=== PATIENT | male | born 1940 | race American Indian/Alaskan Native ===

== ENCOUNTER 2018-06-25 11:27 | Inpatient (IN) | payer MEDICARE ==
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
[2018-06-25 13:42] LABS: Hematocrit 49.8 % (35.5-45.6); Hemoglobin 16.3 gm/dl (11.8-15.2); Mean Corpuscular HGB Conc 33 % (32-34); Mean Corpuscular Volume 90 fl (84-94); Platelet Count 323 K/mm3 (140-440); Red Blood Count 5.52 M/mm3 (3.65-5.03); Red Cell Distribution Width 15.5 % (13.2-15.2)
[2018-06-25 13:45] LABS: Albumin 3.3 g/dL (3.9-5); Calcium 8.7 mg/dL (8.4-10.2)
[2018-06-25 13:51] LABS: INR 1.47 (0.87-1.13)
[2018-06-25 13:53] LABS: Partial Thromboplastin Time 34.5 Sec. (24.2-36.6)
[2018-06-25] MEDS ORDERED: NACL 0.9% 1000 ML 1,000 ML IV ONE (14:02)
[2018-06-25 15:13] LABS: Basophils % (Manual) 0 % (0.0-1.8); Eosinophils % (Manual) 0 % (0.0-4.3); RBC Morphology Normal; Total Cells Counted 100
[2018-06-25 15:21] LABS: Chol/HDL Ratio 6.1 %
--- NOTE | 2018-06-25 15:34 | XRay Report ---
PROCEDURE: XR CHEST 1V AP TECHNIQUE: Chest radiograph, AP view. HISTORY: fall/chest pain COMPARISONS: None currently available. FINDINGS: Cardiac silhouette is within normal limits. There is no effusion. There is no pneumothorax. There is no consolidation. There are no suspicious osseous lesions. Degenerative changes in both shoulders. IMPRESSION: * No acute cardiopulmonary findings. This document is electronically signed by Jaun Ellington MD., June 25 2018 03:32:23 PM ET
[2018-06-25] MEDS ORDERED: VANCOMYCIN/NS 1 GM/250 ML 1 GM/250 ML BAG IV ONE (15:35)
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
[2018-06-25] MEDS ORDERED: VANCOMYCIN 2,000 MG in NACL 0.9% 500 ML 500 ML IV ONE (16:00)
--- NOTE | 2018-06-25 16:07 | History and Physical Report ---
History of Present Illness Chief complaint: Unresponsive History of present illness: 78 YO Male Assisted Living Facility Resident with HTN, Hypothyroidism, BPH, HLD, Sacral Decubitus Ulcers presents to ED for evaluation. Pt is nonverbal/confused and unable to provide history. History taken from ED Staff, EMS, and [facility] staff. As per staff, the patient was found to be confused with his clothes soiled in urine. Pt was last seen 4 days ago getting his mail. Maintenance personnel for the [facility] went into his apartment today and found the patient lying the floor. EMS notified and upon arrival the patient was found to be in distress and transported to [facility] ED. Pt seen and evaluated in ED and found to have Sepsis, Acidosis, Hypernatremia secondary to Volume Depletion, Rhabdomyolysis, Elevated LFT's, and Acute Renal Failure versus End Stage Renal Disease. Pt is lethargic, but is able to protect his airway, and has a positive gag reflex. Nephrology consulted in ED. Pt admitted to [facility] and initiated on sepsis protocol. No prior admissions for review. All listed medication reconciled at time of admission. Past History Past Medical History: hypertension, hyperlipidemia, hypothyroidism, other (BPH, Sacral Decubitus Ulcers) Past Surgical History: No surgical history, Other (UTO) Social history: single. denies: smoking, alcohol abuse, prescription drug abuse Family history: hypertension Medications and Allergies Allergies Allergy/AdvReac Type Severity Reaction Status Date / Time No Known Allergies Allergy Unverified 06/25/18 12:55 Home Medications Medication Instructions Recorded Confirmed Last Taken Type Amlodipine Besylate/Benazepril 1 each PO DAILY 06/25/18 06/25/18 Unknown History [Amlodipine-Benazepril 5-20 mg] Aspirin [Adult Aspirin Regimen] 81 mg PO DAILY 06/25/18 06/25/18 Unknown History AtorvaSTATin [Lipitor] 40 mg PO QHS 06/25/18 06/25/18 Unknown History Losartan [Cozaar] 100 mg PO QDAY 06/25/18 06/25/18 Unknown History Tamsulosin [Flomax] 0.4 mg PO QDAY 06/25/18 06/25/18 Unknown History Active Meds: Active Medications Vancomycin HCl 2,000 mg/ (Sodium Chloride) 540 mls @ 250 mls/hr IV ONCE ONE Stop: 06/25/18 18:09 Review of Systems ROS unobtainable: due to mental status Exam - Constitutional Vitals: Temp Pulse Resp BP Pulse Ox 97.4 F L 114 H 16 113/78 98 06/25/18 12:45 06/25/18 12:45 06/25/18 12:45 06/25/18 12:45 06/25/18 12:45 General appearance: Present: severe distress - EENT Eyes: Present: miosis ENT: poor dentition - Neck Neck: Present: supple, normal ROM - Respiratory Respiratory effort: normal Respiratory: bilateral: CTA - Cardiovascular Heart Sounds: Present: S1 & S2. Absent: rub, click - Extremities Extremities: abnormal (contracture) Extremity abnormal: ulceration Peripheral Pulses: abnormal - Abdominal General gastrointestinal: Present: soft, non-tender, non-distended, normal bowel sounds Male genitourinary: Present: normal - Integumentary Integumentary: Present: dry, clammy, decreased turgor - Musculoskeletal Musculoskeletal: generalized weakness - Psychiatric Psychiatric: no appropriate mood/affect, no intact judgment & insight, no memory intact - Neurologic Neurologic: moves all extremities, no gait normal Results - Labs CBC & Chem 7: 06/25/18 13:29 06/25/18 13:13 Labs: Abnormal lab results 06/25/18 06/25/18 06/25/18 Range/Units 13:13 13:29 13:29 WBC 26.7 H (4.5-11.0) K/mm3 RBC 5.52 H (3.65-5.03) M/mm3 Hgb 16.3 H (11.8-15.2) gm/dl Hct 49.8 H (35.5-45.6) % RDW 15.5 H (13.2-15.2) % Seg Neuts % (Manual) 87.0 H (40.0-70.0) % Lymphocytes % (Manual) 5.0 L (13.4-35.0) % Monocytes % (Manual) 8.0 H (0.0-7.3) % Seg Neutrophils # Man 23.2 H (1.8-7.7) K/mm3 Monocytes # (Manual) 2.1 H (0.0-0.8) K/mm3 PT 18.8 H (12.2-14.9) Sec. INR 1.47 H (0.87-1.13) Sodium 156 H (137-145) mmol/L Chloride 111.4 H (98-107) mmol/L Carbon Dioxide 15 L (22-30) mmol/L BUN 162 H (9-20) mg/dL Creatinine 8.2 H (0.8-1.5) mg/dL Glucose 190 H (75-100) mg/dL Lactic Acid (0.7-2.0) mmol/L Total Bilirubin 3.20 H (0.1-1.2) mg/dL AST 100 H (5-40) units/L ALT 134 H (7-56) units/L Alkaline Phosphatase 170 H (35-129) units/L Total Creatine Kinase (55-170) units/L Troponin T (0.00-0.029) ng/mL Albumin 3.3 L (3.9-5) g/dL Triglycerides (2-149) mg/dL HDL Cholesterol (40-59) mg/dL 06/25/18 06/25/18 Range/Units 13:29 13:29 WBC (4.5-11.0) K/mm3 RBC (3.65-5.03) M/mm3 Hgb (11.8-15.2) gm/dl Hct (35.5-45.6) % RDW (13.2-15.2) % Seg Neuts % (Manual) (40.0-70.0) % Lymphocytes % (Manual) (13.4-35.0) % Monocytes % (Manual) (0.0-7.3) % Seg Neutrophils # Man (1.8-7.7) K/mm3 Monocytes # (Manual) (0.0-0.8) K/mm3 PT (12.2-14.9) Sec. INR (0.87-1.13) Sodium (137-145) mmol/L Chloride (98-107) mmol/L Carbon Dioxide (22-30) mmol/L BUN (9-20) mg/dL Creatinine (0.8-1.5) mg/dL Glucose (75-100) mg/dL Lactic Acid 6.70 H* (0.7-2.0) mmol/L Total Bilirubin (0.1-1.2) mg/dL AST (5-40) units/L ALT (7-56) units/L Alkaline Phosphatase (35-129) units/L Total Creatine Kinase 5097 H (55-170) units/L Troponin T 0.085 H (0.00-0.029) ng/mL Albumin (3.9-5) g/dL Triglycerides 167 H (2-149) mg/dL HDL Cholesterol 30 L (40-59) mg/dL Assessment and Plan - Patient Problems (1) Sepsis Current Visit: Yes Status: Acute Qualifiers: Sepsis type: sepsis due to unspecified organism Qualified Code(s): A41.9 - Sepsis, unspecified organism Plan to address problem: Sepsis protocol: IV antibiotic therapy, blood cultures, urinalysis, chest x ray, CBC, CMP, monitor uop q shift, iv pressor support as clinically indicated, Admit to IMCU. (2) Rhabdomyolysis Current Visit: Yes Status: Acute Qualifiers: Encounter type: initial encounter Plan to address problem: IVF resuscitation, monitor uop q shift, IV bicarbonate x1, nephrology consulted, repeat CK level in AM. (3) Elevated LFTs Current Visit: Yes Status: Acute Plan to address problem: Abdominal ultrasound to assess liver, hepatitis panel, (4) ARF (acute renal failure) with tubular necrosis Current Visit: Yes Status: Acute Plan to address problem: IVF resuscitation therapy, monitor uop q shift, avoid nephrotoxic agents, PSA level, urine electrolytes, nephrology consulted (5) Volume depletion Current Visit: Yes Status: Acute Plan to address problem: IVF resuscitation therapy, monitor uop q shift. (6) Encephalopathy Current Visit: Yes Status: Acute Plan to address problem: CT Head/Brain without contrast, neuro checks, seizure precautions, aspiration precautions, (7) DVT prophylaxis Current Visit: Yes Status: Acute Plan to address problem: SCD to BLE while in bed, prophylactic heparin
[2018-06-25] MEDS ORDERED: NACL 0.9% 1000 ML IV ONE (16:47)
[2018-06-25] MEDS ORDERED: SODIUM CHLORIDE FLUSH SYRINGE 10 ML IV PRN (16:47)
[2018-06-25 17:38] LABS: Hepatitis B Surface Antigen Non-Reactive (Negative); Hepatitis C Virus Antibody Non-Reactive (NonReactive)
[2018-06-25] MEDS ORDERED: NACL 0.9% 1000 ML 1,000 ML ONE (18:53)
--- NOTE | 2018-06-25 20:22 | Cat Scan Report ---
PROCEDURE: CT CERVICAL SPINE WO CON HISTORY: AMS, fall FINDINGS: Unenhanced CT of the cervical spine was performed and data was reformatted in the sagittal and coronal planes. These images demonstrate no fracture or malalignment of the cervical spine. There is anterior plate e cindi at C3 C4, C4 C5, C5 C6 and C6-C7. The prevertebral soft tissues are within normal limits. There is COPD at the pulmonary apices. There is atherosclerosis of the cervical arterial vasculature. IMPRESSION: No fracture is seen in the cervical spine This document is electronically signed by Adiel Brandt MD., June 25 2018 08:20:32 PM ET
--- NOTE | 2018-06-25 20:24 | Cat Scan Report ---
PROCEDURE: CT HEAD/BRAIN WO CON HISTORY: Altered Mental Status FINDINGS: Unenhanced CT of the brain was performed and demonstrates no acute intracranial hemorrhage, extra-axial fluid collection, midline shift or mass effect. The ventricles and basal cisterns are no t effaced. 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 There is an old left periventricular white mae er infarct, 1.7 x 0.8 cm. No definite acute infarct is seen. MRI may be considered if patient has persistent altered mental sta tus. The mastoid air cells and middle ears appear clear. There is no evidence of acute sinusitis. IMPRESSION: No acute intracranial hemorrhage This document is electronically signed by Adiel Brandt MD., June 25 2018 08:22:08 PM ET
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
[2018-06-26] MEDS: ZOSYN/NS 4.5GM/100ML 4.5 GM/100 ML VIAL IV SCH (02:40)
[2018-06-26] MEDS ORDERED: HEPARIN ONE ×3 (03:03→23:28)
[2018-06-26] MEDS ORDERED: ZOSYN/NS 4.5GM/100ML 0 GM/0 ML VIAL IV ONE (03:05)
[2018-06-26] MEDS: SODIUM CHLORIDE FLUSH SYRINGE 10 ML IV SCH ×3 (03:36→23:00)
[2018-06-26] MEDS: HEPARIN SUB-Q SCH ×3 (03:36→23:27)
--- NOTE | 2018-06-26 09:44 | Progress Note ---
Assessment and Plan Assessment and plan: --Sepsis/lactic acidosis/leukocytosis; Continue empiric antibiotics, follow cultures ID evaluation if needed --Hypernatremia; continue IV fluids Closely monitor electrolytes, nephrology following --Acute Renal failure: nephrology following --Hypertension; moderate control, continue current antihypertensives When necessary medications --Dyslipidemia; hold statin in view of rhabdomyolysis --Rhabdomyolysis CK 6427; hemodialysis, gentle hydration Closely monitor his CK levels --Bladder outlet obstruction; secondary to enlarged prostate Unable to pass Antoine catheter, urology consultation --Mild malnutrition/hypoalbuminemia; nutrition supplements and supportive care --Abdominal aortic aneurysm 6.5 cm impending rupture; on CT abdomen, Dr. Mazariegos discussed with vascular , advised to closely monitor medical management, no indication for patient transfer .Vascular following --DVT prophylaxis; heparin renal dose --Full CODE STATUS Plan monitor the patient closely and adjust management as needed Follow-up consults evaluation and recommendations Patient is critically ill with guarded prognosis No contact persons information/no next of kin information Available in the chart Critical care time 35 minutes History Interval history: Patient seen and examined medical records reviewed Patient looks critically ill, cachectic confused In mild distress, Noncommunicative, vital signs noted Awaiting IMCU bed assignment Hospitalist Physical - Constitutional Vitals: Temp Pulse Resp BP Pulse Ox 97.4 F L 110 H 28 H 131/70 100 06/25/18 12:45 06/26/18 08:16 06/26/18 08:16 06/26/18 08:16 06/26/18 08:16 General appearance: Present: severe distress, cachectic, disheveled - EENT Eyes: Present: PERRL, EOM intact - Neck Neck: Present: supple - Respiratory Respiratory effort: normal Respiratory: bilateral: diminished, rhonchi, negative: rales, wheezing - Cardiovascular Rhythm: regular Heart Sounds: Present: S1 & S2 - Extremities Extremities: no ischemia, No edema - Abdominal General gastrointestinal: soft, non-tender, non-distended, normal bowel sounds - Integumentary Integumentary: Present: clear, warm - Psychiatric Psychiatric: other (noncommunicative) - Neurologic Neurologic: other ( noncommunicative) Results - Labs CBC & Chem 7: 06/25/18 13:29 06/25/18 13:13 Labs: Laboratory Last Values WBC 26.7 K/mm3 (4.5-11.0) H 06/25/18 13:29 RBC 5.52 M/mm3 (3.65-5.03) H 06/25/18 13:29 Hgb 16.3 gm/dl (11.8-15.2) H 06/25/18 13:29 Hct 49.8 % (35.5-45.6) H 06/25/18 13:29 MCV 90 fl (84-94) 06/25/18 13:29 MCH 30 pg (28-32) 06/25/18 13:29 MCHC 33 % (32-34) 06/25/18 13:29 RDW 15.5 % (13.2-15.2) H 06/25/18 13:29 Plt Count 323 K/mm3 (140-440) 06/25/18 13:29 Add Manual Diff Complete 06/25/18 13:29 Total Counted 100 06/25/18 13:29 Seg Neutrophils % Life Educator 06/25/18 13:29 Seg Neuts % (Manual) 87.0 % (40.0-70.0) H 06/25/18 13:29 Band Neutrophils % 0 % 06/25/18 13:29 Lymphocytes % (Manual) 5.0 % (13.4-35.0) L 06/25/18 13:29 Reactive Lymphs % (Man) 0 % 06/25/18 13:29 Monocytes % (Manual) 8.0 % (0.0-7.3) H 06/25/18 13:29 Eosinophils % (Manual) 0 % (0.0-4.3) 06/25/18 13:29 Basophils % (Manual) 0 % (0.0-1.8) 06/25/18 13:29 Metamyelocytes % 0 % 06/25/18 13:29 Myelocytes % 0 % 06/25/18 13:29 Promyelocytes % 0 % 06/25/18 13:29 Blast Cells % 0 % 06/25/18 13:29 Nucleated RBC % Not Reportable 06/25/18 13:29 Seg Neutrophils # Man 23.2 K/mm3 (1.8-7.7) H 06/25/18 13:29 Band Neutrophils # 0.0 K/mm3 06/25/18 13:29 Lymphocytes # (Manual) 1.3 K/mm3 (1.2-5.4) 06/25/18 13:29 Abs React Lymphs (Man) 0.0 K/mm3 06/25/18 13:29 Monocytes # (Manual) 2.1 K/mm3 (0.0-0.8) H 06/25/18 13:29 Eosinophils # (Manual) 0.0 K/mm3 (0.0-0.4) 06/25/18 13:29 Basophils # (Manual) 0.0 K/mm3 (0.0-0.1) 06/25/18 13:29 Metamyelocytes # 0.0 K/mm3 06/25/18 13:29 Myelocytes # 0.0 K/mm3 06/25/18 13:29 Promyelocytes # 0.0 K/mm3 06/25/18 13:29 Blast Cells # 0.0 K/mm3 06/25/18 13:29 WBC Morphology Not Reportable 06/25/18 13:29 Hypersegmented Neuts Not Reportable 06/25/18 13:29 Hyposegmented Neuts Not Reportable 06/25/18 13:29 Hypogranular Neuts Not Reportable 06/25/18 13:29 Smudge Cells Not Reportable 06/25/18 13:29 Toxic Granulation Not Reportable 06/25/18 13:29 Toxic Vacuolation Not Reportable 06/25/18 13:29 Dohle Bodies Not Reportable 06/25/18 13:29 Pelger-Huet Anomaly Not Reportable 06/25/18 13:29 Palma Rods Not Reportable 06/25/18 13:29 Platelet Estimate Not Reportable 06/25/18 13:29 Clumped Platelets Not Reportable 06/25/18 13:29 Plt Clumps, EDTA Not Reportable 06/25/18 13:29 Large Platelets Not Reportable 06/25/18 13:29 Giant Platelets Not Reportable 06/25/18 13:29 Platelet Satelliting Not Reportable 06/25/18 13:29 Plt Morphology Comment Not Reportable 06/25/18 13:29 RBC Morphology Normal 06/25/18 13:29 Dimorphic RBCs Not Reportable 06/25/18 13:29 Polychromasia Not Reportable 06/25/18 13:29 Hypochromasia Not Reportable 06/25/18 13:29 Poikilocytosis Not Reportable 06/25/18 13:29 Anisocytosis Not Reportable 06/25/18 13:29 Microcytosis Not Reportable 06/25/18 13:29 Macrocytosis Not Reportable 06/25/18 13:29 Spherocytes Not Reportable 06/25/18 13:29 Pappenheimer Bodies Not Reportable 06/25/18 13:29 Sickle Cells Not Reportable 06/25/18 13:29 Target Cells Not Reportable 06/25/18 13:29 Tear Drop Cells Not Reportable 06/25/18 13:29 Ovalocytes Not Reportable 06/25/18 13:29 Helmet Cells Not Reportable 06/25/18 13:29 Quispe-Goree Bodies Not Reportable 06/25/18 13:29 [place] Rings Not Reportable 06/25/18 13:29 Narciso Cells Not Reportable 06/25/18 13:29 Bite Cells Not Reportable 06/25/18 13:29 Crenated Cell Not Reportable 06/25/18 13:29 Elliptocytes Not Reportable 06/25/18 13:29 Acanthocytes (Spur) Not Reportable 06/25/18 13:29 Rouleaux Not Reportable 06/25/18 13:29 Hemoglobin C Crystals Not Reportable 06/25/18 13:29 Schistocytes Not Reportable 06/25/18 13:29 Malaria parasites Not Reportable 06/25/18 13:29 Aniket Bodies Not Reportable 06/25/18 13:29 Hem Pathologist Commnt No 06/25/18 13:29 PT 18.8 Sec. (12.2-14.9) H 06/25/18 13:29 INR 1.47 (0.87-1.13) H 06/25/18 13:29 APTT 34.5 Sec. (24.2-36.6) 06/25/18 13:29 Sodium 156 mmol/L (137-145) H 06/25/18 13:13 Potassium 4.8 mmol/L (3.6-5.0) 06/25/18 13:13 Chloride 111.4 mmol/L (98-107) H 06/25/18 13:13 Carbon Dioxide 15 mmol/L (22-30) L 06/25/18 13:13 Anion Gap 34 mmol/L 06/25/18 13:13 BUN 162 mg/dL (9-20) H 06/25/18 13:13 Creatinine 8.2 mg/dL (0.8-1.5) H 06/25/18 13:13 Estimated GFR 8 ml/min 06/25/18 13:13 BUN/Creatinine Ratio 20 % 06/25/18 13:13 Glucose 190 mg/dL (75-100) H 06/25/18 13:13 Lactic Acid 2.00 mmol/L (0.7-2.0) 06/26/18 06:08 Calcium 8.7 mg/dL (8.4-10.2) 06/25/18 13:13 Total Bilirubin 3.20 mg/dL (0.1-1.2) H 06/25/18 13:13 AST 100 units/L (5-40) H 06/25/18 13:13 ALT 134 units/L (7-56) H 06/25/18 13:13 Alkaline Phosphatase 170 units/L (35-129) H 06/25/18 13:13 Ammonia 55.0 umol/L (25-60) 06/25/18 13:29 Total Creatine Kinase 6427 units/L (55-170) H 06/26/18 04:28 Troponin T 0.085 ng/mL (0.00-0.029) H 06/25/18 13:29 Total Protein 8.0 g/dL (6.3-8.2) 06/25/18 13:13 Albumin 3.3 g/dL (3.9-5) L 06/25/18 13:13 Albumin/Globulin Ratio 0.7 % 06/25/18 13:13 Triglycerides 167 mg/dL (2-149) H 06/25/18 13:29 Cholesterol 183 mg/dL (50-199) 06/25/18 13:29 LDL Cholesterol Direct 118 mg/dL (50-130) 06/25/18 13:29 HDL Cholesterol 30 mg/dL (40-59) L 06/25/18 13:29 Cholesterol/HDL Ratio 6.10 % 06/25/18 13:29 Prostate Specific Ag 41.28 ng/mL (0.00-4.00) H 06/25/18 18:11 TSH 1.640 mlU/mL (0.270-4.200) 06/25/18 13:29 Plasma/Serum Alcohol < 0.01 % (0-0.07) 06/25/18 13:29 Hepatitis A IgM Ab Non-reactive (NonReactive) 06/25/18 16:45 Hep Bs Antigen Non-reactive (Negative) 06/25/18 16:45 Hep B Core IgM Ab Non-reactive (NonReactive) 06/25/18 16:45 Hepatitis C Antibody Non-reactive (NonReactive) 06/25/18 16:45 Active Medications - Current Medications Current Medications: Generic Name Dose Route Start Last Admin Trade Name Freq PRN Reason Stop Dose Admin Atorvastatin Calcium 40 mg 06/25/18 22:00 06/26/18 03:36 Lipitor PO Not Given QHS [facility] Heparin Sodium (Porcine) 5,000 unit 06/25/18 22:00 06/26/18 03:36 Heparin SUB-Q 5,000 unit Q12HR KATIE Administration Piperacillin Sod/Tazobactam Sod 4.5 gm in 100 mls @ 200 mls/hr 06/25/18 22:00 06/26/18 02:40 Zosyn/Ns 4.5gm/100ml IV 200 mls/hr Q8HR KATIE Administration Protocol Sodium Chloride 10 ml 06/25/18 22:00 06/26/18 03:36 Sodium Chloride Flush Syringe 10 Ml IV 10 ml BID KATIE Administration Sodium Chloride 10 ml 06/25/18 16:47 Sodium Chloride Flush Syringe 10 Ml IV PRN PRN LINE FLUSH Tamsulosin HCl 0.4 mg 06/26/18 10:00 Flomax PO QDAY [facility]
--- NOTE | 2018-06-26 10:03 | Consultation ---
History of Present Illness - Reason for Consult Consult date: 06/26/18 infrarenal abdominal aortic aneurysm Requesting physician: ALEXIS NESS - History of Present Illness Patient is a 78-year-old custodial resident that was sent to the emergency room for altered mental status. Patient is known to have decubiti. As part of his workup a CT scan was done in the emergency room which showed a 6.5 cm infrarenal abdominal aortic aneurysm. Radiology reading of the report suggested that this was consistent with an imminent rupture. We have been asked to evaluate the patient. Past History Past Medical History: hypertension, hyperlipidemia, hypothyroidism, other (BPH, Sacral Decubitus Ulcers) Past Surgical History: No surgical history, Other (UTO) Social history: single. denies: smoking, alcohol abuse, prescription drug abuse Family history: hypertension Medications and Allergies Allergies Allergy/AdvReac Type Severity Reaction Status Date / Time No Known Allergies Allergy Unverified 06/25/18 12:55 Home Medications Medication Instructions Recorded Confirmed Last Taken Type Amlodipine Besylate/Benazepril 1 each PO DAILY 06/25/18 06/25/18 Unknown History [Amlodipine-Benazepril 5-20 mg] Aspirin [Adult Aspirin Regimen] 81 mg PO DAILY 06/25/18 06/25/18 Unknown History AtorvaSTATin [Lipitor] 40 mg PO QHS 06/25/18 06/25/18 Unknown History Losartan [Cozaar] 100 mg PO QDAY 06/25/18 06/25/18 Unknown History Tamsulosin [Flomax] 0.4 mg PO QDAY 06/25/18 06/25/18 Unknown History Active Meds: Active Medications Atorvastatin Calcium (Lipitor) 40 mg PO QHS [facility] Last Admin: 06/26/18 03:36 Dose: Not Given Documented by: Heparin Sodium (Porcine) (Heparin) 5,000 unit SUB-Q Q12HR [facility] Last Admin: 06/26/18 03:36 Dose: 5,000 unit Documented by: Piperacillin Sod/Tazobactam Sod (Zosyn/Ns 4.5gm/100ml) 4.5 gm in 100 mls @ 200 mls/hr IV Q8HR KATIE; Protocol Last Admin: 06/26/18 02:40 Dose: 200 mls/hr Documented by: Sodium Chloride (Sodium Chloride Flush Syringe 10 Ml) 10 ml IV BID [facility] Last Admin: 06/26/18 03:36 Dose: 10 ml Documented by: Sodium Chloride (Sodium Chloride Flush Syringe 10 Ml) 10 ml IV PRN PRN PRN Reason: LINE FLUSH Tamsulosin HCl (Flomax) 0.4 mg PO QDAY [facility] Review of Systems All systems: negative (she cannot meaningfully participate in review of systems) Exam - Constitutional Vitals: Temp Pulse Resp BP Pulse Ox 97.4 F L 110 H 28 H 131/70 100 06/25/18 12:45 06/26/18 08:16 06/26/18 08:16 06/26/18 08:16 06/26/18 08:16 General appearance: Present: no acute distress, other (patient appears to be disheveled and minimally responsive) - EENT Eyes: Present: PERRL, EOM intact ENT: hearing intact - Neck Neck: Present: supple, normal ROM - Respiratory Respiratory effort: normal Respiratory: bilateral: CTA - Cardiovascular Heart Sounds: Present: S1 & S2. Absent: rub, click - Extremities Extremities: No edema, abnormal (she has no palpable pedal pulses but no evidence of acute ischemia distally) - Abdominal General gastrointestinal: Present: soft, non-tender, non-distended, normal bowel sounds - Integumentary Integumentary: Present: clear, warm, dry - Musculoskeletal Musculoskeletal: other (to determine) - Psychiatric Psychiatric: other (patient is essentially minimally responsive) - Neurologic Neurologic: other (no obvious focal abnormalities noted) Results - Labs CBC & Chem 7: 06/25/18 13:29 06/25/18 13:13 Labs: Abnormal lab results 06/25/18 06/25/18 06/25/18 Range/Units 13:13 13:29 13:29 WBC 26.7 H (4.5-11.0) K/mm3 RBC 5.52 H (3.65-5.03) M/mm3 Hgb 16.3 H (11.8-15.2) gm/dl Hct 49.8 H (35.5-45.6) % RDW 15.5 H (13.2-15.2) % Seg Neuts % (Manual) 87.0 H (40.0-70.0) % Lymphocytes % (Manual) 5.0 L (13.4-35.0) % Monocytes % (Manual) 8.0 H (0.0-7.3) % Seg Neutrophils # Man 23.2 H (1.8-7.7) K/mm3 Monocytes # (Manual) 2.1 H (0.0-0.8) K/mm3 PT 18.8 H (12.2-14.9) Sec. INR 1.47 H (0.87-1.13) Sodium 156 H (137-145) mmol/L Chloride 111.4 H (98-107) mmol/L Carbon Dioxide 15 L (22-30) mmol/L BUN 162 H (9-20) mg/dL Creatinine 8.2 H (0.8-1.5) mg/dL Glucose 190 H (75-100) mg/dL Lactic Acid (0.7-2.0) mmol/L Total Bilirubin 3.20 H (0.1-1.2) mg/dL AST 100 H (5-40) units/L ALT 134 H (7-56) units/L Alkaline Phosphatase 170 H (35-129) units/L Total Creatine Kinase (55-170) units/L Troponin T (0.00-0.029) ng/mL Albumin 3.3 L (3.9-5) g/dL Triglycerides (2-149) mg/dL HDL Cholesterol (40-59) mg/dL Prostate Specific Ag (0.00-4.00) ng/mL 06/25/18 06/25/18 06/25/18 Range/Units 13:29 13:29 15:00 WBC (4.5-11.0) K/mm3 RBC (3.65-5.03) M/mm3 Hgb (11.8-15.2) gm/dl Hct (35.5-45.6) % RDW (13.2-15.2) % Seg Neuts % (Manual) (40.0-70.0) % Lymphocytes % (Manual) (13.4-35.0) % Monocytes % (Manual) (0.0-7.3) % Seg Neutrophils # Man (1.8-7.7) K/mm3 Monocytes # (Manual) (0.0-0.8) K/mm3 PT (12.2-14.9) Sec. INR (0.87-1.13) Sodium (137-145) mmol/L Chloride (98-107) mmol/L Carbon Dioxide (22-30) mmol/L BUN (9-20) mg/dL Creatinine (0.8-1.5) mg/dL Glucose (75-100) mg/dL Lactic Acid 6.70 H* 5.20 H* (0.7-2.0) mmol/L Total Bilirubin (0.1-1.2) mg/dL AST (5-40) units/L ALT (7-56) units/L Alkaline Phosphatase (35-129) units/L Total Creatine Kinase 5097 H (55-170) units/L Troponin T 0.085 H (0.00-0.029) ng/mL Albumin (3.9-5) g/dL Triglycerides 167 H (2-149) mg/dL HDL Cholesterol 30 L (40-59) mg/dL Prostate Specific Ag (0.00-4.00) ng/mL 06/25/18 06/25/18 06/25/18 Range/Units 18:11 19:41 22:34 WBC (4.5-11.0) K/mm3 RBC (3.65-5.03) M/mm3 Hgb (11.8-15.2) gm/dl Hct (35.5-45.6) % RDW (13.2-15.2) % Seg Neuts % (Manual) (40.0-70.0) % Lymphocytes % (Manual) (13.4-35.0) % Monocytes % (Manual) (0.0-7.3) % Seg Neutrophils # Man (1.8-7.7) K/mm3 Monocytes # (Manual) (0.0-0.8) K/mm3 PT (12.2-14.9) Sec. INR (0.87-1.13) Sodium (137-145) mmol/L Chloride (98-107) mmol/L Carbon Dioxide (22-30) mmol/L BUN (9-20) mg/dL Creatinine (0.8-1.5) mg/dL Glucose (75-100) mg/dL Lactic Acid 3.90 H* 2.70 H* (0.7-2.0) mmol/L Total Bilirubin (0.1-1.2) mg/dL AST (5-40) units/L ALT (7-56) units/L Alkaline Phosphatase (35-129) units/L Total Creatine Kinase (55-170) units/L Troponin T (0.00-0.029) ng/mL Albumin (3.9-5) g/dL Triglycerides (2-149) mg/dL HDL Cholesterol (40-59) mg/dL Prostate Specific Ag 41.28 H (0.00-4.00) ng/mL 06/25/18 06/26/18 06/26/18 Range/Units 23:37 04:28 04:28 WBC (4.5-11.0) K/mm3 RBC (3.65-5.03) M/mm3 Hgb (11.8-15.2) gm/dl Hct (35.5-45.6) % RDW (13.2-15.2) % Seg Neuts % (Manual) (40.0-70.0) % Lymphocytes % (Manual) (13.4-35.0) % Monocytes % (Manual) (0.0-7.3) % Seg Neutrophils # Man (1.8-7.7) K/mm3 Monocytes # (Manual) (0.0-0.8) K/mm3 PT (12.2-14.9) Sec. INR (0.87-1.13) Sodium (137-145) mmol/L Chloride (98-107) mmol/L Carbon Dioxide (22-30) mmol/L BUN (9-20) mg/dL Creatinine (0.8-1.5) mg/dL Glucose (75-100) mg/dL Lactic Acid 4.90 H* 2.30 H* (0.7-2.0) mmol/L Total Bilirubin (0.1-1.2) mg/dL AST (5-40) units/L ALT (7-56) units/L Alkaline Phosphatase (35-129) units/L Total Creatine Kinase 6427 H (55-170) units/L Troponin T (0.00-0.029) ng/mL Albumin (3.9-5) g/dL Triglycerides (2-149) mg/dL HDL Cholesterol (40-59) mg/dL Prostate Specific Ag (0.00-4.00) ng/mL - Imaging and Cardiology CT scan - abdomen: other (patient has a 6.5 cm infrarenal abdominal aortic aneurysm. This aneurysm is intact. There are no obvious radiologic criteria suggestive of an impending rupture.) Assessment and Plan - Patient Problems (1) Aortic aneurysm without rupture Current Visit: Yes Status: Chronic Qualifiers: Aortic location: abdominal aorta Qualified Code(s): I71.4 - Abdominal aortic aneurysm, without rupture Plan to address problem: Patient is a 78-year-old man in poor health with acute renal insufficiency. He is being admitted for altered mental status. As part of his evaluation a CT scan was done of his abdomen which showed a 6.5 cm infrarenal abdominal aortic aneurysm. The radiologic report indicates impending rupture. There are no established reliable criteria to determine whether or not an aneurysm will rupture or not based on the appearance of the chronic thrombus in the lumen of the aneurysm. This aneurysm appears to be intact. There is no evidence of inflammatory changes around the aneurysm. This aneurysm is clearly been present for an extended period of time because of its size. Recommend continued evaluation for other medical problems. No emergent care needs to be directed toward the infrarenal abdominal aortic aneurysm at this time.
[2018-06-26] MEDS: FLOMAX PO SCH (10:14)
[2018-06-26] MEDS ORDERED: ZOSYN/NS 4.5GM/100ML 4.5 GM/100 ML VIAL IV ONE (10:36)
--- NOTE | 2018-06-26 11:40 | Consultation ---
History of Present Illness - Reason for Consult Consult date: 06/26/18 acute renal failure, chronic renal failure - History of Present Illness the patient is a 78 [place] old male who resides in assisted home was brought to the ED yesterday after he was foudn down, it is unclear for how long he was down but possible for the last 4 days, in the ED he was found to have severe renal failure, metabolic acidosis, elevated CK, leukocytosis. he was started on Iv vanco and zosyn and was bolused 2 L NS, renal consult was requested for severe real failure Past History Past Medical History: hypertension, hyperlipidemia, hypothyroidism, other (BPH, Sacral Decubitus Ulcers) Past Surgical History: No surgical history, Other (UTO) Social history: single. denies: smoking, alcohol abuse, prescription drug abuse Family history: hypertension Medications and Allergies Allergies Allergy/AdvReac Type Severity Reaction Status Date / Time No Known Allergies Allergy Unverified 06/25/18 12:55 Home Medications Medication Instructions Recorded Confirmed Last Taken Type Amlodipine Besylate/Benazepril 1 each PO DAILY 06/25/18 06/25/18 Unknown History [Amlodipine-Benazepril 5-20 mg] Aspirin [Adult Aspirin Regimen] 81 mg PO DAILY 06/25/18 06/25/18 Unknown History AtorvaSTATin [Lipitor] 40 mg PO QHS 06/25/18 06/25/18 Unknown History Losartan [Cozaar] 100 mg PO QDAY 06/25/18 06/25/18 Unknown History Tamsulosin [Flomax] 0.4 mg PO QDAY 06/25/18 06/25/18 Unknown History Active Meds: Active Medications Heparin Sodium (Porcine) (Heparin) 5,000 unit SUB-Q Q12HR [facility] Last Admin: 06/26/18 10:20 Dose: 5,000 unit Documented by: Piperacillin Sod/Tazobactam Sod (Zosyn/Ns 2.25 Gm/50ml) 2.25 gm in 50 mls @ 100 mls/hr IV Q8HR [facility] Sodium Chloride (Sodium Chloride Flush Syringe 10 Ml) 10 ml IV BID [facility] Last Admin: 06/26/18 10:14 Dose: 10 ml Documented by: Sodium Chloride (Sodium Chloride Flush Syringe 10 Ml) 10 ml IV PRN PRN PRN Reason: LINE FLUSH Tamsulosin HCl (Flomax) 0.4 mg PO QDAY [facility] Last Admin: 06/26/18 10:14 Dose: Not Given Documented by: Review of Systems ROS unobtainable: due to mental status Exam - Vital Signs Vital signs: Vital Signs Pulse Resp 111 H 24 06/25/18 12:36 06/25/18 12:36 - General Appearance General appearance: well-developed, well-nourished EENT: ATNC, PERRL, mucous membranes dry Neck: Present: neck supple Respiratory: Decreased Breath Sounds Heart: regular, tachycardia, S1S2 Gastrointestinal: Present: normoactive bowel sounds. Absent: tenderness, distended Integumentary: no rash, warm and dry Neurologic: other (follows simaple commands) Musculoskeletal: Present: other (no edema in BLE) Psychiatric: other (answeres simple questions) Results - Lab Results 06/25/18 13:29 06/25/18 13:13 Most recent lab results Calcium 8.7 mg/dL (8.4-10.2) 06/25/18 13:13 Assessment and Plan severe renal failure, likely ATN from volume depletion, sepsis and rhbdo vs prerenal azotemia. baseline creatinine is unknown AG acidosis secondary to renal failure and lactic acidosis metabolic encephalopathy secondary to sepsis but cannot r/o uremia, baseline is unknown Sepsis Rhabdomyolysis Elevated LFTs - IVF ordered 1/2 NS bharat NaHCO3 75 MEQ @ 125 cc/h - according RN, not able to pass coelho catheter due to enlarged prostate, renal US ordered, so far anuric, will need coelho placement, if not able will need urology consult - urine lytes, protein ordered - no indication for LINING [employer]ER, but if no response to IVF and if cont to be oliguric will start HD - renally dose meds - strict I&O - daily weight Dangelo Wei MD [phone]
[2018-06-26] MEDS: NACL 0.45% 1000 ML 1,000 ML with SODIUM BICARBONATE 75 MEQ IV SCH ×2 (13:36→23:33)
[2018-06-26] MEDS: ZOSYN/NS 2.25 GM/50ML 2.25 GM/50 ML BAG IV SCH ×2 (16:00→23:00)
--- NOTE | 2018-06-26 18:23 | Consultation ---
History of Present Illness - Reason for Consult Consult date: 06/26/18 - History of Present Illness 78-year-old male presents to the emergency department via EMS from his assisted living facility with altered mental status and concern for a fall. The patient was last seen 4 days ago getting his mail. A supervisor cell maintenance went into his apartment today and found him lying on his right side with severe skin breakdown. There is concern that he has been on the floor for the past 4 days. He has a past medical history of hypertension, hypothyroidism, BPH and high cholesterol. Patient is currently AAO [address] not [address] or time. CT scan was done in the emergency room which showed a 6.5 cm infrarenal abdominal aortic aneurysm. distended bladder unable to get history from pt - chart reviewed nurse at bedside 27f --3way coelho (side port plugged) - pink tinged urine irrigated a/p BPH gross hematuria pt needs restraint/mittens coelho to gravity - manual irrigation with 30-60cc saline q 4 hours & prn Past History Past Medical History: hypertension, hyperlipidemia, hypothyroidism, other (BPH, Sacral Decubitus Ulcers) Past Surgical History: No surgical history, Other (UTO) Social history: single. denies: smoking, alcohol abuse, prescription drug abuse Family history: hypertension Medications and Allergies Allergies Allergy/AdvReac Type Severity Reaction Status Date / Time No Known Allergies Allergy Unverified 06/25/18 12:55 Home Medications Medication Instructions Recorded Confirmed Last Taken Type Amlodipine Besylate/Benazepril 1 each PO DAILY 06/25/18 06/25/18 Unknown History [Amlodipine-Benazepril 5-20 mg] Aspirin [Adult Aspirin Regimen] 81 mg PO DAILY 06/25/18 06/25/18 Unknown History AtorvaSTATin [Lipitor] 40 mg PO QHS 06/25/18 06/25/18 Unknown History Losartan [Cozaar] 100 mg PO QDAY 06/25/18 06/25/18 Unknown History Tamsulosin [Flomax] 0.4 mg PO QDAY 06/25/18 06/25/18 Unknown History Active Meds: Active Medications Heparin Sodium (Porcine) (Heparin) 5,000 unit SUB-Q Q12HR KATIE Last Admin: 06/26/18 10:20 Dose: 5,000 unit Documented by: Piperacillin Sod/Tazobactam Sod (Zosyn/Ns 2.25 Gm/50ml) 2.25 gm in 50 mls @ 100 mls/hr IV Q8HR [facility] Last Admin: 06/26/18 16:00 Dose: 100 mls/hr Documented by: Sodium Bicarbonate 75 meq/ (Sodium Chloride) 1,075 mls @ 125 mls/hr IV DIRECT [facility] Last Admin: 06/26/18 13:36 Dose: 125 mls/hr Documented by: Sodium Chloride (Sodium Chloride Flush Syringe 10 Ml) 10 ml IV BID [facility] Last Admin: 06/26/18 10:14 Dose: 10 ml Documented by: Sodium Chloride (Sodium Chloride Flush Syringe 10 Ml) 10 ml IV PRN PRN PRN Reason: LINE FLUSH Tamsulosin HCl (Flomax) 0.4 mg PO QDAY [facility] Last Admin: 06/26/18 10:14 Dose: Not Given Documented by: Exam - Constitutional Vitals: Temp Pulse Resp BP Pulse Ox 97.4 F L 101 H 25 H 112/53 94 06/25/18 12:45 06/26/18 14:31 06/26/18 14:31 06/26/18 14:31 06/26/18 14:31 Results - Labs CBC & Chem 7: 06/25/18 13:29 06/25/18 13:13 Labs: Abnormal lab results 06/25/18 06/25/18 06/25/18 Range/Units 18:11 19:41 22:34 Lactic Acid 3.90 H* 2.70 H* (0.7-2.0) mmol/L Total Creatine Kinase (55-170) units/L Prostate Specific Ag 41.28 H (0.00-4.00) ng/mL 06/25/18 06/26/18 06/26/18 Range/Units 23:37 04:28 04:28 Lactic Acid 4.90 H* 2.30 H* (0.7-2.0) mmol/L Total Creatine Kinase 6427 H (55-170) units/L Prostate Specific Ag (0.00-4.00) ng/mL
[2018-06-26 21:55] LABS: Creatinine,Urine 124.9 mg/dL (0.1-20.0)
[2018-06-26 21:58] LABS: Bacteria,Urine 4+ /HPF (Negative); Bilirubin,Urine NEG (Negative); Blood,Urine LG (Negative); Color,Urine Red (Yellow)
[2018-06-26 22:00] LABS: Amphetamine Screen,Urine PRESUMPTIVE NEGATIVE; Benzodiazepines Screen,Urine PRESUMPTIVE NEGATIVE; Cannabinoid Screen,Urine PRESUMPTIVE NEGATIVE; Cocaine Screen,Urine PRESUMPTIVE NEGATIVE; Creatinine,Urine 126.2 mg/dL (0.1-20.0); Methadone Screen,Urine PRESUMPTIVE NEGATIVE; Opiate Screen,Urine PRESUMPTIVE NEGATIVE; RBC,Urine > 182.0 /HPF (0.0-6.0); WBC,Urine > 182.0 /HPF (0.0-6.0)
--- NOTE | 2018-06-26 22:04 | Ultrasound Report ---
PROCEDURE: US ABDOMEN COMPLETE TECHNIQUE: Transverse longitudinal sonograms obtained with smith scale sonography HISTORY: elevated LFT's COMPARISONS: Abdominal pelvic CT June 25, 2018 FINDINGS: Limited study secondary to lack of acoustic window. Patient unable to cooperate with imaging. The visualized liver appears unremarkable. Sludge within the gallbladder. No cholelithiasis. Normal wall thickness. Common bile duct diameter is 0.7 cm. Normal for age. Pancreas obscured by bowel gas. Spleen obscured by bowel gas. Right kidney measures 9.6 x 4.1 x 4.2 cm. Left kidney measures 8.2 x 4.9 x 4 cm. Kidneys demonstrate cysts. No hydronephrosis. Left kidney is mildly atrophic. No free fluid IMPRESSION: The gallbladder demonstrates sludge Common bile duct diameter normal for age Kidneys demonstrate no hydronephrosis. Left kidney is mildly atrophic Pancreas and spleen obscured by bowel gas No free fluid This document is electronically signed by Andrey Wilson MD., June 26 2018 10:02:02 PM ET
[2018-06-26 22:22] LABS: Protein/Creatinine Ratio,Urine 6.58
[2018-06-27 06:17] LABS: Hematocrit 44.3 % (35.5-45.6); Hemoglobin 14.5 gm/dl (11.8-15.2); Mean Corpuscular HGB Conc 33 % (32-34); Mean Corpuscular Volume 89 fl (84-94); Platelet Count 274 K/mm3 (140-440); Red Cell Distribution Width 15.1 % (13.2-15.2)
[2018-06-27] MEDS: ZOSYN/NS 2.25 GM/50ML 2.25 GM/50 ML BAG IV SCH ×2 (06:34→16:23)
[2018-06-27 06:43] LABS: Calcium 8.5 mg/dL (8.4-10.2)
[2018-06-27] MEDS: ZOSYN/NS 4.5GM/100ML 4.5 GM/100 ML VIAL IV SCH (08:52)
--- NOTE | 2018-06-27 09:36 | Ultrasound Report ---
ULTRASOUND RENAL BILATERAL HISTORY: Renal failure. TECHNIQUE: transabdominal ultrasound with color Doppler interrogation. COMPARISON: none. FINDINGS: The right kidney measures 9.5 x 4.0 x 5.8cm. Right renal cortex: 1.3cm. The left kidney measures 10.9 x 4.7 x 4.9cm. Left renal cortex: 1.1cm. The kidneys are normal size, contour and position. There is increased renal cortical echotexture bilaterally consistent with nonspecific renal parenchymal disease. Corticomedullary differentiation is preserved. There are 2 cysts in the right kidney measuring 3.3 cm and 1.4 cm. A single cyst in the inferior left kidney measures 3.4 cm per No evidence for mass, nephrolithiasis, hydronephrosis or perinephric fluid. The views of the bladder and the region of the ureters appear normal. IMPRESSION: Nonspecific renal parenchymal disease. Bilateral simple appearing renal cysts.
--- NOTE | 2018-06-27 09:42 | Progress Note ---
Assessment and Plan Assessment and plan: --Severe hyponatremia sodium of 164 Management per nephrology, stat Vas-Cath placement And stat dialysis --Acute Renal failure: nephrology following Dialysis today --Sepsis/lactic acidosis/leukocytosis; Continue empiric antibiotics, follow cultures ID evaluation if needed --Hypertension; moderate control, continue current antihypertensives When necessary medications --Dyslipidemia; hold statin in view of rhabdomyolysis --Rhabdomyolysis CK 6427; hemodialysis, gentle hydration Closely monitor his CK levels --Bladder outlet obstruction; secondary to enlarged prostate Unable to pass Antoine catheter, urology consultation --Mild malnutrition/hypoalbuminemia; nutrition supplements and supportive care --Abdominal aortic aneurysm 6.5 cm impending rupture; on CT abdomen, Dr. Mazariegos discussed with vascular , advised to closely monitor medical management, no indication for patient transfer .Vascular following --DVT prophylaxis; heparin renal dose --Full CODE STATUS Patient is critically ill with guarded prognosis, Unable to contact family Consultations and recommendations noted, Continue current management Critical care time 32 minutes History Interval history: Patient seen and evaluated, medical records reviewed Patient is more alert today, in mild distress Vital signs noted Hospitalist Physical - Constitutional Vitals: Temp Pulse Resp BP Pulse Ox 97.7 F 109 H 30 H 128/60 95 06/27/18 04:00 06/27/18 04:30 06/27/18 04:30 06/27/18 04:30 06/27/18 04:30 General appearance: Present: severe distress, cachectic, disheveled - EENT Eyes: Present: PERRL, EOM intact - Neck Neck: Present: supple, normal ROM - Respiratory Respiratory effort: normal Respiratory: bilateral: diminished, rhonchi, negative: rales, wheezing - Cardiovascular Rhythm: regular Heart Sounds: Present: S1 & S2 - Extremities Extremities: no ischemia, abnormal (chronic changes) - Abdominal General gastrointestinal: soft, non-tender, non-distended, normal bowel sounds - Integumentary Integumentary: Present: clear, warm - Psychiatric Psychiatric: other (minimally communicative) - Neurologic Neurologic: moves all extremities Results - Labs CBC & Chem 7: 06/27/18 05:49 06/27/18 11:55 Labs: Laboratory Last Values WBC 31.0 K/mm3 (4.5-11.0) H 06/27/18 05:49 RBC 5.00 M/mm3 (3.65-5.03) 06/27/18 05:49 Hgb 14.5 gm/dl (11.8-15.2) 06/27/18 05:49 Hct 44.3 % (35.5-45.6) 06/27/18 05:49 MCV 89 fl (84-94) 06/27/18 05:49 MCH 29 pg (28-32) 06/27/18 05:49 MCHC 33 % (32-34) 06/27/18 05:49 RDW 15.1 % (13.2-15.2) 06/27/18 05:49 Plt Count 274 K/mm3 (140-440) 06/27/18 05:49 Add Manual Diff Complete 06/25/18 13:29 Total Counted 100 06/25/18 13:29 Seg Neutrophils % Quality Assurance Supervisor Trim 06/25/18 13:29 Seg Neuts % (Manual) 87.0 % (40.0-70.0) H 06/25/18 13:29 Band Neutrophils % 0 % 06/25/18 13:29 Lymphocytes % (Manual) 5.0 % (13.4-35.0) L 06/25/18 13:29 Reactive Lymphs % (Man) 0 % 06/25/18 13:29 Monocytes % (Manual) 8.0 % (0.0-7.3) H 06/25/18 13:29 Eosinophils % (Manual) 0 % (0.0-4.3) 06/25/18 13:29 Basophils % (Manual) 0 % (0.0-1.8) 06/25/18 13:29 Metamyelocytes % 0 % 06/25/18 13:29 Myelocytes % 0 % 06/25/18 13:29 Promyelocytes % 0 % 06/25/18 13:29 Blast Cells % 0 % 06/25/18 13:29 Nucleated RBC % Not Reportable 06/25/18 13:29 Seg Neutrophils # Man 23.2 K/mm3 (1.8-7.7) H 06/25/18 13:29 Band Neutrophils # 0.0 K/mm3 06/25/18 13:29 Lymphocytes # (Manual) 1.3 K/mm3 (1.2-5.4) 06/25/18 13:29 Abs React Lymphs (Man) 0.0 K/mm3 06/25/18 13:29 Monocytes # (Manual) 2.1 K/mm3 (0.0-0.8) H 06/25/18 13:29 Eosinophils # (Manual) 0.0 K/mm3 (0.0-0.4) 06/25/18 13:29 Basophils # (Manual) 0.0 K/mm3 (0.0-0.1) 06/25/18 13:29 Metamyelocytes # 0.0 K/mm3 06/25/18 13:29 Myelocytes # 0.0 K/mm3 06/25/18 13:29 Promyelocytes # 0.0 K/mm3 06/25/18 13:29 Blast Cells # 0.0 K/mm3 06/25/18 13:29 WBC Morphology Not Reportable 06/25/18 13:29 Hypersegmented Neuts Not Reportable 06/25/18 13:29 Hyposegmented Neuts Not Reportable 06/25/18 13:29 Hypogranular Neuts Not Reportable 06/25/18 13:29 Smudge Cells Not Reportable 06/25/18 13:29 Toxic Granulation Not Reportable 06/25/18 13:29 Toxic Vacuolation Not Reportable 06/25/18 13:29 Dohle Bodies Not Reportable 06/25/18 13:29 Pelger-Huet Anomaly Not Reportable 06/25/18 13:29 [place] Rods Not Reportable 06/25/18 13:29 Platelet Estimate Not Reportable 06/25/18 13:29 Clumped Platelets Not Reportable 06/25/18 13:29 Plt Clumps, EDTA Not Reportable 06/25/18 13:29 Large Platelets Not Reportable 06/25/18 13:29 Giant Platelets Not Reportable 06/25/18 13:29 Platelet Satelliting Not Reportable 06/25/18 13:29 Plt Morphology Comment Not Reportable 06/25/18 13:29 RBC Morphology Normal 06/25/18 13:29 Dimorphic RBCs Not Reportable 06/25/18 13:29 Polychromasia Not Reportable 06/25/18 13:29 Hypochromasia Not Reportable 06/25/18 13:29 Poikilocytosis Not Reportable 06/25/18 13:29 Anisocytosis Not Reportable 06/25/18 13:29 Microcytosis Not Reportable 06/25/18 13:29 Macrocytosis Not Reportable 06/25/18 13:29 Spherocytes Not Reportable 06/25/18 13:29 Pappenheimer Bodies Not Reportable 06/25/18 13:29 Sickle Cells Not Reportable 06/25/18 13:29 Target Cells Not Reportable 06/25/18 13:29 Tear Drop Cells Not Reportable 06/25/18 13:29 Ovalocytes Not Reportable 06/25/18 13:29 Helmet Cells Not Reportable 06/25/18 13:29 [place] Bodies Not Reportable 06/25/18 13:29 [place] Rings Not Reportable 06/25/18 13:29 [place] Cells Not Reportable 06/25/18 13:29 Bite Cells Not Reportable 06/25/18 13:29 Crenated Cell Not Reportable 06/25/18 13:29 Elliptocytes Not Reportable 06/25/18 13:29 Acanthocytes (Spur) Not Reportable 06/25/18 13:29 Rouleaux Not Reportable 06/25/18 13:29 Hemoglobin C Crystals Not Reportable 06/25/18 13:29 Schistocytes Not Reportable 06/25/18 13:29 Malaria parasites Not Reportable 06/25/18 13:29 Aniket Bodies Not Reportable 06/25/18 13:29 Hem Pathologist Commnt No 06/25/18 13:29 PT 18.8 Sec. (12.2-14.9) H 06/25/18 13:29 INR 1.47 (0.87-1.13) H 06/25/18 13:29 APTT 34.5 Sec. (24.2-36.6) 06/25/18 13:29 Sodium 164 mmol/L (137-145) H* D 06/27/18 05:49 Potassium 5.1 mmol/L (3.6-5.0) H 06/27/18 05:49 Chloride 111.9 mmol/L (98-107) H 06/27/18 05:49 Carbon Dioxide 16 mmol/L (22-30) L 06/27/18 05:49 Anion Gap 38 mmol/L 06/27/18 05:49 BUN 212 mg/dL (9-20) H 06/27/18 05:49 Creatinine 12.1 mg/dL (0.8-1.5) H 06/27/18 05:49 Estimated GFR 5 ml/min 06/27/18 05:49 BUN/Creatinine Ratio 18 % 06/27/18 05:49 Glucose 133 mg/dL (75-100) H 06/27/18 05:49 Lactic Acid 2.00 mmol/L (0.7-2.0) 06/26/18 06:08 Calcium 8.5 mg/dL (8.4-10.2) 06/27/18 05:49 Phosphorus 7.90 mg/dL (2.5-4.5) H 06/27/18 05:49 Total Bilirubin 3.20 mg/dL (0.1-1.2) H 06/25/18 13:13 AST 100 units/L (5-40) H 06/25/18 13:13 ALT 134 units/L (7-56) H 06/25/18 13:13 Alkaline Phosphatase 170 units/L (35-129) H 06/25/18 13:13 Ammonia 55.0 umol/L (25-60) 06/25/18 13:29 Total Creatine Kinase 6427 units/L (55-170) H 06/26/18 04:28 Troponin T 0.085 ng/mL (0.00-0.029) H 06/25/18 13:29 Total Protein 8.0 g/dL (6.3-8.2) 06/25/18 13:13 Albumin 3.3 g/dL (3.9-5) L 06/25/18 13:13 Albumin/Globulin Ratio 0.7 % 06/25/18 13:13 Triglycerides 167 mg/dL (2-149) H 06/25/18 13:29 Cholesterol 183 mg/dL (50-199) 06/25/18 13:29 LDL Cholesterol Direct 118 mg/dL (50-130) 06/25/18 13:29 HDL Cholesterol 30 mg/dL (40-59) L 06/25/18 13:29 Cholesterol/HDL Ratio 6.10 % 06/25/18 13:29 Prostate Specific Ag 41.28 ng/mL (0.00-4.00) H 06/25/18 18:11 TSH 1.640 mlU/mL (0.270-4.200) 06/25/18 13:29 Urine Color Red (Yellow) 06/26/18 21:20 Urine Turbidity Turbid (Clear) 06/26/18 21:20 Urine pH 5.0 (5.0-7.0) 06/26/18 21:20 Ur Specific [place] 1.019 (1.003-1.030) 06/26/18 21:20 Urine Protein 100 mg/dl mg/dL (Negative) 06/26/18 21:20 Urine Glucose (UA) 50 mg/dL (Negative) 06/26/18 21:20 Urine Ketones Neg mg/dL (Negative) 06/26/18 21:20 Urine Blood Lg (Negative) 06/26/18 21:20 Urine Nitrite Neg (Negative) 06/26/18 21:20 Urine Bilirubin Neg (Negative) 06/26/18 21:20 Urine Urobilinogen 2.0 mg/dL (<2.0) 06/26/18 21:20 Ur Leukocyte Esterase Mod (Negative) 06/26/18 21:20 Urine WBC (Auto) > 182.0 /HPF (0.0-6.0) H 06/26/18 21:20 Urine RBC (Auto) > 182.0 /HPF (0.0-6.0) 06/26/18 21:20 Urine Bacteria (Auto) 4+ /HPF (Negative) 06/26/18 21:20 Urine WBC Clumps 3+ /HPF 06/26/18 21:20 Ur Transition Epith Cell 25 /HPF 06/26/18 21:20 Urine Creatinine 126.2 mg/dL (0.1-20.0) H 06/26/18 21:20 Protein/Creatinin Ratio 6.58 06/26/18 21:20 Urine Sodium 97 mmol/L 06/26/18 21:20 Urine Urea Nitrogen 252 06/26/18 21:20 Urine Total Protein 830 mg/dL (5-11.8) H 06/26/18 21:20 Urine Opiates Screen Presumptive negative 06/26/18 21:20 Urine Methadone Screen Presumptive negative 06/26/18 21:20 Ur Barbiturates Screen Presumptive negative 06/26/18 21:20 Ur Phencyclidine Scrn Presumptive negative 06/26/18 21:20 Ur Amphetamines Screen Presumptive negative 06/26/18 21:20 U Benzodiazepines Scrn Presumptive negative 06/26/18 21:20 Urine Cocaine Screen Presumptive negative 06/26/18 21:20 U Marijuana (THC) Screen Presumptive negative 06/26/18 21:20 Drugs of Abuse Note Disclamer 06/26/18 21:20 Plasma/Serum Alcohol < 0.01 % (0-0.07) 06/25/18 13:29 Hepatitis A IgM Ab Non-reactive (NonReactive) 06/25/18 16:45 Hep Bs Antigen Non-reactive (Negative) 06/25/18 16:45 Hep B Core IgM Ab Non-reactive (NonReactive) 06/25/18 16:45 Hepatitis C Antibody Non-reactive (NonReactive) 06/25/18 16:45 Active Medications - Current Medications Current Medications: Generic Name Dose Route Start Last Admin Trade Name Freq PRN Reason Stop Dose Admin Heparin Sodium (Porcine) 5,000 unit 06/25/18 22:00 06/26/18 23:27 Heparin SUB-Q 5,000 unit Q12HR KATIE Administration Piperacillin Sod/Tazobactam Sod 2.25 gm in 50 mls @ 100 mls/hr 06/26/18 14:00 06/27/18 06:34 Zosyn/Ns 2.25 Gm/50ml IV 100 mls/hr Q8HR KATIE Administration Sodium Bicarbonate 75 meq/ 1,075 mls @ 125 mls/hr 06/26/18 12:30 06/26/18 23:33 Sodium Chloride IV 125 mls/hr DIRECT KATIE Administration Sodium Chloride 10 ml 06/25/18 22:00 06/26/18 23:00 Sodium Chloride Flush Syringe 10 Ml IV 10 ml BID KATIE Administration Sodium Chloride 10 ml 06/25/18 16:47 Sodium Chloride Flush Syringe 10 Ml IV PRN PRN LINE FLUSH Tamsulosin HCl 0.4 mg 06/26/18 10:00 06/26/18 10:14 Flomax PO Not Given QDAY KATIE
[2018-06-27 09:46] LABS: Total Cells Counted 100
[2018-06-27 09:47] LABS: Anisocytosis Few; Basophils % (Manual) 0 % (0.0-1.8); Eosinophils % (Manual) 0 % (0.0-4.3); Giant Platelets Rare; Platelet Estimate Consistent w Auto
[2018-06-27] MEDS ORDERED: SODIUM BICARBONATE 50 MEQ in D5W 1,000 ML IV ONE (11:00)
[2018-06-27] MEDS ORDERED: XYLOCAINE 2% UROJET ONE (11:22)
[2018-06-27] MEDS ORDERED: NACL 0.9% 1000 ML ONE (11:22)
--- NOTE | 2018-06-27 11:26 | Progress Note ---
Assessment and Plan Severe renal failure, likely ATN from volume depletion, sepsis and rhabdo vs prerenal azotemia. AG acidosis secondary to renal failure and lactic acidosis Metabolic encephalopathy secondary to sepsis but cannot r/o uremia, baseline is unknown Sepsis Rhabdomyolysis Elevated LFTs - Renal function reviewed- Serum creatinine 12.1 today with a BUN level of 121. - Given worsening renal failure and multiple electrolyte abnormalities, patient will need dialysis initiation - Consulted Vascular Surgeon Dr. Reagan for vasc cath placement- he will see patient - Change IVF to D5W in 150 meq on Sodium Bicarbonate@ 125 ml/hr - Enlarged prostate- Dr. Vo, Urology onboard - Renal US- Renal disease. Simple cysts bilaterally. No Hydronephrosis - Urine studies revealed proteinuria - Ordered GN work-up - Renally dose medications - Strict I&O monitoring - Obtain daily weights - Monitor renal function closely Subjective Date of service: 06/27/18 Principal diagnosis: Severe Renal Failure, AMS Interval history: Patient seen in [facility]. Communicates with moans. Objective - Vital Signs Vital signs: Vital Signs - 12hr 06/26/18 06/27/18 06/27/18 23:31 00:00 00:01 Temperature 97.8 F Pulse Rate 108 H 100 H Respiratory 34 H 26 H Rate Blood Pressure 139/82 139/82 O2 Sat by Pulse 100 Oximetry 06/27/18 06/27/18 06/27/18 00:31 01:01 02:01 Temperature Pulse Rate 108 H 89 105 H Respiratory 32 H 31 H 31 H Rate Blood Pressure 139/82 118/72 134/70 O2 Sat by Pulse 97 98 Oximetry 06/27/18 06/27/18 06/27/18 02:31 03:01 03:31 Temperature Pulse Rate 107 H 106 H 109 H Respiratory 32 H 29 H 34 H Rate Blood Pressure 134/70 117/66 117/66 O2 Sat by Pulse 94 Oximetry 06/27/18 06/27/18 06/27/18 04:00 04:01 04:30 Temperature 97.7 F Pulse Rate 110 H 109 H Respiratory 28 H 30 H Rate Blood Pressure 117/66 128/60 O2 Sat by Pulse 97 95 Oximetry - General Appearance General appearance: well-developed, appears stated age, fatigue EENT: ATNC, PERRL Neck: no JVD, supple Respiratory: Present: Decreased Breath Sounds Cardiology: regular, S1S2 Gastrointestinal: normoactive bowel sounds Integumentary: warm and dry Neurologic: other (Awake) Musculoskeletal: other (No edema) - Lab 06/27/18 05:49 06/27/18 11:55 Most recent lab results Calcium 8.5 mg/dL (8.4-10.2) 06/27/18 05:49 Phosphorus 7.90 mg/dL (2.5-4.5) H 06/27/18 05:49 Urine Creatinine 126.2 mg/dL (0.1-20.0) H 06/26/18 21:20 Urine Sodium 97 mmol/L 06/26/18 21:20 Urine Total Protein 830 mg/dL (5-11.8) H 06/26/18 21:20 Medications & Allergies - Medications Allergies/Adverse Reactions: Allergies No Known Allergies Allergy (Unverified 06/25/18 12:55) Home Medications: Home Medications Medication Instructions Recorded Confirmed Last Taken Type Amlodipine Besylate/Benazepril 1 each PO DAILY 06/25/18 06/25/18 Unknown History [Amlodipine-Benazepril 5-20 mg] Aspirin [Adult Aspirin Regimen] 81 mg PO DAILY 06/25/18 06/25/18 Unknown History AtorvaSTATin [Lipitor] 40 mg PO QHS 06/25/18 06/25/18 Unknown History Losartan [Cozaar] 100 mg PO QDAY 06/25/18 06/25/18 Unknown History Tamsulosin [Flomax] 0.4 mg PO QDAY 06/25/18 06/25/18 Unknown History Active Medications: Generic Name Dose Route Start Last Admin Trade Name Freq PRN Reason Stop Dose Admin Heparin Sodium (Porcine) 5,000 unit 06/25/18 22:00 06/26/18 23:27 Heparin SUB-Q 5,000 unit Q12HR KATIE Administration Piperacillin Sod/Tazobactam Sod 2.25 gm in 50 mls @ 100 mls/hr 06/26/18 14:00 06/27/18 06:34 Zosyn/Ns 2.25 Gm/50ml IV 100 mls/hr Q8HR KATIE Administration Sodium Bicarbonate 50 meq/ 1,050 mls @ 125 mls/hr 06/27/18 11:00 Dextrose IV 06/27/18 19:23 DIRECT ONE Sodium Chloride 10 ml 06/25/18 22:00 06/26/18 23:00 Sodium Chloride Flush Syringe 10 Ml IV 10 ml BID KATIE Administration Sodium Chloride 10 ml 06/25/18 16:47 Sodium Chloride Flush Syringe 10 Ml IV PRN PRN LINE FLUSH Tamsulosin HCl 0.4 mg 06/26/18 10:00 06/26/18 10:14 Flomax PO Not Given QDAY KATIE
[2018-06-27] MEDS ORDERED: HEPARIN ONE ×2 (11:27→23:08)
[2018-06-27] MEDS: SODIUM CHLORIDE FLUSH SYRINGE 10 ML IV SCH ×2 (11:43→22:37)
[2018-06-27] MEDS: HEPARIN SUB-Q SCH ×2 (11:43→23:08)
[2018-06-27] MEDS: FLOMAX PO SCH (11:56)
[2018-06-27] MEDS ORDERED: SODIUM BICARBONATE FEEDTUBE PRN (15:45)
[2018-06-27] MEDS ORDERED: SIMPLE SYRUP FEEDTUBE PRN ×2 (15:45)
[2018-06-27] MEDS ORDERED: PANCREAZE DR 10,500 UNIT FEEDTUBE PRN (15:45)
[2018-06-27] MEDS ORDERED: HEPARIN 10,000 UNITS/10 ML ONE (17:18)
--- NOTE | 2018-06-27 17:26 | Post Operative Note ---
Pre-op diagnosis: Acute renal failure Post-op diagnosis: same Findings: Internal jugular vein small suspect pt is dehydrated. Pt Head lowered for procedure Procedure: 1. U/sg puncture of RIJ vein 2. Insertion of 6in pre-curved med-comp Vas cath RIJ Anesthesia: local Surgeon: GANESH DEGROOT Estimated blood loss: minimal Pathology: none Condition: stable Disposition: no change (CXR ordered and pending)
--- NOTE | 2018-06-27 19:07 | XRay Report ---
PROCEDURE: XR CHEST 1V AP TECHNIQUE: Single AP view of the chest HISTORY: S/p RIJ VC COMPARISONS: 06/25/2018 FINDINGS: There has been placement of a large bore right central venous catheter, with the tip at the cavoatria l junction. No pneumothorax is seen. No pulmonary infiltrates. No effusion. Cardiac silhouette is sta ble. IMPRESSION: Large bore right central venous catheter tip is at the cavoatrial junction This document is electronically signed by Jessie Spence MD., June 27 2018 07:05:11 PM ET
[2018-06-27] MEDS ORDERED: D5W 500 ML IV SCH (21:00)
[2018-06-27] MEDS ORDERED: LEVOPHED DRIP 4 MG/NS 250 ML 4 MG/250 ML BAG IV ONE (21:41)
[2018-06-27] MEDS: LEVOPHED DRIP 4 MG/NS 250 ML 4 MG/250 ML BAG IV SCH (21:48)
[2018-06-27] MEDS ORDERED: D5W 1,000 ML IV ONE (23:33)
--- NOTE | 2018-06-28 | XRay Report ---
PROCEDURE: XR ABDOMEN 1V AP TECHNIQUE: A portable supine view of the abdomen was obtained. HISTORY: Verify Feeding tube placement COMPARISONS: None FINDINGS: The tip of the Dobbhoff catheter is at the GE junction. It needs be advanced considerably into the st omach. The bowel gas pattern is normal. Free air is not seen. The bones and soft tissues do not show any acute changes. IMPRESSION: Tip of the Dobbhoff catheter is at the GE junction. It needs be advanced considerably into the stomac h.. This document is electronically signed by Miguel Abreu MD., June 27 2018 11:58:42 PM ET
[2018-06-28] MEDS: ZOSYN/NS 2.25 GM/50ML 2.25 GM/50 ML BAG IV SCH (00:15)
[2018-06-28] MEDS: D5W IV SCH ×4 (00:40→23:42)
[2018-06-28] MEDS: ZOSYN IV SCH ×4 (00:40→23:42)
--- NOTE | 2018-06-28 01:52 | XRay Report ---
PROCEDURE: XR ABDOMEN 1V AP TECHNIQUE: Abdominal radiograph, single view. HISTORY: Verify feeding tube placement COMPARISONS: None . FINDINGS: Bowel gas pattern: Nonobstructive . Masses or calcifications: None . Bony structures: No significant abnormality . Other: The feeding tube ends in the mid stomach . IMPRESSION: The feeding tube ends in the mid stomach. This document is electronically signed by Melinda Zamora DO., June 28 2018 01:49:58 AM ET
[2018-06-28] MEDS ORDERED: LEVOPHED DRIP 4 MG/NS 250 ML 4 MG/250 ML BAG IV ONE ×4 (02:38→12:40)
[2018-06-28] MEDS: LEVOPHED DRIP 4 MG/NS 250 ML 4 MG/250 ML BAG IV SCH ×5 (03:13→21:45)
[2018-06-28 03:52] LABS: Creatine Kinase MB 12.7 ng/mL (0.0-4.0)
[2018-06-28 04:39] LABS: Hematocrit 44.6 % (35.5-45.6); Hemoglobin 14.7 gm/dl (11.8-15.2); Mean Corpuscular HGB Conc 33 % (32-34); Mean Corpuscular Volume 88 fl (84-94); Red Blood Count 5.06 M/mm3 (3.65-5.03); Red Cell Distribution Width 14.8 % (13.2-15.2)
[2018-06-28 04:40] LABS: Platelet Count 263 K/mm3 (140-440)
[2018-06-28 05:26] LABS: Calcium 8.1 mg/dL (8.4-10.2)
[2018-06-28 06:36] LABS: Anisocytosis 1+; Band Neutrophils # (Manual) 3.8 K/mm3; Basophils % (Manual) 0 % (0.0-1.8); Eosinophils % (Manual) 0 % (0.0-4.3); Giant Platelets Few; Target Cells Few; Total Cells Counted 100
--- NOTE | 2018-06-28 11:34 | Progress Note ---
Assessment and Plan Severe renal failure, likely ATN from volume depletion, sepsis and rhabdo vs prerenal azotemia. AG acidosis secondary to renal failure and lactic acidosis Metabolic encephalopathy secondary to sepsis but cannot r/o uremia, baseline is unknown Sepsis Rhabdomyolysis Elevated LFTs - Renal function reviewed. S/P first HD yesterday for clearance mainly. HD again today for clearance. - S/P vasc cath placement for hemodialysis yesterday by Dr. Reagan - Enlarged prostate- Dr. Vo, Urology onboard - Renal US- Renal disease. Simple cysts bilaterally. No Hydronephrosis - Urine studies revealed proteinuria - Ordered GN work-up - HIV and Hep-negative - Renally dose medications - Strict I&O monitoring - Obtain daily weights - Monitor renal function closely - Assess dialysis needs daily Subjective Date of service: 06/28/18 Principal diagnosis: Severe Renal Failure, AMS Interval history: Patient seen in E.R. Sleeping and in restraints. Dobhoff tube in place. Objective - Vital Signs Vital signs: Vital Signs - 12hr 06/28/18 06/28/18 06/28/18 00:01 00:13 01:01 Pulse Rate 107 H 101 H 108 H Respiratory 25 H 22 26 H Rate Blood Pressure 106/64 107/52 82/58 O2 Sat by Pulse 97 97 96 Oximetry 06/28/18 06/28/18 06/28/18 02:00 03:01 04:01 Pulse Rate 106 H 109 H Respiratory 28 H 22 28 H Rate Blood Pressure 111/60 126/43 O2 Sat by Pulse 97 96 Oximetry 06/28/18 06/28/18 06/28/18 05:01 06:15 06:31 Pulse Rate 99 H 103 H 101 H Respiratory 24 23 21 Rate Blood Pressure 106/60 126/60 142/79 O2 Sat by Pulse 99 98 97 Oximetry 06/28/18 06/28/18 06/28/18 06:45 07:01 07:15 Pulse Rate 104 H 101 H 91 H Respiratory 25 H 23 22 Rate Blood Pressure 112/56 114/66 112/67 O2 Sat by Pulse 93 98 95 Oximetry 06/28/18 06/28/18 06/28/18 07:31 07:45 08:01 Pulse Rate 97 H 91 H 93 H Respiratory 24 19 20 Rate Blood Pressure 135/86 127/100 116/56 O2 Sat by Pulse 95 96 95 Oximetry 06/28/18 06/28/18 06/28/18 08:15 08:31 08:45 Pulse Rate 95 H 92 H 101 H Respiratory 21 18 22 Rate Blood Pressure 134/56 109/51 128/82 O2 Sat by Pulse 97 98 98 Oximetry 06/28/18 06/28/18 06/28/18 09:01 09:15 09:31 Pulse Rate 102 H 105 H 103 H Respiratory 15 23 17 Rate Blood Pressure 114/61 116/64 105/59 O2 Sat by Pulse 94 91 97 Oximetry 06/28/18 06/28/18 06/28/18 09:45 10:01 10:15 Pulse Rate 94 H 101 H 95 H Respiratory 19 20 19 Rate Blood Pressure 113/69 110/65 105/59 O2 Sat by Pulse 97 99 98 Oximetry 06/28/18 06/28/18 06/28/18 10:30 10:45 11:01 Pulse Rate 114 H 100 H 97 H Respiratory 12 23 20 Rate Blood Pressure 105/55 108/50 109/55 O2 Sat by Pulse 96 95 95 Oximetry - General Appearance General appearance: well-developed, chronically ill EENT: ATNC Neck: no JVD, supple Respiratory: Present: Decreased Breath Sounds Cardiology: tachycardia, S1S2 Gastrointestinal: normoactive bowel sounds Integumentary: warm and dry Neurologic: other (Sleeping, moans when awake) Musculoskeletal: other (No edema) - Lab 06/28/18 04:20 06/28/18 10:23 Most recent lab results Calcium 8.1 mg/dL (8.4-10.2) L 06/28/18 03:18 Phosphorus 6.30 mg/dL (2.5-4.5) H D 06/28/18 03:18 Urine Creatinine 126.2 mg/dL (0.1-20.0) H 06/26/18 21:20 Urine Sodium 97 mmol/L 06/26/18 21:20 Urine Total Protein 830 mg/dL (5-11.8) H 06/26/18 21:20 Medications & Allergies - Medications Allergies/Adverse Reactions: Allergies No Known Allergies Allergy (Unverified 06/25/18 12:55) Home Medications: Home Medications Medication Instructions Recorded Confirmed Last Taken Type Amlodipine Besylate/Benazepril 1 each PO DAILY 06/25/18 06/25/18 Unknown History [Amlodipine-Benazepril 5-20 mg] Aspirin [Adult Aspirin Regimen] 81 mg PO DAILY 06/25/18 06/25/18 Unknown History AtorvaSTATin [Lipitor] 40 mg PO QHS 06/25/18 06/25/18 Unknown History Losartan [Cozaar] 100 mg PO QDAY 06/25/18 06/25/18 Unknown History Tamsulosin [Flomax] 0.4 mg PO QDAY 06/25/18 06/25/18 Unknown History Active Medications: Generic Name Dose Route Start Last Admin Trade Name Freq PRN Reason Stop Dose Admin Lipase/Protease/Amylase 1 each 06/27/18 15:[address] 10,500 Unit FEEDTUBE PRN PRN For Clogged Feeding Tube Heparin Sodium (Porcine) 5,000 unit 06/25/18 22:00 06/27/18 23:08 Heparin SUB-Q 5,000 unit Q12HR KATIE Administration Dextrose 500 mls @ 0 mls/hr 06/27/18 21:00 06/27/18 20:55 D5w IV 999 mls/hr DIRECT KATIE Administration As Directed Norepinephrine 4 mg in 250 mls @ 7.5 mls/hr 06/27/18 22:00 06/28/18 11:08 Levophed Drip 4 Mg/Ns 250 Ml IV 10 mcg/min TITR KATIE 37.5 mls/hr Titration Protocol 2 MCG/MIN Piperacillin Sod/Tazobactam 50 mls @ 50 mls/30 min 06/27/18 23:00 06/28/18 06:53 Sod 2.25 gm/ Dextrose IV 50 mls/30 min Q8H KATIE Administration Simple Syrup 15 ml 06/27/18 15:45 Simple Syrup FEEDTUBE PRN PRN Hypoglycemia Simple Syrup 30 ml 06/27/18 15:45 Simple Syrup FEEDTUBE PRN PRN Hypoglycemia Sodium Bicarbonate 325 mg 06/27/18 15:45 Sodium Bicarbonate FEEDTUBE PRN PRN For Clogged Feeding Tube Sodium Chloride 10 ml 06/25/18 22:00 06/27/18 22:37 Sodium Chloride Flush Syringe 10 Ml IV 10 ml BID KATIE Administration Sodium Chloride 10 ml 06/25/18 16:47 Sodium Chloride Flush Syringe 10 Ml IV PRN PRN LINE FLUSH Tamsulosin HCl 0.4 mg 06/26/18 10:00 06/27/18 11:56 Flomax PO Not Given QDAY KATIE
[2018-06-28] MEDS: MORPHINE IV PRN ×2 (11:50→19:25)
[2018-06-28] MEDS ORDERED: MORPHINE ONE (11:51)
--- NOTE | 2018-06-28 12:09 | Event Note ---
Date: 06/28/18 Pt awake, denies post-op complaint. RIJ VC in place without erythema or drainage. VC reportedly functioning without issue.
[2018-06-28] MEDS: HEPARIN SUB-Q SCH ×2 (12:15→21:17)
[2018-06-28] MEDS ORDERED: HEPARIN ONE (12:26)
[2018-06-28] MEDS ORDERED: SODIUM BICARBONATE FEEDTUBE PRN (13:47)
[2018-06-28] MEDS ORDERED: SIMPLE SYRUP FEEDTUBE PRN ×2 (13:47)
[2018-06-28] MEDS ORDERED: PANCREAZE DR 10,500 UNIT FEEDTUBE PRN (13:47)
--- NOTE | 2018-06-28 17:25 | Progress Note ---
Assessment and Plan Assessment and plan: --Acute Renal failure/hypernatremia: nephrology initiated hemodialysis, sodium levels improved Hemodialysis per schedule --Sepsis/lactic acidosis/leukocytosis; Continue empiric antibiotics, cultures negative to date ID evaluation if needed --Septic shock; continue Levothroid per protocol --Dyslipidemia; hold statin in view of rhabdomyolysis --Rhabdomyolysis CK 6427; hemodialysis, gentle hydration CK improved to 2987 --Bladder outlet obstruction; secondary to enlarged prostate Unable to pass Antoine catheter, urology evaluated the patient Continuous Antoine catheterization --Moderate malnutrition/hypoalbuminemia; nutrition supplements and supportive care --Abdominal aortic aneurysm 6.5 cm impending rupture; on CT abdomen, Dr. Mazariegos discussed with vascular , advised to closely monitor medical management, no indication for patient transfer .Vascular following --DVT prophylaxis; heparin renal dose --Full CODE STATUS Patient is critically ill with guarded prognosis, Unable to contact family Consultations and recommendations noted, Continue current management Critical care time 35 minutes History Interval history: Patient seen and examined in ER awaiting ICU bed assignment Patient remains critically ill, cachectic, in mild distress Remains on Levophed Vital signs noted Hospitalist Physical - Constitutional Vitals: Temp Pulse Resp BP Pulse Ox 98.8 F 92 H 18 94/51 95 06/28/18 16:00 06/28/18 15:01 06/28/18 15:01 06/28/18 15:01 06/28/18 15:01 General appearance: Present: mild distress, cachectic, disheveled - EENT Eyes: Present: PERRL, EOM intact - Neck Neck: Present: supple, normal ROM - Respiratory Respiratory effort: normal Respiratory: bilateral: diminished, rhonchi, negative: rales, wheezing - Cardiovascular Rhythm: regular Heart Sounds: Present: S1 & S2 - Extremities Extremities: no ischemia, No edema - Abdominal General gastrointestinal: soft, non-tender, non-distended, normal bowel sounds - Integumentary Integumentary: Present: clear, warm - Psychiatric Psychiatric: other (minimally communicative) - Neurologic Neurologic: other (minimally communicative) Results - Labs CBC & Chem 7: 06/29/18 07:36 06/29/18 07:36 Labs: Laboratory Last Values WBC 29.0 K/mm3 (4.5-11.0) H 06/28/18 04:20 RBC 5.06 M/mm3 (3.65-5.03) H 06/28/18 04:20 Hgb 14.7 gm/dl (11.8-15.2) 06/28/18 04:20 Hct 44.6 % (35.5-45.6) 06/28/18 04:20 MCV 88 fl (84-94) 06/28/18 04:20 MCH 29 pg (28-32) 06/28/18 04:20 MCHC 33 % (32-34) 06/28/18 04:20 RDW 14.8 % (13.2-15.2) 06/28/18 04:20 Plt Count 263 K/mm3 (140-440) 06/28/18 04:20 Add Manual Diff Complete 06/28/18 04:20 Total Counted 100 06/28/18 04:20 Seg Neutrophils % Jewelry Technician 06/25/18 13:29 Seg Neuts % (Manual) 74.0 % (40.0-70.0) H 06/28/18 04:20 Band Neutrophils % 13.0 % 06/28/18 04:20 Lymphocytes % (Manual) 1.0 % (13.4-35.0) L 06/28/18 04:20 Reactive Lymphs % (Man) 0 % 06/28/18 04:20 Monocytes % (Manual) 12.0 % (0.0-7.3) H 06/28/18 04:20 Eosinophils % (Manual) 0 % (0.0-4.3) 06/28/18 04:20 Basophils % (Manual) 0 % (0.0-1.8) 06/28/18 04:20 Metamyelocytes % 0 % 06/28/18 04:20 Myelocytes % 0 % 06/28/18 04:20 Promyelocytes % 0 % 06/28/18 04:20 Blast Cells % 0 % 06/28/18 04:20 Nucleated RBC % 5.0 % (0.0-0.9) H 06/28/18 04:20 Seg Neutrophils # Man 21.5 K/mm3 (1.8-7.7) H 06/28/18 04:20 Band Neutrophils # 3.8 K/mm3 06/28/18 04:20 Lymphocytes # (Manual) 0.3 K/mm3 (1.2-5.4) L 06/28/18 04:20 Abs React Lymphs (Man) 0.0 K/mm3 06/28/18 04:20 Monocytes # (Manual) 3.5 K/mm3 (0.0-0.8) H 06/28/18 04:20 Eosinophils # (Manual) 0.0 K/mm3 (0.0-0.4) 06/28/18 04:20 Basophils # (Manual) 0.0 K/mm3 (0.0-0.1) 06/28/18 04:20 Metamyelocytes # 0.0 K/mm3 06/28/18 04:20 Myelocytes # 0.0 K/mm3 06/28/18 04:20 Promyelocytes # 0.0 K/mm3 06/28/18 04:20 Blast Cells # 0.0 K/mm3 06/28/18 04:20 WBC Morphology Not Reportable 06/28/18 04:20 Hypersegmented Neuts Not Reportable 06/28/18 04:20 Hyposegmented Neuts Not Reportable 06/28/18 04:20 Hypogranular Neuts Not Reportable 06/28/18 04:20 Smudge Cells Not Reportable 06/28/18 04:20 Toxic Granulation Not Reportable 06/28/18 04:20 Toxic Vacuolation Not Reportable 06/28/18 04:20 Dohle Bodies Not Reportable 06/28/18 04:20 Pelger-Huet Anomaly Not Reportable 06/28/18 04:20 Plama Rods Not Reportable 06/28/18 04:20 Platelet Estimate Appears normal 06/28/18 04:20 Clumped Platelets Not Reportable 06/28/18 04:20 Plt Clumps, EDTA Not Reportable 06/28/18 04:20 Large Platelets Not Reportable 06/28/18 04:20 Giant Platelets Few 06/28/18 04:20 Platelet Satelliting Not Reportable 06/28/18 04:20 Plt Morphology Comment Not Reportable 06/28/18 04:20 RBC Morphology Not Reportable 06/28/18 04:20 Dimorphic RBCs Not Reportable 06/28/18 04:20 Polychromasia Not Reportable 06/28/18 04:20 Hypochromasia Not Reportable 06/28/18 04:20 Poikilocytosis Not Reportable 06/28/18 04:20 Anisocytosis 1+ 06/28/18 04:20 Microcytosis Not Reportable 06/28/18 04:20 Macrocytosis Not Reportable 06/28/18 04:20 Spherocytes Not Reportable 06/28/18 04:20 Pappenheimer Bodies Not Reportable 06/28/18 04:20 Sickle Cells Not Reportable 06/28/18 04:20 Target Cells Few 06/28/18 04:20 Tear Drop Cells Not Reportable 06/28/18 04:20 Ovalocytes Not Reportable 06/28/18 04:20 Helmet Cells Not Reportable 06/28/18 04:20 Quispe-[place] Bodies Not Reportable 06/28/18 04:20 [place] Rings Not Reportable 06/28/18 04:20 Narciso Cells Not Reportable 06/28/18 04:20 Bite Cells Not Reportable 06/28/18 04:20 Crenated Cell Not Reportable 06/28/18 04:20 Elliptocytes Not Reportable 06/28/18 04:20 Acanthocytes (Spur) Not Reportable 06/28/18 04:20 Rouleaux Not Reportable 06/28/18 04:20 Hemoglobin C Crystals Not Reportable 06/28/18 04:20 Schistocytes Not Reportable 06/28/18 04:20 Malaria parasites Not Reportable 06/28/18 04:20 Aniket Bodies Not Reportable 06/28/18 04:20 Hem Pathologist Commnt No 06/28/18 04:20 PT 18.8 Sec. (12.2-14.9) H 06/25/18 13:29 INR 1.47 (0.87-1.13) H 06/25/18 13:29 APTT 34.5 Sec. (24.2-36.6) 06/25/18 13:29 Sodium 146 mmol/L (137-145) H 06/28/18 10:23 Potassium 3.8 mmol/L (3.6-5.0) D 06/28/18 03:18 Chloride 99.8 mmol/L (98-107) 06/28/18 03:18 Carbon Dioxide 19 mmol/L (22-30) L 06/28/18 03:18 Anion Gap 30 mmol/L 06/28/18 03:18 BUN 145 mg/dL (9-20) H 06/28/18 03:18 Creatinine 10.0 mg/dL (0.8-1.5) H 06/28/18 03:18 Estimated GFR 6 ml/min 06/28/18 03:18 BUN/Creatinine Ratio 15 % 06/28/18 03:18 Glucose 168 mg/dL (75-100) H 06/28/18 03:18 POC Glucose 123 (70-105) H 06/27/18 20:55 Lactic Acid 2.00 mmol/L (0.7-2.0) 06/26/18 06:08 Calcium 8.1 mg/dL (8.4-10.2) L 06/28/18 03:18 Phosphorus 6.30 mg/dL (2.5-4.5) H D 06/28/18 03:18 Total Bilirubin 3.20 mg/dL (0.1-1.2) H 06/25/18 13:13 AST 100 units/L (5-40) H 06/25/18 13:13 ALT 134 units/L (7-56) H 06/25/18 13:13 Alkaline Phosphatase 170 units/L (35-129) H 06/25/18 13:13 Ammonia 55.0 umol/L (25-60) 06/25/18 13:29 Total Creatine Kinase 2987 units/L (55-170) H 06/28/18 03:18 CK-MB (CK-2) 12.7 ng/mL (0.0-4.0) H 06/28/18 03:18 CK-MB (CK-2) Rel Index 0.4 (0-4) 06/28/18 03:18 Troponin T 0.085 ng/mL (0.00-0.029) H 06/25/18 13:29 Total Protein 8.0 g/dL (6.3-8.2) 06/25/18 13:13 Albumin 3.3 g/dL (3.9-5) L 06/25/18 13:13 Albumin/Globulin Ratio 0.7 % 06/25/18 13:13 Triglycerides 167 mg/dL (2-149) H 06/25/18 13:29 Cholesterol 183 mg/dL (50-199) 06/25/18 13:29 LDL Cholesterol Direct 118 mg/dL (50-130) 06/25/18 13:29 HDL Cholesterol 30 mg/dL (40-59) L 06/25/18 13:29 Cholesterol/HDL Ratio 6.10 % 06/25/18 13:29 Prostate Specific Ag 41.28 ng/mL (0.00-4.00) H 06/25/18 18:11 TSH 1.640 mlU/mL (0.270-4.200) 06/25/18 13:29 Urine Color Red (Yellow) 06/26/18 21:20 Urine Turbidity Turbid (Clear) 06/26/18 21:20 Urine pH 5.0 (5.0-7.0) 06/26/18 21:20 Ur Specific [place] 1.019 (1.003-1.030) 06/26/18 21:20 Urine Protein 100 mg/dl mg/dL (Negative) 06/26/18 21:20 Urine Glucose (UA) 50 mg/dL (Negative) 06/26/18 21:20 Urine Ketones Neg mg/dL (Negative) 06/26/18 21:20 Urine Blood Lg (Negative) 06/26/18 21:20 Urine Nitrite Neg (Negative) 06/26/18 21:20 Urine Bilirubin Neg (Negative) 06/26/18 21:20 Urine Urobilinogen 2.0 mg/dL (<2.0) 06/26/18 21:20 Ur Leukocyte Esterase Mod (Negative) 06/26/18 21:20 Urine WBC (Auto) > 182.0 /HPF (0.0-6.0) H 06/26/18 21:20 Urine RBC (Auto) > 182.0 /HPF (0.0-6.0) 06/26/18 21:20 Urine Bacteria (Auto) 4+ /HPF (Negative) 06/26/18 21:20 Urine WBC Clumps 3+ /HPF 06/26/18 21:20 Ur Transition Epith Cell 25 /HPF 06/26/18 21:20 Urine Creatinine 126.2 mg/dL (0.1-20.0) H 06/26/18 21:20 Protein/Creatinin Ratio 6.58 06/26/18 21:20 Urine Sodium 97 mmol/L 06/26/18 21:20 Urine Urea Nitrogen 252 06/26/18 21:20 Urine Total Protein 830 mg/dL (5-11.8) H 06/26/18 21:20 Urine Opiates Screen Presumptive negative 06/26/18 21:20 Urine Methadone Screen Presumptive negative 06/26/18 21:20 Ur Barbiturates Screen Presumptive negative 06/26/18 21:20 Ur Phencyclidine Scrn Presumptive negative 06/26/18 21:20 Ur Amphetamines Screen Presumptive negative 06/26/18 21:20 U Benzodiazepines Scrn Presumptive negative 06/26/18 21:20 Urine Cocaine Screen Presumptive negative 06/26/18 21:20 U Marijuana (THC) Screen Presumptive negative 06/26/18 21:20 Drugs of Abuse Note Disclamer 06/26/18 21:20 Plasma/Serum Alcohol < 0.01 % (0-0.07) 06/25/18 13:29 Hepatitis A IgM Ab Non-reactive (NonReactive) 06/25/18 16:45 Hep Bs Antigen Non-reactive (Negative) 06/25/18 16:45 Hep B Core IgM Ab Non-reactive (NonReactive) 06/25/18 16:45 Hepatitis C Antibody Non-reactive (NonReactive) 06/25/18 16:45 HIV 1&2 Antibody Rapid Non react (Non React) 06/27/18 13:44 HIV P24 Antigen Non react (Non React) 06/27/18 13:44 Active Medications - Current Medications Current Medications: Generic Name Dose Route Start Last Admin Trade Name Freq PRN Reason Stop Dose Admin Lipase/Protease/Amylase 1 each 06/28/18 13:[address] 10,500 Unit FEEDTUBE PRN PRN For Clogged Feeding Tube Heparin Sodium (Porcine) 5,000 unit 06/25/18 22:00 06/28/18 12:15 Heparin SUB-Q 5,000 unit Q12HR KATIE Administration Dextrose 500 mls @ 0 mls/hr 06/27/18 21:00 06/27/18 20:55 D5w IV 999 mls/hr DIRECT KATIE Administration As Directed Norepinephrine 4 mg in 250 mls @ 7.5 mls/hr 06/27/18 22:00 06/28/18 12:42 Levophed Drip 4 Mg/Ns 250 Ml IV 12 mcg/min TITR KATIE 45 mls/hr Administration Protocol 2 MCG/MIN Piperacillin Sod/Tazobactam 50 mls @ 50 mls/30 min 06/27/18 23:00 04/11/19 06:53 Sod 2.25 gm/ Dextrose IV 50 mls/30 min Q8H KATIE Administration Morphine Sulfate 1 mg 06/28/18 11:46 06/28/18 11:50 Morphine IV 1 mg Q6H PRN Administration Chest Pain unrelieved by NTG Simple Syrup 15 ml 06/28/18 13:47 Simple Syrup FEEDTUBE PRN PRN Hypoglycemia Simple Syrup 30 ml 06/28/18 13:47 Simple Syrup FEEDTUBE PRN PRN Hypoglycemia Sodium Bicarbonate 325 mg 06/28/18 13:47 Sodium Bicarbonate FEEDTUBE PRN PRN For Clogged Feeding Tube Sodium Chloride 10 ml 06/25/18 22:00 06/27/18 22:37 Sodium Chloride Flush Syringe 10 Ml IV 10 ml BID KATIE Administration Sodium Chloride 10 ml 06/25/18 16:47 Sodium Chloride Flush Syringe 10 Ml IV PRN PRN LINE FLUSH Tamsulosin HCl 0.4 mg 06/26/18 10:00 06/27/18 11:56 Flomax PO Not Given QDAY KATIE Nutrition/Malnutrition Assess - Dietary Evaluation Nutrition/Malnutrition Findings: Nutrition Notes Start: 06/28/18 13:18 Freq: Status: Active Protocol: Document 06/28/18 13:18 RM (Rec: 06/28/18 13:46 RM [id number]) Nutrition Notes Need for Assessment generated from: MD Order Initial or Follow up Assessment Current Diagnosis Sepsis,Hypertension, Hyperlipidemia Other Pertinent Diagnosis Hip PU, R shoulder PU, Nonverbal, Encephalopathy Current Diet Glucerna 1.2 at 80 ml/hr Labs/Tests Na 146, BG 168 Pertinent Medications Reviewed Height 5 ft 11 in Weight 86.5 kg [place] Body Weight (kg) 78.18 BMI 26.6 Subjective/Other Information Consulted for TF recommendation. Pt being held in ED for placement on 4th floor. NGT in place. Per progress note 06/28 HD needs are being assessed daily. Burn Absent Trauma Absent #1 Nutrition Diagnosis Inadequate oral intake Etiology encephalopathy As Evidenced by Signs and Symptoms NPO status, TF consult Is patient on ventilator? No Is Patient Ambulatory and/or Out of Bed No REE-([facility]-confined to bed) [phone] Calculation Used for Recommendations [facility] Additional Notes Protein Needs: 104-112g (1.2-1 .3g/kg) Fluid Needs: 1 ml/kcal Nutrition Intervention Nutrition Support: Nepro 1.8 at 45 ml/hr. Water flush of 250 mls q 4 hrs until hypernatremia resolves. Water flush of 200 mls q 4 hrs once hypernatremia resolves. Kcal 1,944 Protein (gm) 87 Goal #1 TF tolerance Goal #2 Meet at least 75% of calorie and protein needs via TF Anticipated Discharge Needs: Unable to determine at this time Follow-Up By: 06/30/18 Additional Comments Follow for new TF
--- NOTE | 2018-06-28 18:04 | XRay Report ---
PROCEDURE: XR CHEST 1V AP TECHNIQUE: Frontal portable view of the chest HISTORY: L arm PICC placement COMPARISONS: Chest x-ray dated June 27, 2018 FINDINGS: There has been interval placement of a left-sided PICC line with the tip projected in the region of t he superior vena cava near the caval atrial junction. There has been interval placement of a Dobbhoff type feeding tube with the tip projected in the regio n of the stomach. The right central venous catheter is not significantly changed in appearance. There continues to be prominence of the interstitial markings in both lungs similar in appearance to the previous study without definite evidence of focal infiltrate. The cardiac silhouette appears to be enlarged similar in appearance to the previous study. The thoracic aorta is mildly tortuous. The bony structures are unremarkable. IMPRESSION: 1. Tip of PICC line catheter projected in the region of the superior vena cava near the cavoatrial ju nction. 2. Tip of Dobbhoff type feeding catheter projected in the region of the stomach. 3. Otherwise no significant change since previous study dated June 27, 2018. This document is electronically signed by Karla Seymour MD., June 28 2018 06:02:17 PM ET
[2018-06-28] MEDS: SODIUM CHLORIDE FLUSH SYRINGE 10 ML IV SCH ×2 (19:52→21:18)
[2018-06-28] MEDS: FLOMAX PO SCH (19:52)
[2018-06-29] MEDS: LEVOPHED DRIP 4 MG/NS 250 ML 4 MG/250 ML BAG IV SCH ×3 (01:29→22:47)
[2018-06-29] MEDS: D5W IV SCH (06:56)
[2018-06-29] MEDS: ZOSYN IV SCH (06:56)
[2018-06-29 07:51] LABS: Hematocrit 38.9 % (35.5-45.6); Hemoglobin 12.8 gm/dl (11.8-15.2); Mean Corpuscular HGB Conc 33 % (32-34); Mean Corpuscular Volume 88 fl (84-94); Platelet Count 245 K/mm3 (140-440); Red Cell Distribution Width 14.7 % (13.2-15.2)
[2018-06-29 08:02] LABS: Calcium 7.4 mg/dL (8.4-10.2)
--- NOTE | 2018-06-29 09:03 | Progress Note ---
Assessment and Plan Assessment and plan: --Acute Renal failure/hypernatremia: nephrology initiated hemodialysis, sodium levels improved Hemodialysis per schedule --Septic shock; continue Levothroid per protocol Cr Care consulted --Sepsis/lactic acidosis/leukocytosis; Continue empiric antibiotics, cultures negative to date ID evaluation if needed --Dyslipidemia; hold statin in view of rhabdomyolysis --Rhabdomyolysis CK 6427; hemodialysis, gentle hydration CK improved to 2987 -1859 --Bladder outlet obstruction; secondary to enlarged prostate Unable to pass Antoine catheter, urology evaluated the patient Continuous Antoine catheterization --Moderate malnutrition/hypoalbuminemia; nutrition supplements and supportive care --Abdominal aortic aneurysm 6.5 cm impending rupture; on CT abdomen, Dr. Mazariegos discussed with vascular , advised to closely monitor medical management, no indication for patient transfer .Vascular following --DVT prophylaxis; heparin renal dose D/W [facility] director /Physician [phone], Informed me and said that pt is DNR status and that the doccument would be faxed --DNR status Monitor the patient closely and adjust her management as needed Plan of care is reviewed for the patient's Critical care time 35 minutes History Interval history: Patient seen and examined medical records reviewed Patient is chronically and critically ill looking, moaning and groaning opening eyes on calling his name In mild distress Vital signs reviewed Hospitalist Physical - Constitutional Vitals: Temp Pulse Resp BP Pulse Ox 98.7 F 104 H 32 H 129/67 92 06/29/18 03:49 06/29/18 07:11 06/29/18 07:11 06/29/18 07:11 06/29/18 07:11 General appearance: Present: mild distress, cachectic, disheveled - EENT Eyes: Present: PERRL, EOM intact - Neck Neck: Present: supple, normal ROM - Respiratory Respiratory effort: labored Respiratory: bilateral: diminished, negative: rales, rhonchi, wheezing - Cardiovascular Rhythm: regular Heart Sounds: Present: S1 & S2 - Extremities Extremities: no ischemia, No edema - Abdominal General gastrointestinal: soft, non-tender, non-distended, normal bowel sounds - Integumentary Integumentary: Present: clear, warm - Psychiatric Psychiatric: other - Neurologic Neurologic: moves all extremities (noncommunicative), other (minimally communicative) Results - Labs CBC & Chem 7: 06/29/18 07:36 06/29/18 12:35 Labs: Laboratory Last Values WBC 18.6 K/mm3 (4.5-11.0) H 06/29/18 07:36 RBC 4.40 M/mm3 (3.65-5.03) 06/29/18 07:36 Hgb 12.8 gm/dl (11.8-15.2) 06/29/18 07:36 Hct 38.9 % (35.5-45.6) 06/29/18 07:36 MCV 88 fl (84-94) 06/29/18 07:36 MCH 29 pg (28-32) 06/29/18 07:36 MCHC 33 % (32-34) 06/29/18 07:36 RDW 14.7 % (13.2-15.2) 06/29/18 07:36 Plt Count 245 K/mm3 (140-440) 06/29/18 07:36 Add Manual Diff Complete 06/28/18 04:20 Total Counted 100 06/28/18 04:20 Seg Neutrophils % Upset Operator 06/25/18 13:29 Seg Neuts % (Manual) 74.0 % (40.0-70.0) H 06/28/18 04:20 Band Neutrophils % 13.0 % 06/28/18 04:20 Lymphocytes % (Manual) 1.0 % (13.4-35.0) L 06/28/18 04:20 Reactive Lymphs % (Man) 0 % 06/28/18 04:20 Monocytes % (Manual) 12.0 % (0.0-7.3) H 06/28/18 04:20 Eosinophils % (Manual) 0 % (0.0-4.3) 06/28/18 04:20 Basophils % (Manual) 0 % (0.0-1.8) 06/28/18 04:20 Metamyelocytes % 0 % 06/28/18 04:20 Myelocytes % 0 % 06/28/18 04:20 Promyelocytes % 0 % 06/28/18 04:20 Blast Cells % 0 % 06/28/18 04:20 Nucleated RBC % 5.0 % (0.0-0.9) H 06/28/18 04:20 Seg Neutrophils # Man 21.5 K/mm3 (1.8-7.7) H 06/28/18 04:20 Band Neutrophils # 3.8 K/mm3 06/28/18 04:20 Lymphocytes # (Manual) 0.3 K/mm3 (1.2-5.4) L 06/28/18 04:20 Abs React Lymphs (Man) 0.0 K/mm3 06/28/18 04:20 Monocytes # (Manual) 3.5 K/mm3 (0.0-0.8) H 06/28/18 04:20 Eosinophils # (Manual) 0.0 K/mm3 (0.0-0.4) 06/28/18 04:20 Basophils # (Manual) 0.0 K/mm3 (0.0-0.1) 06/28/18 04:20 Metamyelocytes # 0.0 K/mm3 06/28/18 04:20 Myelocytes # 0.0 K/mm3 06/28/18 04:20 Promyelocytes # 0.0 K/mm3 06/28/18 04:20 Blast Cells # 0.0 K/mm3 06/28/18 04:20 WBC Morphology Not Reportable 06/28/18 04:20 Hypersegmented Neuts Not Reportable 06/28/18 04:20 Hyposegmented Neuts Not Reportable 06/28/18 04:20 Hypogranular Neuts Not Reportable 06/28/18 04:20 Smudge Cells Not Reportable 06/28/18 04:20 Toxic Granulation Not Reportable 06/28/18 04:20 Toxic Vacuolation Not Reportable 06/28/18 04:20 Dohle Bodies Not Reportable 06/28/18 04:20 Pelger-Huet Anomaly Not Reportable 06/28/18 04:20 Palma Rods Not Reportable 06/28/18 04:20 Platelet Estimate Appears normal 06/28/18 04:20 Clumped Platelets Not Reportable 06/28/18 04:20 Plt Clumps, EDTA Not Reportable 06/28/18 04:20 Large Platelets Not Reportable 06/28/18 04:20 Giant Platelets Few 06/28/18 04:20 Platelet Satelliting Not Reportable 06/28/18 04:20 Plt Morphology Comment Not Reportable 06/28/18 04:20 RBC Morphology Not Reportable 06/28/18 04:20 Dimorphic RBCs Not Reportable 06/28/18 04:20 Polychromasia Not Reportable 06/28/18 04:20 Hypochromasia Not Reportable 06/28/18 04:20 Poikilocytosis Not Reportable 06/28/18 04:20 Anisocytosis 1+ 06/28/18 04:20 Microcytosis Not Reportable 06/28/18 04:20 Macrocytosis Not Reportable 06/28/18 04:20 Spherocytes Not Reportable 06/28/18 04:20 Pappenheimer Bodies Not Reportable 06/28/18 04:20 Sickle Cells Not Reportable 06/28/18 04:20 Target Cells Few 06/28/18 04:20 Tear Drop Cells Not Reportable 06/28/18 04:20 Ovalocytes Not Reportable 06/28/18 04:20 Helmet Cells Not Reportable 06/28/18 04:20 [place] Bodies Not Reportable 06/28/18 04:20 Sealy Rings Not Reportable 06/28/18 04:20 Narciso Cells Not Reportable 06/28/18 04:20 Bite Cells Not Reportable 06/28/18 04:20 Crenated Cell Not Reportable 06/28/18 04:20 Elliptocytes Not Reportable 06/28/18 04:20 Acanthocytes (Spur) Not Reportable 06/28/18 04:20 Rouleaux Not Reportable 06/28/18 04:20 Hemoglobin C Crystals Not Reportable 06/28/18 04:20 Schistocytes Not Reportable 06/28/18 04:20 Malaria parasites Not Reportable 06/28/18 04:20 Aniket Bodies Not Reportable 06/28/18 04:20 Hem Pathologist Commnt No 06/28/18 04:20 PT 18.8 Sec. (12.2-14.9) H 06/25/18 13:29 INR 1.47 (0.87-1.13) H 06/25/18 13:29 APTT 34.5 Sec. (24.2-36.6) 06/25/18 13:29 Sodium 144 mmol/L (137-145) 06/29/18 07:36 Potassium 4.5 mmol/L (3.6-5.0) 06/29/18 07:36 Chloride 104.7 mmol/L (98-107) 06/29/18 07:36 Carbon Dioxide 18 mmol/L (22-30) L 06/29/18 07:36 Anion Gap 26 mmol/L 06/29/18 07:36 BUN 136 mg/dL (9-20) H 06/29/18 07:36 Creatinine 9.8 mg/dL (0.8-1.5) H 06/29/18 07:36 Estimated GFR 6 ml/min 06/29/18 07:36 BUN/Creatinine Ratio 14 % 06/29/18 07:36 Glucose 196 mg/dL (75-100) H 06/29/18 07:36 POC Glucose 148 (70-105) H 06/29/18 05:14 Lactic Acid 2.00 mmol/L (0.7-2.0) 06/26/18 06:08 Calcium 7.4 mg/dL (8.4-10.2) L 06/29/18 07:36 Phosphorus 7.40 mg/dL (2.5-4.5) H 06/29/18 07:36 Total Bilirubin 3.20 mg/dL (0.1-1.2) H 06/25/18 13:13 AST 100 units/L (5-40) H 06/25/18 13:13 ALT 134 units/L (7-56) H 06/25/18 13:13 Alkaline Phosphatase 170 units/L (35-129) H 06/25/18 13:13 Ammonia 55.0 umol/L (25-60) 06/25/18 13:29 Total Creatine Kinase 2987 units/L (55-170) H 06/28/18 03:18 CK-MB (CK-2) 12.7 ng/mL (0.0-4.0) H 06/28/18 03:18 CK-MB (CK-2) Rel Index 0.4 (0-4) 06/28/18 03:18 Troponin T 0.085 ng/mL (0.00-0.029) H 06/25/18 13:29 Total Protein 8.0 g/dL (6.3-8.2) 06/25/18 13:13 Albumin 3.3 g/dL (3.9-5) L 06/25/18 13:13 Albumin/Globulin Ratio 0.7 % 06/25/18 13:13 Triglycerides 167 mg/dL (2-149) H 06/25/18 13:29 Cholesterol 183 mg/dL (50-199) 06/25/18 13:29 LDL Cholesterol Direct 118 mg/dL (50-130) 06/25/18 13:29 HDL Cholesterol 30 mg/dL (40-59) L 06/25/18 13:29 Cholesterol/HDL Ratio 6.10 % 06/25/18 13:29 Prostate Specific Ag 41.28 ng/mL (0.00-4.00) H 06/25/18 18:11 TSH 1.640 mlU/mL (0.270-4.200) 06/25/18 13:29 Urine Color Red (Yellow) 06/26/18 21:20 Urine Turbidity Turbid (Clear) 06/26/18 21:20 Urine pH 5.0 (5.0-7.0) 06/26/18 21:20 Ur Specific [place] 1.019 (1.003-1.030) 06/26/18 21:20 Urine Protein 100 mg/dl mg/dL (Negative) 06/26/18 21:20 Urine Glucose (UA) 50 mg/dL (Negative) 06/26/18 21:20 Urine Ketones Neg mg/dL (Negative) 06/26/18 21:20 Urine Blood Lg (Negative) 06/26/18 21:20 Urine Nitrite Neg (Negative) 06/26/18 21:20 Urine Bilirubin Neg (Negative) 06/26/18 21:20 Urine Urobilinogen 2.0 mg/dL (<2.0) 06/26/18 21:20 Ur Leukocyte Esterase Mod (Negative) 06/26/18 21:20 Urine WBC (Auto) > 182.0 /HPF (0.0-6.0) H 06/26/18 21:20 Urine RBC (Auto) > 182.0 /HPF (0.0-6.0) 06/26/18 21:20 Urine Bacteria (Auto) 4+ /HPF (Negative) 06/26/18 21:20 Urine WBC Clumps 3+ /HPF 06/26/18 21:20 Ur Transition Epith Cell 25 /HPF 06/26/18 21:20 Urine Creatinine 126.2 mg/dL (0.1-20.0) H 06/26/18 21:20 Protein/Creatinin Ratio 6.58 06/26/18 21:20 Urine Sodium 97 mmol/L 06/26/18 21:20 Urine Urea Nitrogen 252 06/26/18 21:20 Urine Total Protein 830 mg/dL (5-11.8) H 06/26/18 21:20 Urine Opiates Screen Presumptive negative 06/26/18 21:20 Urine Methadone Screen Presumptive negative 06/26/18 21:20 Ur Barbiturates Screen Presumptive negative 06/26/18 21:20 Ur Phencyclidine Scrn Presumptive negative 06/26/18 21:20 Ur Amphetamines Screen Presumptive negative 06/26/18 21:20 U Benzodiazepines Scrn Presumptive negative 06/26/18 21:20 Urine Cocaine Screen Presumptive negative 06/26/18 21:20 U Marijuana (THC) Screen Presumptive negative 06/26/18 21:20 Drugs of Abuse Note Disclamer 06/26/18 21:20 Plasma/Serum Alcohol < 0.01 % (0-0.07) 06/25/18 13:29 Hepatitis A IgM Ab Non-reactive (NonReactive) 06/25/18 16:45 Hep Bs Antigen Non-reactive (Negative) 06/25/18 16:45 Hep B Core IgM Ab Non-reactive (NonReactive) 06/25/18 16:45 Hepatitis C Antibody Non-reactive (NonReactive) 06/25/18 16:45 HIV 1&2 Antibody Rapid Non react (Non React) 06/27/18 13:44 HIV P24 Antigen Non react (Non React) 06/27/18 13:44 Active Medications - Current Medications Current Medications: Generic Name Dose Route Start Last Admin Trade Name Freq PRN Reason Stop Dose Admin Lipase/Protease/Amylase 1 each 06/28/18 13:[address] 10,500 Unit FEEDTUBE PRN PRN For Clogged Feeding Tube Heparin Sodium (Porcine) 5,000 unit 06/25/18 22:00 06/28/18 21:17 Heparin SUB-Q 5,000 unit Q12HR KATIE Administration Dextrose 500 mls @ 0 mls/hr 06/27/18 21:00 06/27/18 20:55 D5w IV 999 mls/hr DIRECT KATIE Administration As Directed Norepinephrine 4 mg in 250 mls @ 7.5 mls/hr 06/27/18 22:00 06/29/18 06:45 Levophed Drip 4 Mg/Ns 250 Ml IV 14 mcg/min TITR KATIE 52.5 mls/hr Titration Protocol 2 MCG/MIN Piperacillin Sod/Tazobactam 50 mls @ 50 mls/30 min 06/27/18 23:00 06/29/18 06:56 Sod 2.25 gm/ Dextrose IV 100 mls/30 min Q8H KATIE Administration Morphine Sulfate 1 mg 06/28/18 11:46 06/28/18 19:25 Morphine IV 1 mg Q6H PRN Administration Chest Pain unrelieved by NTG Simple Syrup 15 ml 06/28/18 13:47 Simple Syrup FEEDTUBE PRN PRN Hypoglycemia Simple Syrup 30 ml 06/28/18 13:47 Simple Syrup FEEDTUBE PRN PRN Hypoglycemia Sodium Bicarbonate 325 mg 06/28/18 13:47 Sodium Bicarbonate FEEDTUBE PRN PRN For Clogged Feeding Tube Sodium Chloride 10 ml 06/25/18 22:00 06/28/18 21:18 Sodium Chloride Flush Syringe 10 Ml IV 10 ml BID KATIE Administration Sodium Chloride 10 ml 06/25/18 16:47 Sodium Chloride Flush Syringe 10 Ml IV PRN PRN LINE FLUSH Tamsulosin HCl 0.4 mg 06/26/18 10:00 06/28/18 19:52 Flomax PO Not Given QDAY [facility] Nutrition/Malnutrition Assess - Dietary Evaluation Nutrition/Malnutrition Findings: Nutrition Notes Start: 06/28/18 1 3:18 Freq: Status: Active Protocol: Document 06/28/18 13:18 RM (Rec: 06/28/18 13:46 RM [id number]) Nutrition Notes Need for Assessment generated from: MD Order Initial or Follow up Assessment Current Diagnosis Sepsis,Hypertension, Hyperlipidemia Other Pertinent Diagnosis Hip PU, R shoulder PU, Nonverbal, Encephalopathy Current Diet Glucerna 1.2 at 80 ml/hr Labs/Tests Na 146, BG 168 Pertinent Medications Reviewed Height 5 ft 11 in Weight 86.5 kg Left Hand Body Weight (kg) 78.18 BMI 26.6 Subjective/Other Information Consulted for TF recommendation. Pt being held in ED for placement on 4th floor. NGT in place. Per progress note 06/28 HD needs are being assessed daily. Burn Absent Trauma Absent #1 Nutrition Diagnosis Inadequate oral intake Etiology encephalopathy As Evidenced by Signs and Symptoms NPO status, TF consult Is patient on ventilator? No Is Patient Ambulatory and/or Out of Bed No REE-([facility]-confined to bed) [phone] Calculation Used for Recommendations [facility] Additional Notes Protein Needs: 104-112g (1.2-1 .3g/kg) Fluid Needs: 1 ml/kcal Nutrition Intervention Nutrition Support: Nepro 1.8 at 45 ml/hr. Water flush of 250 mls q 4 hrs until hypernatremia resolves. Water flush of 200 mls q 4 hrs once hypernatremia resolves. Kcal 1,944 Protein (gm) 87 Goal #1 TF tolerance Goal #2 Meet at least 75% of calorie and protein needs via TF Anticipated Discharge Needs: Unable to determine at this time Follow-Up By: 06/30/18 Additional Comments Follow for new TF
[2018-06-29 09:18] LABS: Basophils % (Manual) 0 % (0.0-1.8); Eosinophils % (Manual) 0 % (0.0-4.3); Total Cells Counted 100
[2018-06-29 09:28] LABS: Anisocytosis 1+; Large Platelets Few; Platelet Estimate Consistent w Auto; Poikilocytosis 1+; Target Cells 1+
[2018-06-29] MEDS: HEPARIN SUB-Q SCH ×2 (10:27→22:47)
[2018-06-29] MEDS: SODIUM CHLORIDE FLUSH SYRINGE 10 ML IV SCH ×2 (10:27→22:50)
--- NOTE | 2018-06-29 11:24 | Progress Note ---
Assessment and Plan Severe renal failure, dialysis dependent Severe Renal failure, likely ATN from volume depletion, sepsis and rhabdo vs prerenal azotemia AG acidosis secondary to renal failure and lactic acidosis Metabolic encephalopathy secondary to sepsis but cannot r/o uremia, baseline is unknown Sepsis Rhabdomyolysis Elevated LFTs - Renal function reviewed- BUN 136, Serum creatinine 9.8 today. S/P first HD on 06/27/18 and second HD on 06/28/18. - HD ordered for today on 06/29/18 and also tomorrow on 06/30/18 - S/P vasc cath placement for hemodialysis on 06/27/[address] Reagan - Enlarged prostate- Dr. Vo, Urology onboard - Renal US- Renal disease. Simple cysts bilaterally. No Hydronephrosis - Urine studies revealed proteinuria - Ordered GN work-up - HIV and Hep-negative - Renally dose medications - Strict I&O monitoring - Obtain daily weights - Monitor renal function closely - Assess dialysis needs daily Subjective Date of service: 06/29/18 Principal diagnosis: Severe Renal Failure, AMS Interval history: Patient seen in ICU. More awake and alert today. Receiving oral care. Objective - Vital Signs Vital signs: Vital Signs - 12hr 06/28/18 06/28/18 06/28/18 23:30 23:41 23:51 Temperature Pulse Rate 93 H 90 87 Respiratory 25 H 21 16 Rate Blood Pressure 127/66 127/66 101/50 O2 Sat by Pulse 94 91 Oximetry 06/29/18 06/29/18 06/29/18 00:00 00:01 00:11 Temperature 98.2 F Pulse Rate 88 80 Respiratory 19 17 Rate Blood Pressure 109/54 109/54 O2 Sat by Pulse 92 92 Oximetry 06/29/18 06/29/18 06/29/18 00:21 00:31 00:41 Temperature Pulse Rate 85 89 83 Respiratory 17 17 17 Rate Blood Pressure 96/45 102/53 102/53 O2 Sat by Pulse 92 100 90 Oximetry 06/29/18 06/29/18 06/29/18 00:51 01:00 01:11 Temperature Pulse Rate 85 83 84 Respiratory 17 18 17 Rate Blood Pressure 101/50 114/72 114/72 O2 Sat by Pulse 95 92 Oximetry 06/29/18 06/29/18 06/29/18 01:21 01:30 01:41 Temperature Pulse Rate 87 88 77 Respiratory 17 19 17 Rate Blood Pressure 106/51 121/65 121/65 O2 Sat by Pulse Oximetry 06/29/18 06/29/18 06/29/18 01:51 02:00 02:11 Temperature Pulse Rate 88 89 85 Respiratory 22 19 19 Rate Blood Pressure 112/62 112/62 119/96 O2 Sat by Pulse 100 79 L Oximetry 06/29/18 06/29/18 06/29/18 02:21 02:30 02:41 Temperature Pulse Rate 86 86 91 H Respiratory 19 19 22 Rate Blood Pressure 119/96 108/50 108/50 O2 Sat by Pulse 91 Oximetry 06/29/18 06/29/18 06/29/18 02:50 03:00 03:11 Temperature Pulse Rate 92 H 93 H 86 Respiratory 22 22 19 Rate Blood Pressure 108/50 123/60 123/60 O2 Sat by Pulse 92 Oximetry 06/29/18 06/29/18 06/29/18 03:21 03:30 03:41 Temperature Pulse Rate 83 95 H 90 Respiratory 19 22 23 Rate Blood Pressure 106/52 98/54 98/54 O2 Sat by Pulse Oximetry 06/29/18 06/29/18 06/29/18 03:49 03:51 04:01 Temperature 98.7 F Pulse Rate 88 99 H Respiratory 21 32 H Rate Blood Pressure 115/58 134/81 O2 Sat by Pulse Oximetry 06/29/18 06/29/18 06/29/18 04:10 04:20 04:30 Temperature Pulse Rate 92 H 94 H 105 H Respiratory 25 H 25 H 37 H Rate Blood Pressure 134/81 113/57 107/62 O2 Sat by Pulse Oximetry 06/29/18 06/29/18 06/29/18 04:40 04:51 05:00 Temperature Pulse Rate 98 H 97 H 94 H Respiratory 29 H 27 H 27 H Rate Blood Pressure 107/62 107/62 108/55 O2 Sat by Pulse 88 89 89 Oximetry 06/29/18 06/29/18 06/29/18 05:11 05:21 05:30 Temperature Pulse Rate 98 H 96 H 101 H Respiratory 32 H 30 H 30 H Rate Blood Pressure 108/55 98/52 120/65 O2 Sat by Pulse 87 Oximetry 06/29/18 06/29/18 06/29/18 05:41 05:51 06:00 Temperature Pulse Rate 80 105 H 102 H Respiratory 30 H 28 H 28 H Rate Blood Pressure 120/65 120/61 99/50 O2 Sat by Pulse 89 86 84 Oximetry 06/29/18 06/29/18 06/29/18 06:11 06:21 06:30 Temperature Pulse Rate 105 H 103 H 105 H Respiratory 30 H 33 H 30 H Rate Blood Pressure 99/50 123/69 129/72 O2 Sat by Pulse 88 87 81 L Oximetry 06/29/18 06/29/18 06/29/18 06:41 06:51 07:00 Temperature Pulse Rate 99 H 108 H 104 H Respiratory 31 H 17 33 H Rate Blood Pressure 129/72 130/68 130/68 O2 Sat by Pulse 87 62 L Oximetry 06/29/18 06/29/18 06/29/18 07:11 07:21 07:30 Temperature Pulse Rate 104 H 107 H 110 H Respiratory 32 H 30 H 16 Rate Blood Pressure 129/67 126/77 113/71 O2 Sat by Pulse 92 92 55 L Oximetry 06/29/18 06/29/18 06/29/18 07:41 07:51 08:00 Temperature 98.9 F Pulse Rate 119 H 118 H 114 H Respiratory 20 22 29 H Rate Blood Pressure 113/71 112/73 106/63 O2 Sat by Pulse 79 L 87 Oximetry 06/29/18 06/29/18 06/29/18 08:11 08:21 08:30 Temperature Pulse Rate 120 H 115 H 111 H Respiratory 12 31 H 30 H Rate Blood Pressure 106/63 106/52 115/56 O2 Sat by Pulse 95 96 80 L Oximetry 06/29/18 06/29/18 06/29/18 08:41 08:51 09:00 Temperature Pulse Rate 113 H 111 H 113 H Respiratory 31 H 30 H 32 H Rate Blood Pressure 115/56 123/62 115/62 O2 Sat by Pulse 99 99 98 Oximetry 06/29/18 06/29/18 06/29/18 09:11 09:21 09:30 Temperature Pulse Rate 112 H 113 H 116 H Respiratory 31 H 31 H 32 H Rate Blood Pressure 115/62 118/59 98/49 O2 Sat by Pulse 99 96 97 Oximetry 06/29/18 06/29/18 06/29/18 09:41 09:51 10:00 Temperature Pulse Rate 119 H 119 H 112 H Respiratory 39 H 33 H 33 H Rate Blood Pressure 98/49 92/51 104/55 O2 Sat by Pulse 99 98 99 Oximetry 06/29/18 10:11 Temperature Pulse Rate 113 H Respiratory 33 H Rate Blood Pressure 104/55 O2 Sat by Pulse 100 Oximetry - General Appearance General appearance: well-developed, fatigue EENT: ATNC, PERRL, hearing intact Neck: no JVD, supple Respiratory: Present: Decreased Breath Sounds Cardiology: tachycardia, S1S2 Gastrointestinal: normoactive bowel sounds, other (Has Dobhoff tube feeding) Neurologic: other (More awake and alert today) Musculoskeletal: other (No edema) - Lab 06/29/18 07:36 06/29/18 07:36 Most recent lab results Calcium 7.4 mg/dL (8.4-10.2) L 06/29/18 07:36 Phosphorus 7.40 mg/dL (2.5-4.5) H 06/29/18 07:36 Urine Creatinine 126.2 mg/dL (0.1-20.0) H 06/26/18 21:20 Urine Sodium 97 mmol/L 06/26/18 21:20 Urine Total Protein 830 mg/dL (5-11.8) H 06/26/18 21:20 Medications & Allergies - Medications Allergies/Adverse Reactions: Allergies No Known Allergies Allergy (Unverified 06/25/18 12:55) Home Medications: Home Medications Medication Instructions Recorded Confirmed Last Taken Type Amlodipine Besylate/Benazepril 1 each PO DAILY 06/25/18 06/25/18 Unknown History [Amlodipine-Benazepril 5-20 mg] Aspirin [Adult Aspirin Regimen] 81 mg PO DAILY 06/25/18 06/25/18 Unknown History AtorvaSTATin [Lipitor] 40 mg PO QHS 06/25/18 06/25/18 Unknown History Losartan [Cozaar] 100 mg PO QDAY 06/25/18 06/25/18 Unknown History Tamsulosin [Flomax] 0.4 mg PO QDAY 06/25/18 06/25/18 Unknown History Active Medications: Generic Name Dose Route Start Last Admin Trade Name Freq PRN Reason Stop Dose Admin Lipase/Protease/Amylase 1 each 06/28/18 13:47 Pancregeovanna Duran 10,500 Unit FEEDTUBE PRN PRN For Clogged Feeding Tube Heparin Sodium (Porcine) 5,000 unit 06/25/18 22:00 06/28/18 21:17 Heparin SUB-Q 5,000 unit Q12HR KATIE Administration Norepinephrine 4 mg in 250 mls @ 7.5 mls/hr 06/27/18 22:00 06/29/18 06:45 Levophed Drip 4 Mg/Ns 250 Ml IV 14 mcg/min TITR KATIE 52.5 mls/hr Titration Protocol 2 MCG/MIN Morphine Sulfate 1 mg 06/28/18 11:46 06/28/18 19:25 Morphine IV 1 mg Q6H PRN Administration Chest Pain unrelieved by NTG Simple Syrup 15 ml 06/28/18 13:47 Simple Syrup FEEDTUBE PRN PRN Hypoglycemia Simple Syrup 30 ml 06/28/18 13:47 Simple Syrup FEEDTUBE PRN PRN Hypoglycemia Sodium Bicarbonate 325 mg 06/28/18 13:47 Sodium Bicarbonate FEEDTUBE PRN PRN For Clogged Feeding Tube Sodium Chloride 10 ml 06/25/18 22:00 06/28/18 21:18 Sodium Chloride Flush Syringe 10 Ml IV 10 ml BID KATIE Administration Sodium Chloride 10 ml 06/25/18 16:47 Sodium Chloride Flush Syringe 10 Ml IV PRN PRN LINE FLUSH Tamsulosin HCl 0.4 mg 06/26/18 10:00 06/28/18 19:52 Flomax PO Not Given QDAY KATIE
--- NOTE | 2018-06-29 13:10 | Consultation ---
History of Present Illness - Reason for Consult Consult date: 06/29/18 Requesting physician: CHINYERE SERNA - History of Present Illness 78 y/o male with hypotension on levophed. Originally admitted several days ago with fall and being found down. Was found to be in acute renal failure and rhabdomyolysis. Has been bordering in the ED for several days. Patient sub sequently needed HD but became hypotensive and was started on vasopressor therapy. Now transitioned to the ICU for further care. Past History Past Medical History: hypertension, hyperlipidemia, hypothyroidism, other (BPH, Sacral Decubitus Ulcers) Past Surgical History: No surgical history, Other (UTO) Social history: single. denies: smoking, alcohol abuse, prescription drug abuse Family history: hypertension Medications and Allergies Allergies Allergy/AdvReac Type Severity Reaction Status Date / Time No Known Allergies Allergy Unverified 06/25/18 12:55 Home Medications Medication Instructions Recorded Confirmed Last Taken Type Amlodipine Besylate/Benazepril 1 each PO DAILY 06/25/18 06/25/18 Unknown History [Amlodipine-Benazepril 5-20 mg] Aspirin [Adult Aspirin Regimen] 81 mg PO DAILY 06/25/18 06/25/18 Unknown History AtorvaSTATin [Lipitor] 40 mg PO QHS 06/25/18 06/25/18 Unknown History Losartan [Cozaar] 100 mg PO QDAY 06/25/18 06/25/18 Unknown History Tamsulosin [Flomax] 0.4 mg PO QDAY 06/25/18 06/25/18 Unknown History Active Meds: Active Medications Lipase/Protease/Amylase (Bhupendra Duran 10,500 Unit) 1 each FEEDTUBE PRN PRN PRN Reason: For Clogged Feeding Tube Heparin Sodium (Porcine) (Heparin) 5,000 unit SUB-Q Q12HR KATIE Last Admin: 06/28/18 21:17 Dose: 5,000 unit Documented by: Norepinephrine (Levophed Drip 4 Mg/Ns 250 Ml) 4 mg in 250 mls @ 7.5 mls/hr IV TITR KATIE; Protocol Last Titration: 06/29/18 06:45 Dose: 14 mcg/min, 52.5 mls/hr Documented by: Morphine Sulfate (Morphine) 1 mg IV Q6H PRN PRN Reason: Chest Pain unrelieved by NTG Last Admin: 06/28/18 19:25 Dose: 1 mg Documented by: Simple Syrup (Simple Syrup) 15 ml FEEDTUBE PRN PRN PRN Reason: Hypoglycemia Simple Syrup (Simple Syrup) 30 ml FEEDTUBE PRN PRN PRN Reason: Hypoglycemia Sodium Bicarbonate (Sodium Bicarbonate) 325 mg FEEDTUBE PRN PRN PRN Reason: For Clogged Feeding Tube Sodium Chloride (Sodium Chloride Flush Syringe 10 Ml) 10 ml IV BID [facility] Last Admin: 06/28/18 21:18 Dose: 10 ml Documented by: Sodium Chloride (Sodium Chloride Flush Syringe 10 Ml) 10 ml IV PRN PRN PRN Reason: LINE FLUSH Tamsulosin HCl (Flomax) 0.4 mg PO QDAY [facility] Last Admin: 06/28/18 19:52 Dose: Not Given Documented by: Review of Systems All systems: negative Exam - Constitutional Vitals: Temp Pulse Resp BP Pulse Ox 98.9 F 113 H 33 H 104/55 100 06/29/18 08:00 06/29/18 10:11 06/29/18 10:11 06/29/18 10:11 06/29/18 10:11 General appearance: Present: mild distress, obese - EENT Eyes: Present: PERRL, EOM intact ENT: hearing intact, poor dentition, other (thick secretions) - Neck Neck: Present: supple, normal ROM - Respiratory Respiratory effort: labored Respiratory: bilateral: rales - Extremities Extremities: no ischemia Results - Labs CBC & Chem 7: 06/30/18 06:32 06/30/18 06:32 Labs: Abnormal lab results 06/28/18 06/29/18 06/29/18 Range/Units 23:43 05:14 07:36 WBC 18.6 H (4.5-11.0) K/mm3 Seg Neuts % (Manual) 90.0 H (40.0-70.0) % Lymphocytes % (Manual) 6.0 L (13.4-35.0) % Nucleated RBC % 11.0 H (0.0-0.9) % Seg Neutrophils # Man 16.7 H (1.8-7.7) K/mm3 Lymphocytes # (Manual) 1.1 L (1.2-5.4) K/mm3 Carbon Dioxide (22-30) mmol/L BUN (9-20) mg/dL Creatinine (0.8-1.5) mg/dL Glucose (75-100) mg/dL POC Glucose 158 H 148 H (70-105) Calcium (8.4-10.2) mg/dL Phosphorus (2.5-4.5) mg/dL 06/29/18 06/29/18 Range/Units 07:36 12:36 WBC (4.5-11.0) K/mm3 Seg Neuts % (Manual) (40.0-70.0) % Lymphocytes % (Manual) (13.4-35.0) % Nucleated RBC % (0.0-0.9) % Seg Neutrophils # Man (1.8-7.7) K/mm3 Lymphocytes # (Manual) (1.2-5.4) K/mm3 Carbon Dioxide 18 L (22-30) mmol/L BUN 136 H (9-20) mg/dL Creatinine 9.8 H (0.8-1.5) mg/dL Glucose 196 H (75-100) mg/dL POC Glucose 177 H (70-105) Calcium 7.4 L (8.4-10.2) mg/dL Phosphorus 7.40 H (2.5-4.5) mg/dL - Imaging and Cardiology Chest x-ray: image reviewed (clear) Assessment and Plan 78 y/o male with Rhabdo, acute renal failure, now requiring HD and hypotension, concern for Sepsis 1. Repeat CK levels 2. HD per renal 3. Wean vasopressor therapy for MAPs >65 4. AAA has been evaluated and addressed by vascular 5. Need to restart thyroid medication 6. Overall prognosis is guarded
[2018-06-29] MEDS ORDERED: NACL 0.9% 100 ML IV PRN (16:30)
[2018-06-29] MEDS: FLOMAX PO SCH (16:32)
[2018-06-29] MEDS: HEPARIN 10,000 UNITS/10 ML IV PRN (16:53)
[2018-06-30] MEDS: LEVOPHED DRIP 4 MG/NS 250 ML 4 MG/250 ML BAG IV SCH ×3 (04:01→19:27)
[2018-06-30 07:04] LABS: Calcium 8.1 mg/dL (8.4-10.2)
[2018-06-30 07:21] LABS: Hematocrit 37.9 % (35.5-45.6); Hemoglobin 12.6 gm/dl (11.8-15.2); Mean Corpuscular HGB Conc 33 % (32-34); Mean Corpuscular Volume 88 fl (84-94); Platelet Count 222 K/mm3 (140-440); Red Blood Count 4.31 M/mm3 (3.65-5.03); Red Cell Distribution Width 15.2 % (13.2-15.2)
--- NOTE | 2018-06-30 07:24 | XRay Report ---
PROCEDURE: XR ABDOMEN 1V AP TECHNIQUE: AP portable abdominal radiograph HISTORY: to comfirm dobhoff placement COMPARISONS: 06/28/2018 FINDINGS: Enteric tube is coiled in the stomach. No pneumoperitoneum. Scattered air-filled loops of bowel appea r similar to prior. IMPRESSION: Enteric tube coiled in the stomach. This document is electronically signed by Donald Jain MD., June 30 2018 07:21:56 AM ET
[2018-06-30 08:13] LABS: Basophils % (Manual) 0 % (0.0-1.8); Total Cells Counted 100
[2018-06-30 08:14] LABS: Giant Platelets Few; Platelet Estimate Consistent w Auto; Target Cells 1+
[2018-06-30] MEDS ORDERED: NACL 0.9% 1000 ML 1,000 ML ONE (09:07)
--- NOTE | 2018-06-30 09:46 | Progress Note ---
Assessment and Plan Severe renal failure, dialysis dependent Severe Renal failure, likely ATN from volume depletion, sepsis and rhabdo vs prerenal azotemia AG acidosis secondary to renal failure and lactic acidosis Metabolic encephalopathy secondary to sepsis but cannot r/o uremia, baseline is unknown Sepsis Rhabdomyolysis Elevated LFTs - no signs of renal recovery, oliguric - HD today for clearance and volume removal, will assess dialysis needs daily - Enlarged prostate- Dr. Vo, Urology onboard - Renal US- Renal disease. Simple cysts bilaterally. No Hydronephrosis - Urine studies revealed proteinuria - Renally dose medications - Strict I&O monitoring - Obtain daily weights - Monitor renal function closely - Assess dialysis needs daily Subjective Date of service: 06/30/18 Principal diagnosis: Severe Renal Failure, AMS Interval history: follows simple commands, no family at bedside Objective - Vital Signs Vital signs: Vital Signs - 12hr 06/29/18 06/29/18 06/29/18 21:51 22:00 22:01 Temperature Pulse Rate 107 H Pulse Rate [ Apical] Respiratory Rate Blood Pressure 125/67 89/49 O2 Sat by Pulse 96 93 Oximetry O2 Sat by Pulse Oximetry [ Throughout] 06/29/18 06/29/18 06/29/18 22:11 22:21 22:30 Temperature Pulse Rate 94 H 113 H Pulse Rate [ Apical] Respiratory 23 28 H Rate Blood Pressure 89/49 94/54 84/47 O2 Sat by Pulse 96 97 93 Oximetry O2 Sat by Pulse Oximetry [ Throughout] 06/29/18 06/29/18 06/29/18 22:41 22:51 23:00 Temperature Pulse Rate 121 H 88 103 H Pulse Rate [ Apical] Respiratory 26 H 20 32 H Rate Blood Pressure 84/47 101/54 120/54 O2 Sat by Pulse 86 100 93 Oximetry O2 Sat by Pulse Oximetry [ Throughout] 06/29/18 06/29/18 06/29/18 23:11 23:20 23:30 Temperature Pulse Rate 90 87 90 Pulse Rate [ Apical] Respiratory 22 19 22 Rate Blood Pressure 120/54 128/60 119/56 O2 Sat by Pulse 98 100 99 Oximetry O2 Sat by Pulse Oximetry [ Throughout] 06/29/18 06/29/18 06/29/18 23:38 23:40 23:50 Temperature 97.8 F Pulse Rate 91 H 86 Pulse Rate [ Apical] Respiratory 22 21 Rate Blood Pressure 128/60 125/62 O2 Sat by Pulse 99 96 Oximetry O2 Sat by Pulse Oximetry [ Throughout] 06/30/18 06/30/18 06/30/18 00:00 00:10 00:20 Temperature Pulse Rate 86 84 79 Pulse Rate [ 106 H Apical] Respiratory 19 21 18 Rate Blood Pressure 118/54 118/54 107/66 O2 Sat by Pulse 98 98 100 Oximetry O2 Sat by Pulse Oximetry [ Throughout] 06/30/18 06/30/18 06/30/18 00:30 00:40 00:50 Temperature Pulse Rate 89 84 99 H Pulse Rate [ Apical] Respiratory 22 18 18 Rate Blood Pressure 129/74 129/74 129/74 O2 Sat by Pulse 99 99 98 Oximetry O2 Sat by Pulse Oximetry [ Throughout] 06/30/18 06/30/18 06/30/18 01:00 01:10 01:20 Temperature Pulse Rate 103 H 113 H 103 H Pulse Rate [ Apical] Respiratory 20 25 H 28 H Rate Blood Pressure 104/40 104/40 129/74 O2 Sat by Pulse 95 98 97 Oximetry O2 Sat by Pulse Oximetry [ Throughout] 06/30/18 06/30/18 06/30/18 01:30 01:40 01:50 Temperature Pulse Rate 100 H 110 H 84 Pulse Rate [ Apical] Respiratory 22 23 19 Rate Blood Pressure 99/45 99/45 140/73 O2 Sat by Pulse 99 99 99 Oximetry O2 Sat by Pulse Oximetry [ Throughout] 06/30/18 06/30/18 06/30/18 02:00 02:10 02:20 Temperature Pulse Rate 86 101 H 98 H Pulse Rate [ Apical] Respiratory 21 23 17 Rate Blood Pressure 144/71 144/71 140/73 O2 Sat by Pulse 100 98 96 Oximetry O2 Sat by Pulse Oximetry [ Throughout] 06/30/18 06/30/18 06/30/18 02:30 02:40 02:50 Temperature Pulse Rate 105 H 103 H 120 H Pulse Rate [ Apical] Respiratory 20 26 H 28 H Rate Blood Pressure 87/38 87/38 81/43 O2 Sat by Pulse 97 97 98 Oximetry O2 Sat by Pulse Oximetry [ Throughout] 06/30/18 06/30/18 06/30/18 03:00 03:10 03:20 Temperature 97.3 F L Pulse Rate 83 93 H 98 H Pulse Rate [ Apical] Respiratory 19 21 19 Rate Blood Pressure 127/65 127/65 81/43 O2 Sat by Pulse 100 99 97 Oximetry O2 Sat by Pulse Oximetry [ Throughout] 06/30/18 06/30/18 06/30/18 03:30 03:40 03:50 Temperature Pulse Rate 106 H 105 H 102 H Pulse Rate [ Apical] Respiratory 23 23 21 Rate Blood Pressure 92/42 92/42 102/38 O2 Sat by Pulse 95 98 96 Oximetry O2 Sat by Pulse Oximetry [ Throughout] 06/30/18 06/30/18 06/30/18 04:00 04:10 04:20 Temperature Pulse Rate 88 73 88 Pulse Rate [ 113 H Apical] Respiratory 24 22 24 Rate Blood Pressure 107/66 107/66 98/71 O2 Sat by Pulse 100 97 100 Oximetry O2 Sat by Pulse Oximetry [ Throughout] 06/30/18 06/30/18 06/30/18 04:30 04:40 04:50 Temperature Pulse Rate 79 94 H 82 Pulse Rate [ Apical] Respiratory 22 23 18 Rate Blood Pressure 107/66 127/66 136/73 O2 Sat by Pulse 97 100 100 Oximetry O2 Sat by Pulse Oximetry [ Throughout] 06/30/18 06/30/18 06/30/18 05:00 05:10 05:20 Temperature Pulse Rate 91 H 90 76 Pulse Rate [ Apical] Respiratory 25 H 24 17 Rate Blood Pressure 123/81 123/81 140/71 O2 Sat by Pulse 100 99 99 Oximetry O2 Sat by Pulse Oximetry [ Throughout] 06/30/18 06/30/18 06/30/18 05:30 05:40 05:50 Temperature Pulse Rate 89 92 H 82 Pulse Rate [ Apical] Respiratory 23 24 18 Rate Blood Pressure 154/75 154/75 136/79 O2 Sat by Pulse 100 100 100 Oximetry O2 Sat by Pulse Oximetry [ Throughout] 06/30/18 06/30/18 06/30/18 06:00 06:10 06:20 Temperature Pulse Rate 82 84 80 Pulse Rate [ Apical] Respiratory 19 20 17 Rate Blood Pressure 137/68 137/68 138/75 O2 Sat by Pulse 100 100 100 Oximetry O2 Sat by Pulse Oximetry [ Throughout] 06/30/18 09:10 Temperature 98.2 F Pulse Rate 85 Pulse Rate [ Apical] Respiratory 26 H Rate Blood Pressure 116/59 O2 Sat by Pulse Oximetry O2 Sat by Pulse 99 Oximetry [ Throughout] - General Appearance General appearance: well-developed, well-nourished EENT: ATNC, PERRL, mucous membranes dry Neck: no JVD, no carotid bruit Respiratory: Present: Decreased Breath Sounds Cardiology: tachycardia Gastrointestinal: normoactive bowel sounds Integumentary: no rash, warm and dry Neurologic: other (follows simple commands) Musculoskeletal: other (trace pitting edema in BLE) - Lab 06/30/18 06:32 06/30/18 06:32 Most recent lab results Calcium 8.1 mg/dL (8.4-10.2) L 06/30/18 06:32 Phosphorus 7.10 mg/dL (2.5-4.5) H 06/30/18 06:32 Urine Creatinine 126.2 mg/dL (0.1-20.0) H 06/26/18 21:20 Urine Sodium 97 mmol/L 06/26/18 21:20 Urine Total Protein 830 mg/dL (5-11.8) H 06/26/18 21:20 Medications & Allergies - Medications Allergies/Adverse Reactions: Allergies No Known Allergies Allergy (Unverified 06/25/18 12:55) Home Medications: Home Medications Medication Instructions Recorded Confirmed Last Taken Type Amlodipine Besylate/Benazepril 1 each PO DAILY 06/25/18 06/25/18 Unknown History [Amlodipine-Benazepril 5-20 mg] Aspirin [Adult Aspirin Regimen] 81 mg PO DAILY 06/25/18 06/25/18 Unknown History AtorvaSTATin [Lipitor] 40 mg PO QHS 06/25/18 06/25/18 Unknown History Losartan [Cozaar] 100 mg PO QDAY 06/25/18 06/25/18 Unknown History Tamsulosin [Flomax] 0.4 mg PO QDAY 06/25/18 06/25/18 Unknown History Active Medications: Generic Name Dose Route Start Last Admin Trade Name Freq PRN Reason Stop Dose Admin Lipase/Protease/Amylase 1 each 06/28/18 13:47 Pancregeovanna Duran 10,500 Unit FEEDTUBE PRN PRN For Clogged Feeding Tube Heparin Sodium (Porcine) 5,000 unit 06/25/18 22:00 06/29/18 22:47 Heparin SUB-Q 5,000 unit Q12HR KATIE Administration Heparin Sodium (Porcine) 2,000 unit 06/29/18 16:30 06/29/18 16:53 Heparin 10,000 Units/10 Ml IV 2,000 unit KELI PRN Administration hemodialysis Norepinephrine 4 mg in 250 mls @ 7.5 mls/hr 06/27/18 22:00 06/30/18 04:01 Levophed Drip 4 Mg/Ns 250 Ml IV 26 mcg/min TITR KATIE 97.5 mls/hr Administration Protocol 2 MCG/MIN Sodium Chloride 100 mls @ 999 mls/hr 06/29/18 16:30 Nacl 0.9% IV KELI PRN Hypotension Morphine Sulfate 1 mg 06/28/18 11:46 06/28/18 19:25 Morphine IV 1 mg Q6H PRN Administration Chest Pain unrelieved by NTG Simple Syrup 15 ml 06/28/18 13:47 Simple Syrup FEEDTUBE PRN PRN Hypoglycemia Simple Syrup 30 ml 06/28/18 13:47 Simple Syrup FEEDTUBE PRN PRN Hypoglycemia Sodium Bicarbonate 325 mg 06/28/18 13:47 Sodium Bicarbonate FEEDTUBE PRN PRN For Clogged Feeding Tube Sodium Chloride 10 ml 06/25/18 22:00 06/29/18 22:50 Sodium Chloride Flush Syringe 10 Ml IV 10 ml BID KATIE Administration Sodium Chloride 10 ml 06/25/18 16:47 Sodium Chloride Flush Syringe 10 Ml IV PRN PRN LINE FLUSH Tamsulosin HCl 0.4 mg 06/26/18 10:00 06/29/18 16:32 Flomax PO Not Given QDAY KATIE
--- NOTE | 2018-06-30 11:03 | Progress Note ---
Assessment and Plan 78 y/o male with Rhabdo, acute renal failure, now requiring HD and hypotension, concern for Sepsis 1. Repeat CK levels, trending down 2. HD per renal, they will assess daily 3. Wean vasopressor therapy for MAPs >65 4. AAA has been evaluated and addressed by vascular 5. Need to restart thyroid medication, will order today. 6. Overall prognosis is guarded Will discuss with primary talks had around the time of decision of AND. Need to reach out to family again as patient is not doing well and has high potential for a quick change clinically for the worse. CCT 31 minutes. Subjective Date of service: 06/30/18 Principal diagnosis: Severe Renal Failure, AMS Interval history: Currently undergoing HD. TAchy, appears to be afib. Still has 2.5 hours left of HD. BP stable. 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 Patient seems uncomfortable but remai ns awake and follows commands appropriately. Still on levo at 20. No family present. Objective - Constitutional Vitals: Vital Signs - 12hr 06/29/18 06/29/18 06/29/18 23:11 23:20 23:30 Temperature Pulse Rate 90 87 90 Pulse Rate [ Apical] Respiratory 22 19 22 Rate Blood Pressure 120/54 128/60 119/56 O2 Sat by Pulse 98 100 99 Oximetry O2 Sat by Pulse Oximetry [ Throughout] 06/29/18 06/29/18 06/29/18 23:38 23:40 23:50 Temperature 97.8 F Pulse Rate 91 H 86 Pulse Rate [ Apical] Respiratory 22 21 Rate Blood Pressure 128/60 125/62 O2 Sat by Pulse 99 96 Oximetry O2 Sat by Pulse Oximetry [ Throughout] 06/30/18 06/30/18 06/30/18 00:00 00:10 00:20 Temperature Pulse Rate 86 84 79 Pulse Rate [ 106 H Apical] Respiratory 19 21 18 Rate Blood Pressure 118/54 118/54 107/66 O2 Sat by Pulse 98 98 100 Oximetry O2 Sat by Pulse Oximetry [ Throughout] 06/30/18 06/30/18 06/30/18 00:30 00:40 00:50 Temperature Pulse Rate 89 84 99 H Pulse Rate [ Apical] Respiratory 22 18 18 Rate Blood Pressure 129/74 129/74 129/74 O2 Sat by Pulse 99 99 98 Oximetry O2 Sat by Pulse Oximetry [ Throughout] 04/06/30/18 06/30/18 01:00 01:10 01:20 Temperature Pulse Rate 103 H 113 H 103 H Pulse Rate [ Apical] Respiratory 20 25 H 28 H Rate Blood Pressure 104/40 104/40 129/74 O2 Sat by Pulse 95 98 97 Oximetry O2 Sat by Pulse Oximetry [ Throughout] 06/30/18 06/30/18 06/30/18 01:30 01:40 01:50 Temperature Pulse Rate 100 H 110 H 84 Pulse Rate [ Apical] Respiratory 22 23 19 Rate Blood Pressure 99/45 99/45 140/73 O2 Sat by Pulse 99 99 99 Oximetry O2 Sat by Pulse Oximetry [ Throughout] 06/30/18 06/30/18 06/30/18 02:00 02:10 02:20 Temperature Pulse Rate 86 101 H 98 H Pulse Rate [ Apical] Respiratory 21 23 17 Rate Blood Pressure 144/71 144/71 140/73 O2 Sat by Pulse 100 98 96 Oximetry O2 Sat by Pulse Oximetry [ Throughout] 06/30/18 06/30/18 06/30/18 02:30 02:40 02:50 Temperature Pulse Rate 105 H 103 H 120 H Pulse Rate [ Apical] Respiratory 20 26 H 28 H Rate Blood Pressure 87/38 87/38 81/43 O2 Sat by Pulse 97 97 98 Oximetry O2 Sat by Pulse Oximetry [ Throughout] 06/30/18 06/30/18 06/30/18 03:00 03:10 03:20 Temperature 97.3 F L Pulse Rate 83 93 H 98 H Pulse Rate [ Apical] Respiratory 19 21 19 Rate Blood Pressure 127/65 127/65 81/43 O2 Sat by Pulse 100 99 97 Oximetry O2 Sat by Pulse Oximetry [ Throughout] 06/30/18 06/30/18 06/30/18 03:30 03:40 03:50 Temperature Pulse Rate 106 H 105 H 102 H Pulse Rate [ Apical] Respiratory 23 23 21 Rate Blood Pressure 92/42 92/42 102/38 O2 Sat by Pulse 95 98 96 Oximetry O2 Sat by Pulse Oximetry [ Throughout] 06/30/18 06/30/18 06/30/18 04:00 04:10 04:20 Temperature Pulse Rate 88 73 88 Pulse Rate [ 113 H Apical] Respiratory 24 22 24 Rate Blood Pressure 107/66 107/66 98/71 O2 Sat by Pulse 100 97 100 Oximetry O2 Sat by Pulse Oximetry [ Throughout] 06/30/18 06/30/18 06/30/18 04:30 04:40 04:50 Temperature Pulse Rate 79 94 H 82 Pulse Rate [ Apical] Respiratory 22 23 18 Rate Blood Pressure 107/66 127/66 136/73 O2 Sat by Pulse 97 100 100 Oximetry O2 Sat by Pulse Oximetry [ Throughout] 06/30/18 06/30/18 06/30/18 05:00 05:10 05:20 Temperature Pulse Rate 91 H 90 76 Pulse Rate [ Apical] Respiratory 25 H 24 17 Rate Blood Pressure 123/81 123/81 140/71 O2 Sat by Pulse 100 99 99 Oximetry O2 Sat by Pulse Oximetry [ Throughout] 06/30/18 06/30/18 06/30/18 05:30 05:40 05:50 Temperature Pulse Rate 89 92 H 82 Pulse Rate [ Apical] Respiratory 23 24 18 Rate Blood Pressure 154/75 154/75 136/79 O2 Sat by Pulse 100 100 100 Oximetry O2 Sat by Pulse Oximetry [ Throughout] 06/30/18 06/30/18 06/30/18 06:00 06:10 06:20 Temperature Pulse Rate 82 84 80 Pulse Rate [ Apical] Respiratory 19 20 17 Rate Blood Pressure 137/68 137/68 138/75 O2 Sat by Pulse 100 100 100 Oximetry O2 Sat by Pulse Oximetry [ Throughout] 06/30/18 06/30/18 06/30/18 06:30 06:40 06:50 Temperature Pulse Rate 110 H 86 107 H Pulse Rate [ Apical] Respiratory 24 20 18 Rate Blood Pressure 137/68 98/46 115/59 O2 Sat by Pulse 98 100 97 Oximetry O2 Sat by Pulse Oximetry [ Throughout] 06/30/18 06/30/18 06/30/18 07:00 07:10 07:20 Temperature Pulse Rate 106 H 103 H 85 Pulse Rate [ Apical] Respiratory 22 21 20 Rate Blood Pressure 100/56 100/56 91/52 O2 Sat by Pulse 95 96 100 Oximetry O2 Sat by Pulse Oximetry [ Throughout] 06/30/18 06/30/18 06/30/18 07:30 07:40 07:50 Temperature Pulse Rate 81 72 74 Pulse Rate [ Apical] Respiratory 20 19 19 Rate Blood Pressure 124/73 124/73 131/70 O2 Sat by Pulse 99 99 100 Oximetry O2 Sat by Pulse Oximetry [ Throughout] 04/06/30/18 06/30/18 08:00 08:10 08:20 Temperature Pulse Rate 81 81 85 Pulse Rate [ Apical] Respiratory 22 20 19 Rate Blood Pressure 133/74 133/74 149/75 O2 Sat by Pulse 98 99 100 Oximetry O2 Sat by Pulse Oximetry [ Throughout] 06/30/18 06/30/18 06/30/18 08:30 08:40 08:50 Temperature Pulse Rate 87 88 89 Pulse Rate [ Apical] Respiratory 21 18 24 Rate Blood Pressure 125/70 125/70 113/67 O2 Sat by Pulse 100 98 99 Oximetry O2 Sat by Pulse Oximetry [ Throughout] 06/30/18 06/30/18 06/30/18 09:00 09:10 09:15 Temperature 98.2 F Pulse Rate 87 80 85 Pulse Rate [ Apical] Respiratory 23 16 Rate Blood Pressure 134/62 134/62 116/59 O2 Sat by Pulse 99 98 Oximetry O2 Sat by Pulse 99 Oximetry [ Throughout] 06/30/18 06/30/18 06/30/18 09:20 09:30 09:40 Temperature Pulse Rate 83 99 H 109 H Pulse Rate [ Apical] Respiratory 22 24 30 H Rate Blood Pressure 116/59 110/61 110/61 O2 Sat by Pulse 100 94 100 Oximetry O2 Sat by Pulse Oximetry [ Throughout] 06/30/18 06/30/18 06/30/18 09:45 09:50 10:00 Temperature Pulse Rate 114 H 125 H 117 H Pulse Rate [ Apical] Respiratory 28 H 26 H Rate Blood Pressure 111/57 111/57 96/59 O2 Sat by Pulse 96 97 Oximetry O2 Sat by Pulse Oximetry [ Throughout] 06/30/18 06/30/18 06/30/18 10:10 10:15 10:20 Temperature Pulse Rate 114 H 124 H 127 H Pulse Rate [ Apical] Respiratory 26 H 32 H Rate Blood Pressure 108/56 110/58 110/58 O2 Sat by Pulse 97 Oximetry O2 Sat by Pulse Oximetry [ Throughout] 06/30/18 06/30/18 06/30/18 10:30 10:40 10:50 Temperature Pulse Rate 128 H 123 H 118 H Pulse Rate [ Apical] Respiratory 37 H 29 H 27 H Rate Blood Pressure 110/70 110/70 118/55 O2 Sat by Pulse 97 97 100 Oximetry O2 Sat by Pulse Oximetry [ Throughout] General appearance: Present: mild distress, obese - EENT Eyes: PERRL, EOM intact ENT: hearing intact - Neck Neck: supple, normal ROM - Respiratory Respiratory: bilateral: diminished - Cardiovascular Rhythm: irregularly irregular (and tachycardic) - Gastrointestinal General gastrointestinal: Present: soft, non-tender - Labs CBC & Chem 7: 06/30/18 06:32 06/30/18 06:32 Labs: Abnormal lab results 06/29/18 06/29/18 06/30/18 Range/Units 12:35 12:36 06:32 WBC 24.9 H (4.5-11.0) K/mm3 Seg Neuts % (Manual) 87.0 H (40.0-70.0) % Lymphocytes % (Manual) 4.0 L (13.4-35.0) % Seg Neutrophils # Man 21.7 H (1.8-7.7) K/mm3 Lymphocytes # (Manual) 1.0 L (1.2-5.4) K/mm3 Monocytes # (Manual) 1.2 H (0.0-0.8) K/mm3 Carbon Dioxide (22-30) mmol/L BUN (9-20) mg/dL Creatinine (0.8-1.5) mg/dL Glucose (75-100) mg/dL POC Glucose 177 H (70-105) Calcium (8.4-10.2) mg/dL Phosphorus (2.5-4.5) mg/dL Total Creatine Kinase 1859 H (55-170) units/L 06/30/18 06/30/18 Range/Units 06:32 08:53 WBC (4.5-11.0) K/mm3 Seg Neuts % (Manual) (40.0-70.0) % Lymphocytes % (Manual) (13.4-35.0) % Seg Neutrophils # Man (1.8-7.7) K/mm3 Lymphocytes # (Manual) (1.2-5.4) K/mm3 Monocytes # (Manual) (0.0-0.8) K/mm3 Carbon Dioxide 17 L (22-30) mmol/L BUN 124 H (9-20) mg/dL Creatinine 9.6 H (0.8-1.5) mg/dL Glucose 110 H (75-100) mg/dL POC Glucose (70-105) Calcium 8.1 L (8.4-10.2) mg/dL Phosphorus 7.10 H (2.5-4.5) mg/dL Total Creatine Kinase 1604 H (55-170) units/L Medications & Allergies - Medications Allergies/Adverse Reactions: Allergies No Known Allergies Allergy (Unverified 06/25/18 12:55) Home Medications: Home Medications Medication Instructions Recorded Confirmed Last Taken Type Amlodipine Besylate/Benazepril 1 each PO DAILY 06/25/18 06/25/18 Unknown History [Amlodipine-Benazepril 5-20 mg] Aspirin [Adult Aspirin Regimen] 81 mg PO DAILY 06/25/18 06/25/18 Unknown History AtorvaSTATin [Lipitor] 40 mg PO QHS 06/25/18 06/25/18 Unknown History Losartan [Cozaar] 100 mg PO QDAY 06/25/18 06/25/18 Unknown History Tamsulosin [Flomax] 0.4 mg PO QDAY 06/25/18 06/25/18 Unknown History Active Medications: Generic Name Dose Route Start Last Admin Trade Name Freq PRN Reason Stop Dose Admin Lipase/Protease/Amylase 1 each 06/28/18 13:[address] 10,500 Unit FEEDTUBE PRN PRN For Clogged Feeding Tube Heparin Sodium (Porcine) 5,000 unit 06/25/18 22:00 06/29/18 22:47 Heparin SUB-Q 5,000 unit Q12HR KATIE Administration Heparin Sodium (Porcine) 2,000 unit 06/29/18 16:30 06/29/18 16:53 Heparin 10,000 Units/10 Ml IV 2,000 unit KELI PRN Administration hemodialysis Norepinephrine 4 mg in 250 mls @ 7.5 mls/hr 06/27/18 22:00 06/30/18 04:01 Levophed Drip 4 Mg/Ns 250 Ml IV 26 mcg/min TITR KATIE 97.5 mls/hr Administration Protocol 2 MCG/MIN Sodium Chloride 100 mls @ 999 mls/hr 06/29/18 16:30 Nacl 0.9% IV KELI PRN Hypotension Morphine Sulfate 1 mg 06/28/18 11:46 06/28/18 19:25 Morphine IV 1 mg Q6H PRN Administration Chest Pain unrelieved by NTG Simple Syrup 15 ml 06/28/18 13:47 Simple Syrup FEEDTUBE PRN PRN Hypoglycemia Simple Syrup 30 ml 06/28/18 13:47 Simple Syrup FEEDTUBE PRN PRN Hypoglycemia Sodium Bicarbonate 325 mg 06/28/18 13:47 Sodium Bicarbonate FEEDTUBE PRN PRN For Clogged Feeding Tube Sodium Chloride 10 ml 06/25/18 22:00 06/29/18 22:50 Sodium Chloride Flush Syringe 10 Ml IV 10 ml BID KATIE Administration Sodium Chloride 10 ml 06/25/18 16:47 Sodium Chloride Flush Syringe 10 Ml IV PRN PRN LINE FLUSH Tamsulosin HCl 0.4 mg 06/26/18 10:00 06/29/18 16:32 Flomax PO Not Given QDAY KATIE
[2018-06-30] MEDS ORDERED: SYNTHROID IV ONE (11:21)
[2018-06-30] MEDS: SODIUM CHLORIDE FLUSH SYRINGE 10 ML IV SCH (12:47)
[2018-06-30] MEDS: HEPARIN SUB-Q SCH ×2 (13:00→22:30)
[2018-06-30] MEDS: FLOMAX PO SCH (13:00)
[2018-06-30] MEDS: HEPARIN 10,000 UNITS/10 ML IV PRN (13:06)
--- NOTE | 2018-06-30 13:09 | Progress Note ---
Assessment and Plan Assessment and plan: --Acute Renal failure/hypernatremia: nephrology initiated hemodialysis, sodium levels improved Hemodialysis per schedule --Septic shock; continue the levophed per protocol Cr Care value to the patient --Sepsis/lactic acidosis/leukocytosis; Continue empiric antibiotics, cultures negative to date ID evaluation if needed --Dyslipidemia; hold statin in view of rhabdomyolysis --Rhabdomyolysis CK 6427; hemodialysis, gentle hydration CK improved to 2987 -1859 --Bladder outlet obstruction; secondary to enlarged prostate Unable to pass Antoine catheter, urology evaluated the patient Continuous Antoine catheterization --Moderate malnutrition/hypoalbuminemia; nutrition supplements and supportive care --Abdominal aortic aneurysm 6.5 cm impending rupture; on CT abdomen, Dr. Mazariegos discussed with vascular , advised to closely monitor medical management, no indication for patient transfer .Vascular following --DVT prophylaxis; heparin renal dose D/W [facility] director /Physician [phone], Informed me and said that pt is DNR status and that the doccument would be faxed --DNR status Unable to contact family Critical care time 32 minutes History Interval history: Patient seen and examined medical records reviewed Patient remains hypotensive, pressor dependent Chronically and critically looking Vital signs reviewed Hospitalist Physical - Constitutional Vitals: Temp Pulse Resp BP Pulse Ox 98.2 F 109 H 24 102/63 91 06/30/18 13:00 06/30/18 13:00 06/30/18 13:00 06/30/18 13:00 06/30/18 13:00 General appearance: Present: mild distress, well-nourished, disheveled - EENT Eyes: Present: PERRL, EOM intact - Neck Neck: Present: supple, normal ROM - Respiratory Respiratory effort: normal Respiratory: bilateral: diminished, rhonchi, negative: rales, wheezing - Cardiovascular Rhythm: regular Heart Sounds: Present: S1 & S2 - Extremities Extremities: no ischemia, No edema - Abdominal General gastrointestinal: soft, non-tender, non-distended - Integumentary Integumentary: Present: clear, warm - Psychiatric Psychiatric: appropriate mood/affect, cooperative - Neurologic Neurologic: CNII-XII intact, moves all extremities Results - Labs CBC & Chem 7: 06/30/18 06:32 06/30/18 06:32 Labs: Laboratory Last Values WBC 24.9 K/mm3 (4.5-11.0) H 06/30/18 06:32 RBC 4.31 M/mm3 (3.65-5.03) 06/30/18 06:32 Hgb 12.6 gm/dl (11.8-15.2) 06/30/18 06:32 Hct 37.9 % (35.5-45.6) 06/30/18 06:32 MCV 88 fl (84-94) 06/30/18 06:32 MCH 29 pg (28-32) 06/30/18 06:32 MCHC 33 % (32-34) 06/30/18 06:32 RDW 15.2 % (13.2-15.2) 06/30/18 06:32 Plt Count 222 K/mm3 (140-440) 06/30/18 06:32 Add Manual Diff Complete 06/30/18 06:32 Total Counted 100 06/30/18 06:32 Seg Neutrophils % Director Orange 06/25/18 13:29 Seg Neuts % (Manual) 87.0 % (40.0-70.0) H 06/30/18 06:32 Band Neutrophils % 0 % 06/30/18 06:32 Lymphocytes % (Manual) 4.0 % (13.4-35.0) L 06/30/18 06:32 Reactive Lymphs % (Man) 0 % 06/30/18 06:32 Monocytes % (Manual) 5.0 % (0.0-7.3) 06/30/18 06:32 Eosinophils % (Manual) 1.0 % (0.0-4.3) 06/30/18 06:32 Basophils % (Manual) 0 % (0.0-1.8) 06/30/18 06:32 Metamyelocytes % 3.0 % 06/30/18 06:32 Myelocytes % 0 % 06/30/18 06:32 Promyelocytes % 0 % 06/30/18 06:32 Blast Cells % 0 % 06/30/18 06:32 Nucleated RBC % Not Reportable 06/30/18 06:32 Seg Neutrophils # Man 21.7 K/mm3 (1.8-7.7) H 06/30/18 06:32 Band Neutrophils # 0.0 K/mm3 06/30/18 06:32 Lymphocytes # (Manual) 1.0 K/mm3 (1.2-5.4) L 06/30/18 06:32 Abs React Lymphs (Man) 0.0 K/mm3 06/30/18 06:32 Monocytes # (Manual) 1.2 K/mm3 (0.0-0.8) H 06/30/18 06:32 Eosinophils # (Manual) 0.2 K/mm3 (0.0-0.4) 06/30/18 06:32 Basophils # (Manual) 0.0 K/mm3 (0.0-0.1) 06/30/18 06:32 Metamyelocytes # 0.7 K/mm3 06/30/18 06:32 Myelocytes # 0.0 K/mm3 06/30/18 06:32 Promyelocytes # 0.0 K/mm3 06/30/18 06:32 Blast Cells # 0.0 K/mm3 06/30/18 06:32 WBC Morphology Not Reportable 06/30/18 06:32 Hypersegmented Neuts Not Reportable 06/30/18 06:32 Hyposegmented Neuts Not Reportable 06/30/18 06:32 Hypogranular Neuts Not Reportable 06/30/18 06:32 Smudge Cells Not Reportable 06/30/18 06:32 Toxic Granulation Not Reportable 06/30/18 06:32 Toxic Vacuolation Not Reportable 06/30/18 06:32 Dohle Bodies Not Reportable 06/30/18 06:32 Pelger-Huet Anomaly Not Reportable 06/30/18 06:32 Palma Rods Not Reportable 06/30/18 06:32 Platelet Estimate Consistent w auto 06/30/18 06:32 Clumped Platelets Not Reportable 06/30/18 06:32 Plt Clumps, EDTA Not Reportable 06/30/18 06:32 Large Platelets Not Reportable 06/30/18 06:32 Giant Platelets Few 06/30/18 06:32 Platelet Satelliting Not Reportable 06/30/18 06:32 Plt Morphology Comment Not Reportable 06/30/18 06:32 RBC Morphology Not Reportable 06/30/18 06:32 Dimorphic RBCs Not Reportable 06/30/18 06:32 Polychromasia Not Reportable 06/30/18 06:32 Hypochromasia Not Reportable 06/30/18 06:32 Poikilocytosis Not Reportable 06/30/18 06:32 Anisocytosis Not Reportable 06/30/18 06:32 Microcytosis Not Reportable 06/30/18 06:32 Macrocytosis Not Reportable 06/30/18 06:32 Spherocytes Not Reportable 06/30/18 06:32 Pappenheimer Bodies Not Reportable 06/30/18 06:32 Sickle Cells Not Reportable 06/30/18 06:32 Target Cells 1+ 06/30/18 06:32 Tear Drop Cells Not Reportable 06/30/18 06:32 Ovalocytes Not Reportable 06/30/18 06:32 Helmet Cells Not Reportable 06/30/18 06:32 [place] Bodies Not Reportable 06/30/18 06:32 [place] Rings Not Reportable 06/30/18 06:32 [place] Cells Not Reportable 06/30/18 06:32 Bite Cells Not Reportable 06/30/18 06:32 Crenated Cell Not Reportable 06/30/18 06:32 Elliptocytes Not Reportable 06/30/18 06:32 Acanthocytes (Spur) Not Reportable 06/30/18 06:32 Rouleaux Not Reportable 06/30/18 06:32 Hemoglobin C Crystals Not Reportable 06/30/18 06:32 Schistocytes Not Reportable 06/30/18 06:32 Malaria parasites Not Reportable 06/30/18 06:32 Aniket Bodies Not Reportable 06/30/18 06:32 Hem Pathologist Commnt No 06/30/18 06:32 PT 18.8 Sec. (12.2-14.9) H 06/25/18 13:29 INR 1.47 (0.87-1.13) H 06/25/18 13:29 APTT 34.5 Sec. (24.2-36.6) 06/25/18 13:29 Sodium 145 mmol/L (137-145) 06/30/18 06:32 Potassium 4.4 mmol/L (3.6-5.0) 06/30/18 06:32 Chloride 104.2 mmol/L (98-107) 06/30/18 06:32 Carbon Dioxide 17 mmol/L (22-30) L 06/30/18 06:32 Anion Gap 28 mmol/L 06/30/18 06:32 BUN 124 mg/dL (9-20) H 06/30/18 06:32 Creatinine 9.6 mg/dL (0.8-1.5) H 06/30/18 06:32 Estimated GFR 6 ml/min 06/30/18 06:32 BUN/Creatinine Ratio 13 % 06/30/18 06:32 Glucose 110 mg/dL (75-100) H 06/30/18 06:32 POC Glucose 177 (70-105) H 06/29/18 12:36 Lactic Acid 2.00 mmol/L (0.7-2.0) 06/26/18 06:08 Calcium 8.1 mg/dL (8.4-10.2) L 06/30/18 06:32 Phosphorus 7.10 mg/dL (2.5-4.5) H 06/30/18 06:32 Total Bilirubin 3.20 mg/dL (0.1-1.2) H 06/25/18 13:13 AST 100 units/L (5-40) H 06/25/18 13:13 ALT 134 units/L (7-56) H 06/25/18 13:13 Alkaline Phosphatase 170 units/L (35-129) H 06/25/18 13:13 Ammonia 55.0 umol/L (25-60) 06/25/18 13:29 Total Creatine Kinase 1604 units/L (55-170) H 06/30/18 08:53 CK-MB (CK-2) 12.7 ng/mL (0.0-4.0) H 06/28/18 03:18 CK-MB (CK-2) Rel Index 0.4 (0-4) 06/28/18 03:18 Troponin T 0.085 ng/mL (0.00-0.029) H 06/25/18 13:29 Total Protein 8.0 g/dL (6.3-8.2) 06/25/18 13:13 Albumin 3.3 g/dL (3.9-5) L 06/25/18 13:13 Albumin/Globulin Ratio 0.7 % 06/25/18 13:13 Triglycerides 167 mg/dL (2-149) H 06/25/18 13:29 Cholesterol 183 mg/dL (50-199) 06/25/18 13:29 LDL Cholesterol Direct 118 mg/dL (50-130) 06/25/18 13:29 HDL Cholesterol 30 mg/dL (40-59) L 06/25/18 13:29 Cholesterol/HDL Ratio 6.10 % 06/25/18 13:29 Prostate Specific Ag 41.28 ng/mL (0.00-4.00) H 06/25/18 18:11 TSH 1.640 mlU/mL (0.270-4.200) 06/25/18 13:29 Urine Color Red (Yellow) 06/26/18 21:20 Urine Turbidity Turbid (Clear) 06/26/18 21:20 Urine pH 5.0 (5.0-7.0) 06/26/18 21:20 Ur Specific [place] 1.019 (1.003-1.030) 06/26/18 21:20 Urine Protein 100 mg/dl mg/dL (Negative) 06/26/18 21:20 Urine Glucose (UA) 50 mg/dL (Negative) 06/26/18 21:20 Urine Ketones Neg mg/dL (Negative) 06/26/18 21:20 Urine Blood Lg (Negative) 06/26/18 21:20 Urine Nitrite Neg (Negative) 06/26/18 21:20 Urine Bilirubin Neg (Negative) 06/26/18 21:20 Urine Urobilinogen 2.0 mg/dL (<2.0) 06/26/18 21:20 Ur Leukocyte Esterase Mod (Negative) 06/26/18 21:20 Urine WBC (Auto) > 182.0 /HPF (0.0-6.0) H 06/26/18 21:20 Urine RBC (Auto) > 182.0 /HPF (0.0-6.0) 06/26/18 21:20 Urine Bacteria (Auto) 4+ /HPF (Negative) 06/26/18 21:20 Urine WBC Clumps 3+ /HPF 06/26/18 21:20 Ur Transition Epith Cell 25 /HPF 06/26/18 21:20 Urine Creatinine 126.2 mg/dL (0.1-20.0) H 06/26/18 21:20 Protein/Creatinin Ratio 6.58 06/26/18 21:20 Urine Sodium 97 mmol/L 06/26/18 21:20 Urine Urea Nitrogen 252 06/26/18 21:20 Urine Total Protein 830 mg/dL (5-11.8) H 06/26/18 21:20 Urine Opiates Screen Presumptive negative 06/26/18 21:20 Urine Methadone Screen Presumptive negative 06/26/18 21:20 Ur Barbiturates Screen Presumptive negative 06/26/18 21:20 Ur Phencyclidine Scrn Presumptive negative 06/26/18 21:20 Ur Amphetamines Screen Presumptive negative 06/26/18 21:20 U Benzodiazepines Scrn Presumptive negative 06/26/18 21:20 Urine Cocaine Screen Presumptive negative 06/26/18 21:20 U Marijuana (THC) Screen Presumptive negative 06/26/18 21:20 Drugs of Abuse Note Disclamer 06/26/18 21:20 Plasma/Serum Alcohol < 0.01 % (0-0.07) 06/25/18 13:29 Hepatitis A IgM Ab Non-reactive (NonReactive) 06/25/18 16:45 Hep Bs Antigen Non-reactive (Negative) 06/25/18 16:45 Hep B Core IgM Ab Non-reactive (NonReactive) 06/25/18 16:45 Hepatitis C Antibody Non-reactive (NonReactive) 06/25/18 16:45 HIV 1&2 Antibody Rapid Non react (Non React) 06/27/18 13:44 HIV P24 Antigen Non react (Non React) 06/27/18 13:44 Active Medications - Current Medications Current Medications: Generic Name Dose Route Start Last Admin Trade Name Freq PRN Reason Stop Dose Admin Lipase/Protease/Amylase 1 each 06/28/18 13:[address] 10,500 Unit FEEDTUBE PRN PRN For Clogged Feeding Tube Heparin Sodium (Porcine) 5,000 unit 06/25/18 22:00 06/29/18 22:47 Heparin SUB-Q 5,000 unit Q12HR KATIE Administration Heparin Sodium (Porcine) 2,000 unit 06/29/18 16:30 06/30/18 13:06 Heparin 10,000 Units/10 Ml IV 2,000 unit KELI PRN Administration hemodialysis Norepinephrine 4 mg in 250 mls @ 7.5 mls/hr 06/27/18 22:00 06/30/18 04:01 Levophed Drip 4 Mg/Ns 250 Ml IV 26 mcg/min TITR KATIE 97.5 mls/hr Administration Protocol 2 MCG/MIN Sodium Chloride 100 mls @ 999 mls/hr 06/29/18 16:30 Nacl 0.9% IV KELI PRN Hypotension Levothyroxine Sodium 100 mcg 07/01/18 06:00 Synthroid IV DAILY@0600 KATIE Morphine Sulfate 1 mg 06/28/18 11:46 06/28/18 19:25 Morphine IV 1 mg Q6H PRN Administration Chest Pain unrelieved by NTG Simple Syrup 15 ml 06/28/18 13:47 Simple Syrup FEEDTUBE PRN PRN Hypoglycemia Simple Syrup 30 ml 06/28/18 13:47 Simple Syrup FEEDTUBE PRN PRN Hypoglycemia Sodium Bicarbonate 325 mg 06/28/18 13:47 Sodium Bicarbonate FEEDTUBE PRN PRN For Clogged Feeding Tube Sodium Chloride 10 ml 06/25/18 22:00 06/30/18 12:47 Sodium Chloride Flush Syringe 10 Ml IV 10 ml BID KATIE Administration Sodium Chloride 10 ml 06/25/18 16:47 Sodium Chloride Flush Syringe 10 Ml IV PRN PRN LINE FLUSH Tamsulosin HCl 0.4 mg 06/26/18 10:00 06/29/18 16:32 Flomax PO Not Given QDAY KATIE Nutrition/Malnutrition Assess - Dietary Evaluation Nutrition/Malnutrition Findings: Nutrition Notes Start: 06/28/18 13:18 Freq: Status: Active Protocol: Document 06/28/18 13:18 RM (Rec: 06/28/18 13:46 RM [id number]) Nutrition Notes Need for Assessment generated from: MD Order Initial or Follow up Assessment Current Diagnosis Sepsis,Hypertension, Hyperlipidemia Other Pertinent Diagnosis Hip PU, R shoulder PU, Nonverbal, Encephalopathy Current Diet Glucerna 1.2 at 80 ml/hr Labs/Tests Na 146, BG 168 Pertinent Medications Reviewed Height 5 ft 11 in Weight 86.5 kg [place] Body Weight (kg) 78.18 BMI 26.6 Subjective/Other Information Consulted for TF recommendation. Pt being held in ED for placement on 4th floor. NGT in place. Per progress note 06/28 HD needs are being assessed daily. Burn Absent Trauma Absent #1 Nutrition Diagnosis Inadequate oral intake Etiology encephalopathy As Evidenced by Signs and Symptoms NPO status, TF consult Is patient on ventilator? No Is Patient Ambulatory and/or Out of Bed No REE-([facility]-confined to bed) [phone] Calculation Used for Recommendations [facility] Additional Notes Protein Needs: 104-112g (1.2-1 .3g/kg) Fluid Needs: 1 ml/kcal Nutrition Intervention Nutrition Support: Nepro 1.8 at 45 ml/hr. Water flush of 250 mls q 4 hrs until hypernatremia resolves. Water flush of 200 mls q 4 hrs once hypernatremia resolves. Kcal 1,944 Protein (gm) 87 Goal #1 TF tolerance Goal #2 Meet at least 75% of calorie and protein needs via TF Anticipated Discharge Needs: Unable to determine at this time Follow-Up By: 06/30/18 Additional Comments Follow for new TF
[2018-07-01] MEDS: LEVOPHED DRIP 4 MG/NS 250 ML 4 MG/250 ML BAG IV SCH (00:39)
[2018-07-01] MEDS: SODIUM CHLORIDE FLUSH SYRINGE 10 ML IV SCH ×3 (00:43→21:32)
[2018-07-01] MEDS: MORPHINE IV PRN ×2 (02:45→21:29)
[2018-07-01 06:02] LABS: Hematocrit 36.6 % (35.5-45.6); Hemoglobin 11.9 gm/dl (11.8-15.2); Mean Corpuscular HGB Conc 33 % (32-34); Mean Corpuscular Volume 88 fl (84-94); Platelet Count 226 K/mm3 (140-440); Red Blood Count 4.15 M/mm3 (3.65-5.03); Red Cell Distribution Width 14.7 % (13.2-15.2)
[2018-07-01] MEDS: SYNTHROID IV SCH (06:21)
--- NOTE | 2018-07-01 09:01 | Progress Note ---
Assessment and Plan Severe renal failure, dialysis dependent Severe Renal failure, likely ATN from volume depletion, sepsis and rhabdo vs prerenal azotemia AG acidosis secondary to renal failure and lactic acidosis Metabolic encephalopathy secondary to sepsis but cannot r/o uremia, baseline is unknown Sepsis Rhabdomyolysis Elevated LFTs - labs pending this AM, improved UOP the last 24 hours - will assess dialysis needs daily and monitor renal recovery closely - Enlarged prostate- Dr. Vo, Urology onboard - Renal US- Renal disease. Simple cysts bilaterally. No Hydronephrosis - Renally dose medications - Strict I&O monitoring - Obtain daily weights - Monitor renal function closely - Assess dialysis needs daily Subjective Date of service: 07/01/18 Principal diagnosis: Severe Renal Failure, AMS Interval history: answer simple questions, tolerated HD yesterday Objective - Vital Signs Vital signs: Vital Signs - 12hr 06/30/18 06/30/18 06/30/18 21:15 21:30 21:46 Temperature Pulse Rate 98 H 98 H 102 H Pulse Rate [ From Monitor] Respiratory 22 20 24 Rate Blood Pressure 120/58 114/52 134/71 O2 Sat by Pulse 95 92 Oximetry 06/30/18 06/30/18 06/30/18 22:00 22:15 22:30 Temperature Pulse Rate 98 H 104 H 101 H Pulse Rate [ From Monitor] Respiratory 23 20 24 Rate Blood Pressure 115/54 122/72 113/77 O2 Sat by Pulse 94 94 98 Oximetry 06/30/18 06/30/18 06/30/18 22:45 23:00 23:02 Temperature Pulse Rate 98 H 97 H 95 H Pulse Rate [ From Monitor] Respiratory 24 19 19 Rate Blood Pressure 123/63 124/62 124/62 O2 Sat by Pulse 95 94 Oximetry 06/30/18 06/30/18 06/30/18 23:15 23:30 23:45 Temperature Pulse Rate 96 H 96 H 96 H Pulse Rate [ From Monitor] Respiratory 21 22 26 H Rate Blood Pressure 119/61 121/61 120/69 O2 Sat by Pulse 95 96 93 Oximetry 07/01/18 07/01/18 07/01/18 00:00 00:15 00:30 Temperature 98.7 F Pulse Rate 94 H 93 H 108 H Pulse Rate [ 94 H From Monitor] Respiratory 18 20 18 Rate Blood Pressure 115/57 118/60 94/53 O2 Sat by Pulse 95 95 95 Oximetry 07/01/18 07/01/18 07/01/18 00:45 01:00 01:15 Temperature Pulse Rate 97 H 100 H 97 H Pulse Rate [ From Monitor] Respiratory 21 18 20 Rate Blood Pressure 129/65 119/66 117/61 O2 Sat by Pulse 93 95 Oximetry 07/01/18 07/01/18 07/01/18 01:30 01:45 02:00 Temperature Pulse Rate 102 H 94 H 97 H Pulse Rate [ From Monitor] Respiratory 23 18 20 Rate Blood Pressure 106/69 105/60 116/62 O2 Sat by Pulse 92 Oximetry 07/01/18 07/01/18 07/01/18 02:15 02:30 02:45 Temperature Pulse Rate 98 H 98 H Pulse Rate [ From Monitor] Respiratory 20 25 H 28 H Rate Blood Pressure 104/64 116/62 O2 Sat by Pulse 94 100 Oximetry 07/01/18 07/01/18 07/01/18 02:46 03:00 03:15 Temperature Pulse Rate 100 H 94 H 91 H Pulse Rate [ From Monitor] Respiratory 23 18 16 Rate Blood Pressure 126/66 103/49 99/53 O2 Sat by Pulse 97 Oximetry 07/01/18 07/01/18 07/01/18 03:30 03:45 04:00 Temperature 98.3 F Pulse Rate 92 H 93 H 95 H Pulse Rate [ 88 From Monitor] Respiratory 17 19 19 Rate Blood Pressure 114/62 119/61 136/74 O2 Sat by Pulse 97 99 Oximetry 07/01/18 07/01/18 07/01/18 04:15 04:30 04:45 Temperature Pulse Rate 93 H 94 H 92 H Pulse Rate [ From Monitor] Respiratory 16 17 17 Rate Blood Pressure 111/74 114/58 126/66 O2 Sat by Pulse 100 Oximetry 07/01/18 07/01/18 07/01/18 05:00 05:16 05:30 Temperature Pulse Rate 94 H 95 H 96 H Pulse Rate [ From Monitor] Respiratory 19 21 19 Rate Blood Pressure 136/72 124/76 120/76 O2 Sat by Pulse 97 99 99 Oximetry 07/01/18 07/01/18 07/01/18 05:45 06:00 06:15 Temperature Pulse Rate 94 H 92 H 98 H Pulse Rate [ From Monitor] Respiratory 17 16 21 Rate Blood Pressure 115/66 119/60 114/69 O2 Sat by Pulse 97 Oximetry 07/01/18 07/01/18 07/01/18 06:30 06:45 07:00 Temperature Pulse Rate 91 H 94 H 93 H Pulse Rate [ From Monitor] Respiratory 16 15 17 Rate Blood Pressure 123/66 133/77 123/53 O2 Sat by Pulse 97 98 Oximetry 07/01/18 07/01/18 07/01/18 07:15 07:30 07:45 Temperature Pulse Rate 109 H 100 H 92 H Pulse Rate [ From Monitor] Respiratory 26 H 18 15 Rate Blood Pressure 130/81 112/54 109/67 O2 Sat by Pulse 97 98 99 Oximetry 07/01/18 07/01/18 07:57 08:00 Temperature Pulse Rate 94 H Pulse Rate [ From Monitor] Respiratory 18 Rate Blood Pressure 120/69 O2 Sat by Pulse 99 98 Oximetry - General Appearance General appearance: well-developed, well-nourished, appears stated age EENT: ATNC, PERRL, mucous membranes dry Neck: no JVD, no carotid bruit Respiratory: Present: Clear to Ascultation. Absent: Rales, Ronchi Cardiology: tachycardia, S1S2 Gastrointestinal: normoactive bowel sounds, no tenderness, no distended Integumentary: no rash, warm and dry Neurologic: no focal deficit Musculoskeletal: other (no edema in BLE) Psychiatric: cooperative - Lab 07/01/18 05:00 06/30/18 06:32 Most recent lab results Calcium 8.1 mg/dL (8.4-10.2) L 06/30/18 06:32 Phosphorus 7.10 mg/dL (2.5-4.5) H 06/30/18 06:32 Urine Creatinine 126.2 mg/dL (0.1-20.0) H 06/26/18 21:20 Urine Sodium 97 mmol/L 06/26/18 21:20 Urine Total Protein 830 mg/dL (5-11.8) H 06/26/18 21:20 Medications & Allergies - Medications Allergies/Adverse Reactions: Allergies No Known Allergies Allergy (Unverified 06/25/18 12:55) Home Medications: Home Medications Medication Instructions Recorded Confirmed Last Taken Type Amlodipine Besylate/Benazepril 1 each PO DAILY 06/25/18 06/25/18 Unknown History [Amlodipine-Benazepril 5-20 mg] Aspirin [Adult Aspirin Regimen] 81 mg PO DAILY 06/25/18 06/25/18 Unknown History AtorvaSTATin [Lipitor] 40 mg PO QHS 06/25/18 06/25/18 Unknown History Losartan [Cozaar] 100 mg PO QDAY 06/25/18 06/25/18 Unknown History Tamsulosin [Flomax] 0.4 mg PO QDAY 06/25/18 06/25/18 Unknown History Active Medications: Generic Name Dose Route Start Last Admin Trade Name Freq PRN Reason Stop Dose Admin Lipase/Protease/Amylase 1 each 06/28/18 13:[address] 10,500 Unit FEEDTUBE PRN PRN For Clogged Feeding Tube Heparin Sodium (Porcine) 5,000 unit 06/25/18 22:00 06/30/18 22:30 Heparin SUB-Q 5,000 unit Q12HR KATIE Administration Heparin Sodium (Porcine) 2,000 unit 06/29/18 16:30 06/30/18 13:06 Heparin 10,000 Units/10 Ml IV 2,000 unit KELI PRN Administration hemodialysis Norepinephrine 4 mg in 250 mls @ 7.5 mls/hr 06/27/18 22:00 07/01/18 00:39 Levophed Drip 4 Mg/Ns 250 Ml IV 12 mcg/min TITR KATIE 45 mls/hr Administration Protocol 2 MCG/MIN Sodium Chloride 100 mls @ 999 mls/hr 06/29/18 16:30 Nacl 0.9% IV KELI PRN Hypotension Levothyroxine Sodium 100 mcg 07/01/18 06:00 07/01/18 06:21 Synthroid IV 100 mcg DAILY@0600 KATIE Administration Morphine Sulfate 1 mg 06/28/18 11:46 07/01/18 02:45 Morphine IV 1 mg Q6H PRN Administration Chest Pain unrelieved by NTG Simple Syrup 15 ml 06/28/18 13:47 Simple Syrup FEEDTUBE PRN PRN Hypoglycemia Simple Syrup 30 ml 06/28/18 13:47 Simple Syrup FEEDTUBE PRN PRN Hypoglycemia Sodium Bicarbonate 325 mg 06/28/18 13:47 Sodium Bicarbonate FEEDTUBE PRN PRN For Clogged Feeding Tube Sodium Chloride 10 ml 06/25/18 22:00 07/01/18 00:43 Sodium Chloride Flush Syringe 10 Ml IV Not Given BID KATIE Sodium Chloride 10 ml 06/25/18 16:47 Sodium Chloride Flush Syringe 10 Ml IV PRN PRN LINE FLUSH Tamsulosin HCl 0.4 mg 06/26/18 10:00 06/30/18 13:00 Flomax PO 0.4 mg QDAY KATIE Administration
[2018-07-01 09:16] LABS: Calcium 7.6 mg/dL (8.4-10.2)
[2018-07-01] MEDS: HEPARIN SUB-Q SCH ×2 (09:23→21:28)
[2018-07-01] MEDS: FLOMAX PO SCH (09:23)
--- NOTE | 2018-07-01 09:30 | Progress Note ---
Assessment and Plan 78 y/o male with Rhabdo, acute renal failure, now requiring HD and hypotension, concern for Sepsis 1. Mental status better. Continue feeds and supplemental O2. 2. HD per renal, they will assess daily 3. Wean vasopressor therapy for MAPs >65, hopeful they may come off today. 4. AAA has been evaluated and addressed by vascular. No intervention is recommended at this time 5. Gave IV synthroid replacement. Can switch to PO soon 6. Overall prognosis is guarded Will discuss with primary talks had around the time of decision of AND. Need to reach out to family again as patient is not doing well and has high potential for a quick change clinically for the worse. CCT 31 minutes. Subjective Date of service: 07/01/18 Principal diagnosis: Severe Renal Failure, AMS Interval history: More alert today. HR better. BP better. Down to Levophed at 6 Objective - Constitutional Vitals: Vital Signs - 12hr 06/30/18 06/30/18 06/30/18 21:30 21:46 22:00 Temperature Pulse Rate 98 H 102 H 98 H Pulse Rate [ From Monitor] Respiratory 20 24 23 Rate Blood Pressure 114/52 134/71 115/54 O2 Sat by Pulse 95 92 94 Oximetry 06/30/18 06/30/18 06/30/18 22:15 22:30 22:45 Temperature Pulse Rate 104 H 101 H 98 H Pulse Rate [ From Monitor] Respiratory 20 24 24 Rate Blood Pressure 122/72 113/77 123/63 O2 Sat by Pulse 94 98 95 Oximetry 06/30/18 06/30/18 06/30/18 23:00 23:02 23:15 Temperature Pulse Rate 97 H 95 H 96 H Pulse Rate [ From Monitor] Respiratory 19 19 21 Rate Blood Pressure 124/62 124/62 119/61 O2 Sat by Pulse 94 95 Oximetry 06/30/18 06/30/18 07/01/18 23:30 23:45 00:00 Temperature 98.7 F Pulse Rate 96 H 96 H 94 H Pulse Rate [ 94 H From Monitor] Respiratory 22 26 H 18 Rate Blood Pressure 121/61 120/69 115/57 O2 Sat by Pulse 96 93 95 Oximetry 07/01/18 07/01/18 07/01/18 00:15 00:30 00:45 Temperature Pulse Rate 93 H 108 H 97 H Pulse Rate [ From Monitor] Respiratory 20 18 21 Rate Blood Pressure 118/60 94/53 129/65 O2 Sat by Pulse 95 95 93 Oximetry 07/01/18 07/01/18 07/01/18 01:00 01:15 01:30 Temperature Pulse Rate 100 H 97 H 102 H Pulse Rate [ From Monitor] Respiratory 18 20 23 Rate Blood Pressure 119/66 117/61 106/69 O2 Sat by Pulse 95 Oximetry 07/01/18 07/01/18 07/01/18 01:45 02:00 02:15 Temperature Pulse Rate 94 H 97 H 98 H Pulse Rate [ From Monitor] Respiratory 18 20 20 Rate Blood Pressure 105/60 116/62 104/64 O2 Sat by Pulse 92 94 Oximetry 07/01/18 07/01/18 07/01/18 02:30 02:45 02:46 Temperature Pulse Rate 98 H 100 H Pulse Rate [ From Monitor] Respiratory 25 H 28 H 23 Rate Blood Pressure 116/62 126/66 O2 Sat by Pulse 100 Oximetry 07/01/18 07/01/18 07/01/18 03:00 03:15 03:30 Temperature Pulse Rate 94 H 91 H 92 H Pulse Rate [ From Monitor] Respiratory 18 16 17 Rate Blood Pressure 103/49 99/53 114/62 O2 Sat by Pulse 97 97 Oximetry 07/01/18 07/01/18 07/01/18 03:45 04:00 04:15 Temperature 98.3 F Pulse Rate 93 H 95 H 93 H Pulse Rate [ 88 From Monitor] Respiratory 19 19 16 Rate Blood Pressure 119/61 136/74 111/74 O2 Sat by Pulse 99 100 Oximetry 07/01/18 07/01/18 07/01/18 04:30 04:45 05:00 Temperature Pulse Rate 94 H 92 H 94 H Pulse Rate [ From Monitor] Respiratory 17 17 19 Rate Blood Pressure 114/58 126/66 136/72 O2 Sat by Pulse 97 Oximetry 07/01/18 07/01/18 07/01/18 05:16 05:30 05:45 Temperature Pulse Rate 95 H 96 H 94 H Pulse Rate [ From Monitor] Respiratory 21 19 17 Rate Blood Pressure 124/76 120/76 115/66 O2 Sat by Pulse 99 99 Oximetry 07/01/18 07/01/18 07/01/18 06:00 06:15 06:30 Temperature Pulse Rate 92 H 98 H 91 H Pulse Rate [ From Monitor] Respiratory 16 21 16 Rate Blood Pressure 119/60 114/69 123/66 O2 Sat by Pulse 97 Oximetry 07/01/18 07/01/18 07/01/18 06:45 07:00 07:15 Temperature Pulse Rate 94 H 93 H 109 H Pulse Rate [ From Monitor] Respiratory 15 17 26 H Rate Blood Pressure 133/77 123/53 130/81 O2 Sat by Pulse 97 98 97 Oximetry 07/01/18 07/01/18 07/01/18 07:30 07:45 07:57 Temperature Pulse Rate 100 H 92 H Pulse Rate [ From Monitor] Respiratory 18 15 Rate Blood Pressure 112/54 109/67 O2 Sat by Pulse 98 99 99 Oximetry 07/01/18 08:00 Temperature Pulse Rate 94 H Pulse Rate [ From Monitor] Respiratory 18 Rate Blood Pressure 120/69 O2 Sat by Pulse 98 Oximetry General appearance: Present: no acute distress, obese - EENT Eyes: PERRL, EOM intact ENT: hearing intact, poor dentition - Neck Neck: supple - Respiratory Respiratory effort: normal Respiratory: bilateral: CTA - Cardiovascular Rhythm: regular - Labs CBC & Chem 7: 07/01/18 05:00 07/01/18 08:49 Labs: Abnormal lab results 06/30/18 07/01/18 07/01/18 Range/Units 08:53 00:14 05:00 WBC 26.0 H (4.5-11.0) K/mm3 Carbon Dioxide (22-30) mmol/L BUN (9-20) mg/dL Creatinine (0.8-1.5) mg/dL Glucose (75-100) mg/dL POC Glucose 158 H (70-105) Calcium (8.4-10.2) mg/dL Phosphorus (2.5-4.5) mg/dL Total Creatine Kinase 1604 H (55-170) units/L 07/01/18 07/01/18 07/01/18 Range/Units 05:00 06:23 08:49 WBC (4.5-11.0) K/mm3 Carbon Dioxide 19 L (22-30) mmol/L BUN 102 H (9-20) mg/dL Creatinine 8.9 H (0.8-1.5) mg/dL Glucose 152 H (75-100) mg/dL POC Glucose 187 H (70-105) Calcium 7.6 L (8.4-10.2) mg/dL Phosphorus 6.60 H (2.5-4.5) mg/dL Total Creatine Kinase 2151 H (55-170) units/L Medications & Allergies - Medications Allergies/Adverse Reactions: Allergies No Known Allergies Allergy (Unverified 06/25/18 12:55) Home Medications: Home Medications Medication Instructions Recorded Confirmed Last Taken Type Amlodipine Besylate/Benazepril 1 each PO DAILY 06/25/18 06/25/18 Unknown History [Amlodipine-Benazepril 5-20 mg] Aspirin [Adult Aspirin Regimen] 81 mg PO DAILY 06/25/18 06/25/18 Unknown History AtorvaSTATin [Lipitor] 40 mg PO QHS 06/25/18 06/25/18 Unknown History Losartan [Cozaar] 100 mg PO QDAY 06/25/18 06/25/18 Unknown History Tamsulosin [Flomax] 0.4 mg PO QDAY 06/25/18 06/25/18 Unknown History Active Medications: Generic Name Dose Route Start Last Admin Trade Name Freq PRN Reason Stop Dose Admin Lipase/Protease/Amylase 1 each 06/28/18 13:[address] 10,500 Unit FEEDTUBE PRN PRN For Clogged Feeding Tube Heparin Sodium (Porcine) 5,000 unit 06/25/18 22:00 07/01/18 09:23 Heparin SUB-Q 5,000 unit Q12HR KATIE Administration Heparin Sodium (Porcine) 2,000 unit 06/29/18 16:30 06/30/18 13:06 Heparin 10,000 Units/10 Ml IV 2,000 unit KELI PRN Administration hemodialysis Norepinephrine 4 mg in 250 mls @ 7.5 mls/hr 06/27/18 22:00 07/01/18 00:39 Levophed Drip 4 Mg/Ns 250 Ml IV 12 mcg/min TITR KATIE 45 mls/hr Administration Protocol 2 MCG/MIN Sodium Chloride 100 mls @ 999 mls/hr 06/29/18 16:30 Nacl 0.9% IV KELI PRN Hypotension Levothyroxine Sodium 100 mcg 07/01/18 06:00 07/01/18 06:21 Synthroid IV 100 mcg DAILY@0600 KATIE Administration Morphine Sulfate 1 mg 06/28/18 11:46 07/01/18 02:45 Morphine IV 1 mg Q6H PRN Administration Chest Pain unrelieved by NTG Simple Syrup 15 ml 06/28/18 13:47 Simple Syrup FEEDTUBE PRN PRN Hypoglycemia Simple Syrup 30 ml 06/28/18 13:47 Simple Syrup FEEDTUBE PRN PRN Hypoglycemia Sodium Bicarbonate 325 mg 06/28/18 13:47 Sodium Bicarbonate FEEDTUBE PRN PRN For Clogged Feeding Tube Sodium Chloride 10 ml 06/25/18 22:00 07/01/18 09:24 Sodium Chloride Flush Syringe 10 Ml IV 10 ml BID KATIE Administration Sodium Chloride 10 ml 06/25/18 16:47 Sodium Chloride Flush Syringe 10 Ml IV PRN PRN LINE FLUSH Tamsulosin HCl 0.4 mg 06/26/18 10:00 07/01/18 09:23 Flomax PO 0.4 mg QDAY KATIE Administration
[2018-07-01 10:02] LABS: Band Neutrophils # (Manual) 0.3 K/mm3; Basophils % (Manual) 0 % (0.0-1.8); Eosinophils % (Manual) 0 % (0.0-4.3); Myelocytes # (Manual) 0.5 K/mm3; Total Cells Counted 100
[2018-07-01 10:03] LABS: Large Platelets Few; Platelet Estimate Cons; Target Cells Few
--- NOTE | 2018-07-01 11:11 | Progress Note ---
Assessment and Plan Assessment and plan: 78-year-old male patient a resident of assisted living facility with history of hypertension, dyslipidemia ,hypothyroidism not on any medications ,BPH, superficial sacral decubitus ulcers was admitted through emergency room with altered level of consciousness and unresponsiveness .Workup in ER is consistent with sepsis, acute renal failure, hypernatremia, leukocytosis, dehydration, rhabdomyolysis, stage II decubitus ulcers and metabolic encephalopathy. Sepsis protocol initiated.patient was hypotensive requiring pressor's,admitted to ICU on pressors evaluated by critical care, nephrology initiated hemodialysis. Medications optimized, Today's more alert and awake being transferred out of ICU to [facility].Patient is off pressor and being transferred to [facility] for further evaluation and management, [facility] care directive reported that patient has a DO NOT RESUSCITATE document which even fax to the hospital Unable to contact family as patient is estranged and not in touch with any family members. Assessment and plan; --Acute Renal failure; nephrology initiated hemodialysis, HD per schedule --Septic shock; off levophed Closely monitor and adjust as needed --Sepsis/leukocytosis/received empiric antibiotics, cult negative to date.WBC trending down, monitor off antibiotics --Dyslipidemia; hold statin in view of rhabdomyolysis --Rhabdomyolysis CK 6427; hemodialysis, gentle hydration CK improved to [id number], statins on hold --Bladder outlet obstruction; secondary to enlarged prostate urology evaluated the patient, continuous Antoine catheterization Patient will follow urology outpatient --Moderate malnutrition/hypoalbuminemia; nutrition supplements and supportive care --Abdominal aortic aneurysm 6.5 cm impending rupture; on CT abdomen, Dr. Mazariegos discussed with vascular , advised to monitor, medical management, no indication for patient transfer .Vascular following --Stage II decubitus ulcers; continue wound care. --DVT prophylaxis; heparin renal dose PT or OT and rehabilitation Discharge planning per case management [facility] [phone], Informed me that pt is DNR status and that the doccument would be faxed --DNR status Unable to contact family Critical care time 31 minutes Patient is stable to be transferred out of ICU to [facility] today History Interval history: Patient seen and examined medical records reviewed Patient is more alert and awake today Responding to simple questions appropriately Off Levophed since morning Vital signs reviewed Hospitalist Physical - Constitutional Vitals: Temp Pulse Resp BP Pulse Ox 98.3 F 94 H 18 120/69 98 07/01/18 04:00 07/01/18 08:00 07/01/18 08:00 07/01/18 08:00 07/01/18 08:00 General appearance: Present: no acute distress, cachectic, disheveled - EENT Eyes: Present: PERRL, EOM intact - Neck Neck: Present: supple, normal ROM - Respiratory Respiratory effort: normal Respiratory: bilateral: diminished, rhonchi, negative: rales, wheezing - Cardiovascular Rhythm: regular Heart Sounds: Present: S1 & S2 - Extremities Extremities: no ischemia, No edema - Abdominal General gastrointestinal: soft, non-tender, non-distended, normal bowel sounds - Integumentary Integumentary: Present: clear, warm - Psychiatric Psychiatric: cooperative, other (more alert and awake today) - Neurologic Neurologic: moves all extremities, other (confused at times) Results - Labs CBC & Chem 7: 07/01/18 05:00 07/01/18 08:49 Labs: Laboratory Last Values WBC 26.0 K/mm3 (4.5-11.0) H 07/01/18 05:00 RBC 4.15 M/mm3 (3.65-5.03) 07/01/18 05:00 Hgb 11.9 gm/dl (11.8-15.2) 07/01/18 05:00 Hct 36.6 % (35.5-45.6) 07/01/18 05:00 MCV 88 fl (84-94) 07/01/18 05:00 MCH 29 pg (28-32) 07/01/18 05:00 MCHC 33 % (32-34) 07/01/18 05:00 RDW 14.7 % (13.2-15.2) 07/01/18 05:00 Plt Count 226 K/mm3 (140-440) 07/01/18 05:00 Add Manual Diff Complete 07/01/18 05:00 Total Counted 100 07/01/18 05:00 Seg Neutrophils % Lead Programmer Analyst 06/25/18 13:29 Seg Neuts % (Manual) 86.0 % (40.0-70.0) H 07/01/18 05:00 Band Neutrophils % 1.0 % 07/01/18 05:00 Lymphocytes % (Manual) 3.0 % (13.4-35.0) L 07/01/18 05:00 Reactive Lymphs % (Man) 1.0 % 07/01/18 05:00 Monocytes % (Manual) 4.0 % (0.0-7.3) 07/01/18 05:00 Eosinophils % (Manual) 0 % (0.0-4.3) 07/01/18 05:00 Basophils % (Manual) 0 % (0.0-1.8) 07/01/18 05:00 Metamyelocytes % 3.0 % 07/01/18 05:00 Myelocytes % 2.0 % 07/01/18 05:00 Promyelocytes % 0 % 07/01/18 05:00 Blast Cells % 0 % 07/01/18 05:00 Nucleated RBC % Not Reportable 07/01/18 05:00 Seg Neutrophils # Man 22.4 K/mm3 (1.8-7.7) H 07/01/18 05:00 Band Neutrophils # 0.3 K/mm3 07/01/18 05:00 Lymphocytes # (Manual) 0.8 K/mm3 (1.2-5.4) L 07/01/18 05:00 Abs React Lymphs (Man) 0.3 K/mm3 07/01/18 05:00 Monocytes # (Manual) 1.0 K/mm3 (0.0-0.8) H 07/01/18 05:00 Eosinophils # (Manual) 0.0 K/mm3 (0.0-0.4) 07/01/18 05:00 Basophils # (Manual) 0.0 K/mm3 (0.0-0.1) 07/01/18 05:00 Metamyelocytes # 0.8 K/mm3 07/01/18 05:00 Myelocytes # 0.5 K/mm3 07/01/18 05:00 Promyelocytes # 0.0 K/mm3 07/01/18 05:00 Blast Cells # 0.0 K/mm3 07/01/18 05:00 WBC Morphology Not Reportable 07/01/18 05:00 Hypersegmented Neuts Not Reportable 07/01/18 05:00 Hyposegmented Neuts Not Reportable 07/01/18 05:00 Hypogranular Neuts Not Reportable 07/01/18 05:00 Smudge Cells Not Reportable 07/01/18 05:00 Toxic Granulation Not Reportable 07/01/18 05:00 Toxic Vacuolation Not Reportable 07/01/18 05:00 Dohle Bodies Not Reportable 07/01/18 05:00 Pelger-Huet Anomaly Not Reportable 07/01/18 05:00 Palma Rods Not Reportable 07/01/18 05:00 Platelet Estimate Cons 07/01/18 05:00 Clumped Platelets Not Reportable 07/01/18 05:00 Plt Clumps, EDTA Not Reportable 07/01/18 05:00 Large Platelets Few 07/01/18 05:00 Giant Platelets Not Reportable 07/01/18 05:00 Platelet Satelliting Not Reportable 07/01/18 05:00 Plt Morphology Comment Not Reportable 07/01/18 05:00 RBC Morphology Not Reportable 07/01/18 05:00 Dimorphic RBCs Not Reportable 07/01/18 05:00 Polychromasia Not Reportable 07/01/18 05:00 Hypochromasia Not Reportable 07/01/18 05:00 Poikilocytosis Not Reportable 07/01/18 05:00 Anisocytosis Not Reportable 07/01/18 05:00 Microcytosis Not Reportable 07/01/18 05:00 Macrocytosis Not Reportable 07/01/18 05:00 Spherocytes Not Reportable 07/01/18 05:00 Pappenheimer Bodies Not Reportable 07/01/18 05:00 Sickle Cells Not Reportable 07/01/18 05:00 Target Cells Few 07/01/18 05:00 Tear Drop Cells Not Reportable 07/01/18 05:00 Ovalocytes Not Reportable 07/01/18 05:00 Helmet Cells Not Reportable 07/01/18 05:00 Quispe-Greenbrier Bodies Not Reportable 07/01/18 05:00 [place] Rings Not Reportable 07/01/18 05:00 Narciso Cells Not Reportable 07/01/18 05:00 Bite Cells Not Reportable 07/01/18 05:00 Crenated Cell Not Reportable 07/01/18 05:00 Elliptocytes Not Reportable 07/01/18 05:00 Acanthocytes (Spur) Not Reportable 07/01/18 05:00 Rouleaux Not Reportable 07/01/18 05:00 Hemoglobin C Crystals Not Reportable 07/01/18 05:00 Schistocytes Not Reportable 07/01/18 05:00 Malaria parasites Not Reportable 07/01/18 05:00 Aniket Bodies Not Reportable 07/01/18 05:00 Hem Pathologist Commnt No 07/01/18 05:00 PT 18.8 Sec. (12.2-14.9) H 06/25/18 13:29 INR 1.47 (0.87-1.13) H 06/25/18 13:29 APTT 34.5 Sec. (24.2-36.6) 06/25/18 13:29 Sodium 142 mmol/L (137-145) 07/01/18 08:49 Potassium 3.8 mmol/L (3.6-5.0) 07/01/18 08:49 Chloride 106.5 mmol/L (98-107) 07/01/18 08:49 Carbon Dioxide 19 mmol/L (22-30) L 07/01/18 08:49 Anion Gap 20 mmol/L 07/01/18 08:49 BUN 102 mg/dL (9-20) H 07/01/18 08:49 Creatinine 8.9 mg/dL (0.8-1.5) H 07/01/18 08:49 Estimated GFR 7 ml/min 07/01/18 08:49 BUN/Creatinine Ratio 11 % 07/01/18 08:49 Glucose 152 mg/dL (75-100) H 07/01/18 08:49 POC Glucose 187 (70-105) H 07/01/18 06:23 Lactic Acid 2.00 mmol/L (0.7-2.0) 06/26/18 06:08 Calcium 7.6 mg/dL (8.4-10.2) L 07/01/18 08:49 Phosphorus 6.60 mg/dL (2.5-4.5) H 07/01/18 08:49 Total Bilirubin 3.20 mg/dL (0.1-1.2) H 06/25/18 13:13 AST 100 units/L (5-40) H 06/25/18 13:13 ALT 134 units/L (7-56) H 06/25/18 13:13 Alkaline Phosphatase 170 units/L (35-129) H 06/25/18 13:13 Ammonia 55.0 umol/L (25-60) 06/25/18 13:29 Total Creatine Kinase 2151 units/L (55-170) H 07/01/18 05:00 CK-MB (CK-2) 12.7 ng/mL (0.0-4.0) H 06/28/18 03:18 CK-MB (CK-2) Rel Index 0.4 (0-4) 06/28/18 03:18 Troponin T 0.085 ng/mL (0.00-0.029) H 06/25/18 13:29 Total Protein 8.0 g/dL (6.3-8.2) 06/25/18 13:13 Albumin 3.3 g/dL (3.9-5) L 06/25/18 13:13 Albumin/Globulin Ratio 0.7 % 06/25/18 13:13 Triglycerides 167 mg/dL (2-149) H 06/25/18 13:29 Cholesterol 183 mg/dL (50-199) 06/25/18 13:29 LDL Cholesterol Direct 118 mg/dL (50-130) 06/25/18 13:29 HDL Cholesterol 30 mg/dL (40-59) L 06/25/18 13:29 Cholesterol/HDL Ratio 6.10 % 06/25/18 13:29 Prostate Specific Ag 41.28 ng/mL (0.00-4.00) H 06/25/18 18:11 TSH 1.640 mlU/mL (0.270-4.200) 06/25/18 13:29 Urine Color Red (Yellow) 06/26/18 21:20 Urine Turbidity Turbid (Clear) 06/26/18 21:20 Urine pH 5.0 (5.0-7.0) 06/26/18 21:20 Ur Specific [place] 1.019 (1.003-1.030) 06/26/18 21:20 Urine Protein 100 mg/dl mg/dL (Negative) 06/26/18 21:20 Urine Glucose (UA) 50 mg/dL (Negative) 06/26/18 21:20 Urine Ketones Neg mg/dL (Negative) 06/26/18 21:20 Urine Blood Lg (Negative) 06/26/18 21:20 Urine Nitrite Neg (Negative) 06/26/18 21:20 Urine Bilirubin Neg (Negative) 06/26/18 21:20 Urine Urobilinogen 2.0 mg/dL (<2.0) 06/26/18 21:20 Ur Leukocyte Esterase Mod (Negative) 06/26/18 21:20 Urine WBC (Auto) > 182.0 /HPF (0.0-6.0) H 06/26/18 21:20 Urine RBC (Auto) > 182.0 /HPF (0.0-6.0) 06/26/18 21:20 Urine Bacteria (Auto) 4+ /HPF (Negative) 06/26/18 21:20 Urine WBC Clumps 3+ /HPF 06/26/18 21:20 Ur Transition Epith Cell 25 /HPF 06/26/18 21:20 Urine Creatinine 126.2 mg/dL (0.1-20.0) H 06/26/18 21:20 Protein/Creatinin Ratio 6.58 06/26/18 21:20 Urine Sodium 97 mmol/L 06/26/18 21:20 Urine Urea Nitrogen 252 06/26/18 21:20 Urine Total Protein 830 mg/dL (5-11.8) H 06/26/18 21:20 Urine Opiates Screen Presumptive negative 06/26/18 21:20 Urine Methadone Screen Presumptive negative 06/26/18 21:20 Ur Barbiturates Screen Presumptive negative 06/26/18 21:20 Ur Phencyclidine Scrn Presumptive negative 06/26/18 21:20 Ur Amphetamines Screen Presumptive negative 06/26/18 21:20 U Benzodiazepines Scrn Presumptive negative 06/26/18 21:20 Urine Cocaine Screen Presumptive negative 06/26/18 21:20 U Marijuana (THC) Screen Presumptive negative 06/26/18 21:20 Drugs of Abuse Note Disclamer 06/26/18 21:20 Plasma/Serum Alcohol < 0.01 % (0-0.07) 06/25/18 13:29 Hepatitis A IgM Ab Non-reactive (NonReactive) 06/25/18 16:45 Hep Bs Antigen Non-reactive (Negative) 06/25/18 16:45 Hep B Core IgM Ab Non-reactive (NonReactive) 06/25/18 16:45 Hepatitis C Antibody Non-reactive (NonReactive) 06/25/18 16:45 HIV 1&2 Antibody Rapid Non react (Non React) 06/27/18 13:44 HIV P24 Antigen Non react (Non React) 06/27/18 13:44 Active Medications - Current Medications Current Medications: Generic Name Dose Route Start Last Admin Trade Name Freq PRN Reason Stop Dose Admin Lipase/Protease/Amylase 1 each 06/28/18 13:[address] 10,500 Unit FEEDTUBE PRN PRN For Clogged Feeding Tube Heparin Sodium (Porcine) 5,000 unit 06/25/18 22:00 07/01/18 09:23 Heparin SUB-Q 5,000 unit Q12HR KATIE Administration Heparin Sodium (Porcine) 2,000 unit 06/29/18 16:30 06/30/18 13:06 Heparin 10,000 Units/10 Ml IV 2,000 unit KELI PRN Administration hemodialysis Norepinephrine 4 mg in 250 mls @ 7.5 mls/hr 06/27/18 22:00 07/01/18 00:39 Levophed Drip 4 Mg/Ns 250 Ml IV 12 mcg/min TITR KATIE 45 mls/hr Administration Protocol 2 MCG/MIN Sodium Chloride 100 mls @ 999 mls/hr 06/29/18 16:30 Nacl 0.9% IV KELI PRN Hypotension Levothyroxine Sodium 100 mcg 07/01/18 06:00 07/01/18 06:21 Synthroid IV 100 mcg DAILY@0600 KATIE Administration Morphine Sulfate 1 mg 06/28/18 11:46 07/01/18 02:45 Morphine IV 1 mg Q6H PRN Administration Chest Pain unrelieved by NTG Simple Syrup 15 ml 06/28/18 13:47 Simple Syrup FEEDTUBE PRN PRN Hypoglycemia Simple Syrup 30 ml 06/28/18 13:47 Simple Syrup FEEDTUBE PRN PRN Hypoglycemia Sodium Bicarbonate 325 mg 06/28/18 13:47 Sodium Bicarbonate FEEDTUBE PRN PRN For Clogged Feeding Tube Sodium Chloride 10 ml 06/25/18 22:00 07/01/18 09:24 Sodium Chloride Flush Syringe 10 Ml IV 10 ml BID KATIE Administration Sodium Chloride 10 ml 06/25/18 16:47 Sodium Chloride Flush Syringe 10 Ml IV PRN PRN LINE FLUSH Tamsulosin HCl 0.4 mg 06/26/18 10:00 07/01/18 09:23 Flomax PO 0.4 mg QDAY KATIE Administration Nutrition/Malnutrition Assess - Dietary Evaluation Nutrition/Malnutrition Findings: Nutrition Notes Start: 06/28/18 13:18 Freq: Status: Active Protocol: Document 06/30/18 14:29 RM (Rec: 06/30/18 14:35 RM [id number]) Nutrition Notes Initial or Follow up Reassessment Current Diagnosis Sepsis,Hypertension, Hyperlipidemia Other Pertinent Diagnosis Hip PU, R shoulder PU, Nonverbal, Encephalopathy Current Diet Nepro at 45 ml/hr Labs/Tests Na 145, BG 110 Pertinent Medications Reviewed Height 5 ft 11 in Weight 86.5 kg [place] Body Weight (kg) 78.18 BMI 26.6 Subjective/Other Information Pt receiving HD in room at time of visit. Observed Nepro hanging but not infusing. Per nurse pt pulled out NG tube and it was replaced. Nurse plans to resume feeding and stated that pt was tolerating TF before tube was pulled out. Burn Absent Trauma Absent #1 Nutrition Diagnosis Inadequate oral intake Diagnosis Progress(for reassessment Continues documentation) Is patient on ventilator? No Is Patient Ambulatory and/or Out of Bed No REE-([facility]-confined to bed) [phone] Calculation Used for Recommendations [facility] Additional Notes Protein Needs: 104-112g (1.2-1 .3g/kg) Fluid Needs: 1 ml/kcal Nutrition Intervention Nutrition Support: Nepro 1.8 at 45 ml/hr. Water flush of 200 mls q 4 hrs . Kcal 1,944 Protein (gm) 87 Goal #1 TF tolerance Goal #2 Meet at least 75% of calorie and protein needs via TF Anticipated Discharge Needs: Unable to determine at this time Follow-Up By: 07/03/18 Additional Comments Follow for TF resume
--- NOTE | 2018-07-01 16:05 | XRay Report ---
PROCEDURE: XR ABDOMEN 1V AP TECHNIQUE: Abdominal radiograph, single view. HISTORY: dobhoff confirmation COMPARISONS: 06/30/2018 . FINDINGS: Dobbhoff tube is curled in the stomach, with the tip in the gastric fundus. If this is to be used for feeding it should be repositioned and advanced approximately 17 cm into the distal stomach. Bowel ga s pattern is nonobstructive. Small large bowel loops are diffusely air-filled, which could be related to ileus. IMPRESSION: Dobbhoff tube tip is in the gastric fundus. If this is to be used for feeding, it should be repositio sneha and advanced approximately 17 cm in the distal stomach. Diffusely air-filled mildly prominent small and large bowel loops could be related to ileus. This document is electronically signed by Jessie Spence MD., July 01 2018 04:03:38 PM ET
--- NOTE | 2018-07-01 18:28 | XRay Report ---
PROCEDURE: XR ABDOMEN 1V AP TECHNIQUE: Frontal view of the abdomen HISTORY: dobhoff confirmation COMPARISONS: X-ray abdomen performed earlier today FINDINGS: There is demonstration of a Dobbhoff type catheter with the tip projected in the region of the distal stomach or proximal duodenum. Again noted are the distended air-filled loops of bowel in the visualized portion of the abdomen. IMPRESSION: 1. Tip of Dobbhoff type catheter projected in the region of the distal stomach or proximal duodenum. 2. Distended air-filled loops of bowel in the visualized portion of the abdomen. This document is electronically signed by Karla Seymour MD., July 01 2018 06:25:49 PM ET
[2018-07-02 05:09] LABS: Hematocrit 35.5 % (35.5-45.6); Hemoglobin 11.9 gm/dl (11.8-15.2); Mean Corpuscular HGB Conc 34 % (32-34); Mean Corpuscular Volume 88 fl (84-94); Platelet Count 257 K/mm3 (140-440); Red Blood Count 4.05 M/mm3 (3.65-5.03); Red Cell Distribution Width 14.7 % (13.2-15.2)
[2018-07-02 05:29] LABS: Albumin 2.6 g/dL (3.9-5); Bilirubin,Direct 0.3 mg/dL (0-0.2)
[2018-07-02 05:32] LABS: Calcium 8.2 mg/dL (8.4-10.2)
[2018-07-02 06:38] LABS: Albumin 2.3 g/dL (3.8-4.8); Gamma Globulin 1.1 g/dL (0.8-1.7)
[2018-07-02 06:42] LABS: Basophils % (Manual) 0 % (0.0-1.8); Eosinophils % (Manual) 0 % (0.0-4.3); Total Cells Counted 100
[2018-07-02 06:43] LABS: Anisocytosis 1+; Crenated RBC 1+; Large Platelets 1+; Platelet Estimate Consistent w Auto
[2018-07-02] MEDS: SYNTHROID IV SCH (06:51)
[2018-07-02] MEDS: HEPARIN 10,000 UNITS/10 ML IV PRN (09:00)
[2018-07-02] MEDS ORDERED: NACL 0.9% 1000 ML 2,000 ML ONE (09:26)
[2018-07-02] MEDS ORDERED: HALDOL IM PRN (09:37)
--- NOTE | 2018-07-02 09:41 | Progress Note ---
Assessment and Plan Assessment and plan: 78-year-old male patient a resident of assisted living facility with history of hypertension, dyslipidemia ,hypothyroidism not on any medications ,BPH, superficial sacral decubitus ulcers was admitted through emergency room with altered level of consciousness and unresponsiveness .Workup in ER is consistent with sepsis, acute renal failure, hypernatremia, leukocytosis, dehydration, rhabdomyolysis, stage II decubitus ulcers and metabolic encephalopathy. Sepsis protocol initiated.patient was hypotensive requiring pressor's,admitted to ICU on pressors evaluated by critical care, nephrology initiated hemodialysis. Medications optimized, Today's more alert and awake being transferred out of ICU to [facility].Patient is off pressor and being transferred to [facility] for further evaluation and management, GEN care directive reported that patient has a DO NOT RESUSCITATE document which even fax to the hospital Unable to contact family as patient is estranged and not in touch with any family members. Assessment and plan; --Acute Renal failure; nephrology initiated hemodialysis, HD per schedule --Septic shock; off levophed Closely monitor and adjust as needed --Sepsis/leukocytosis/received empiric antibiotics, cult negative to date.WBC trending down, monitor off antibiotics --Dyslipidemia; hold statin in view of rhabdomyolysis --Rhabdomyolysis CK 6427; hemodialysis, gentle hydration CK improved to [id number] [id number], statins on hold --Bladder outlet obstruction; secondary to enlarged prostate urology evaluated the patient, continuous Antoine catheterization Patient will follow urology outpatient --Moderate malnutrition/hypoalbuminemia; nutrition supplements and supportive care --Abdominal aortic aneurysm 6.5 cm impending rupture; on CT abdomen, Dr. Mazariegos discussed with vascular , advised to monitor, medical management, no indication for patient transfer .Vascular following --Stage II decubitus ulcers; continue wound care. --DVT prophylaxis; heparin renal dose PT or OT and rehabilitation Discharge planning per case management D/W [facility] director /Physician [phone], Informed me that pt is DNR status and that the doccument would be faxed --DNR status Unable to contact family Critical care time 31 minutes Patient is stable to be transferred out of ICU to [facility] today Hospitalist Physical - Constitutional Vitals: Temp Pulse Resp BP Pulse Ox 97.2 F L 104 H 20 93/48 97 07/02/18 08:00 07/02/18 04:00 07/01/18 18:16 07/01/18 18:16 07/02/18 07:15 General appearance: Present: no acute distress, cachectic, disheveled Results - Labs CBC & Chem 7: 07/02/18 04:39 07/02/18 04:39 Labs: Laboratory Last Values WBC 23.2 K/mm3 (4.5-11.0) H 07/02/18 04:39 RBC 4.05 M/mm3 (3.65-5.03) 07/02/18 04:39 Hgb 11.9 gm/dl (11.8-15.2) 07/02/18 04:39 Hct 35.5 % (35.5-45.6) 07/02/18 04:39 MCV 88 fl (84-94) 07/02/18 04:39 MCH 29 pg (28-32) 07/02/18 04:39 MCHC 34 % (32-34) 07/02/18 04:39 RDW 14.7 % (13.2-15.2) 07/02/18 04:39 Plt Count 257 K/mm3 (140-440) 07/02/18 04:39 Add Manual Diff Complete 07/02/18 04:39 Total Counted 100 07/02/18 04:39 Seg Neutrophils % Volunteer Manager 06/25/18 13:29 Seg Neuts % (Manual) 92.0 % (40.0-70.0) H 07/02/18 04:39 Band Neutrophils % 0 % 07/02/18 04:39 Lymphocytes % (Manual) 2.0 % (13.4-35.0) L 07/02/18 04:39 Reactive Lymphs % (Man) 0 % 07/02/18 04:39 Monocytes % (Manual) 5.0 % (0.0-7.3) 07/02/18 04:39 Eosinophils % (Manual) 0 % (0.0-4.3) 07/02/18 04:39 Basophils % (Manual) 0 % (0.0-1.8) 07/02/18 04:39 Metamyelocytes % 1.0 % 07/02/18 04:39 Myelocytes % 0 % 07/02/18 04:39 Promyelocytes % 0 % 07/02/18 04:39 Blast Cells % 0 % 07/02/18 04:39 Nucleated RBC % Not Reportable 07/02/18 04:39 Seg Neutrophils # Man 21.3 K/mm3 (1.8-7.7) H 07/02/18 04:39 Band Neutrophils # 0.0 K/mm3 07/02/18 04:39 Lymphocytes # (Manual) 0.5 K/mm3 (1.2-5.4) L 07/02/18 04:39 Abs React Lymphs (Man) 0.0 K/mm3 07/02/18 04:39 Monocytes # (Manual) 1.2 K/mm3 (0.0-0.8) H 07/02/18 04:39 Eosinophils # (Manual) 0.0 K/mm3 (0.0-0.4) 07/02/18 04:39 Basophils # (Manual) 0.0 K/mm3 (0.0-0.1) 07/02/18 04:39 Metamyelocytes # 0.2 K/mm3 07/02/18 04:39 Myelocytes # 0.0 K/mm3 07/02/18 04:39 Promyelocytes # 0.0 K/mm3 07/02/18 04:39 Blast Cells # 0.0 K/mm3 07/02/18 04:39 WBC Morphology Not Reportable 07/02/18 04:39 Hypersegmented Neuts Not Reportable 07/02/18 04:39 Hyposegmented Neuts Not Reportable 07/02/18 04:39 Hypogranular Neuts Not Reportable 07/02/18 04:39 Smudge Cells Not Reportable 07/02/18 04:39 Toxic Granulation Not Reportable 07/02/18 04:39 Toxic Vacuolation Not Reportable 07/02/18 04:39 Dohle Bodies Not Reportable 07/02/18 04:39 Pelger-Huet Anomaly Not Reportable 07/02/18 04:39 Palma Rods Not Reportable 07/02/18 04:39 Platelet Estimate Consistent w auto 07/02/18 04:39 Clumped Platelets Not Reportable 07/02/18 04:39 Plt Clumps, EDTA Not Reportable 07/02/18 04:39 Large Platelets 1+ 07/02/18 04:39 Giant Platelets Not Reportable 07/02/18 04:39 Platelet Satelliting Not Reportable 07/02/18 04:39 Plt Morphology Comment Not Reportable 07/02/18 04:39 RBC Morphology Not Reportable 07/02/18 04:39 Dimorphic RBCs Not Reportable 07/02/18 04:39 Polychromasia Not Reportable 07/02/18 04:39 Hypochromasia Not Reportable 07/02/18 04:39 Poikilocytosis Not Reportable 07/02/18 04:39 Anisocytosis 1+ 07/02/18 04:39 Microcytosis Not Reportable 07/02/18 04:39 Macrocytosis Not Reportable 07/02/18 04:39 Spherocytes Not Reportable 07/02/18 04:39 Pappenheimer Bodies Not Reportable 07/02/18 04:39 Sickle Cells Not Reportable 07/02/18 04:39 Target Cells Not Reportable 07/02/18 04:39 Tear Drop Cells Not Reportable 07/02/18 04:39 Ovalocytes Not Reportable 07/02/18 04:39 Helmet Cells Not Reportable 07/02/18 04:39 Quis[place] Bodies Not Reportable 07/02/18 04:39 Fraser Rings Not Reportable 07/02/18 04:39 Narciso Cells Not Reportable 07/02/18 04:39 Bite Cells Not Reportable 07/02/18 04:39 Crenated Cell 1+ 07/02/18 04:39 Elliptocytes Not Reportable 07/02/18 04:39 Acanthocytes (Spur) Not Reportable 07/02/18 04:39 Rouleaux Not Reportable 07/02/18 04:39 Hemoglobin C Crystals Not Reportable 07/02/18 04:39 Schistocytes Not Reportable 07/02/18 04:39 Malaria parasites Not Reportable 07/02/18 04:39 Aniket Bodies Not Reportable 07/02/18 04:39 Hem Pathologist Commnt No 07/02/18 04:39 PT 18.8 Sec. (12.2-14.9) H 06/25/18 13:29 INR 1.47 (0.87-1.13) H 06/25/18 13:29 APTT 34.5 Sec. (24.2-36.6) 06/25/18 13:29 Sodium 146 mmol/L (137-145) H 07/02/18 04:39 Potassium 4.2 mmol/L (3.6-5.0) 07/02/18 04:39 Chloride 105.1 mmol/L (98-107) 07/02/18 04:39 Carbon Dioxide 18 mmol/L (22-30) L 07/02/18 04:39 Anion Gap 27 mmol/L 07/02/18 04:39 BUN 134 mg/dL (9-20) H 07/02/18 04:39 Creatinine 10.4 mg/dL (0.8-1.5) H 07/02/18 04:39 Estimated GFR 6 ml/min 07/02/18 04:39 BUN/Creatinine Ratio 13 % 07/02/18 04:39 Glucose 151 mg/dL (75-100) H 07/02/18 04:39 POC Glucose 118 (70-105) H 07/01/18 12:04 Lactic Acid 2.00 mmol/L (0.7-2.0) 06/26/18 06:08 Calcium 8.2 mg/dL (8.4-10.2) L 07/02/18 04:39 Phosphorus 7.80 mg/dL (2.5-4.5) H 07/02/18 04:39 Total Bilirubin 0.60 mg/dL (0.1-1.2) 07/02/18 04:39 Direct Bilirubin 0.3 mg/dL (0-0.2) H 07/02/18 04:39 Indirect Bilirubin 0.3 mg/dL 07/02/18 04:39 AST 117 units/L (5-40) H 07/02/18 04:39 ALT 138 units/L (7-56) H 07/02/18 04:39 Alkaline Phosphatase 283 units/L (35-129) H 07/02/18 04:39 Ammonia 55.0 umol/L (25-60) 06/25/18 13:29 Total Creatine Kinase 1516 units/L (55-170) H 07/02/18 04:39 CK-MB (CK-2) 12.7 ng/mL (0.0-4.0) H 06/28/18 03:18 CK-MB (CK-2) Rel Index 0.4 (0-4) 06/28/18 03:18 Troponin T 0.085 ng/mL (0.00-0.029) H 06/25/18 13:29 Serum Total Protein 6.2 g/dL (6.1-8.1) 06/27/18 11:55 Total Protein 6.4 g/dL (6.3-8.2) 07/02/18 04:39 Albumin 2.6 g/dL (3.9-5) L 07/02/18 04:39 Albumin/Globulin Ratio 0.7 % 07/02/18 04:39 Vxofe-2-Mvjkiytwz 0.7 g/dL (0.2-0.3) H 06/27/18 11:55 Bbzrr-7-Jriqewsmj 1.3 g/dL (0.5-0.9) H 06/27/18 11:55 Beta Globulins 0.4 g/dL (0.2-0.5) 06/27/18 11:55 Gamma Globulins 1.1 g/dL (0.8-1.7) 06/27/18 11:55 Abnorm Protein Band 1 see below 06/27/18 11:55 PEP Interpretation see below H 06/27/18 11:55 Triglycerides 167 mg/dL (2-149) H 06/25/18 13:29 Cholesterol 183 mg/dL (50-199) 06/25/18 13:29 LDL Cholesterol Direct 118 mg/dL (50-130) 06/25/18 13:29 HDL Cholesterol 30 mg/dL (40-59) L 06/25/18 13:29 Cholesterol/HDL Ratio 6.10 % 06/25/18 13:29 Prostate Specific Ag 41.28 ng/mL (0.00-4.00) H 06/25/18 18:11 TSH 1.640 mlU/mL (0.270-4.200) 06/25/18 13:29 Urine Color Red (Yellow) 06/26/18 21:20 Urine Turbidity Turbid (Clear) 06/26/18 21:20 Urine pH 5.0 (5.0-7.0) 06/26/18 21:20 Ur Specific [place] 1.019 (1.003-1.030) 06/26/18 21:20 Urine Protein 100 mg/dl mg/dL (Negative) 06/26/18 21:20 Urine Glucose (UA) 50 mg/dL (Negative) 06/26/18 21:20 Urine Ketones Neg mg/dL (Negative) 06/26/18 21:20 Urine Blood Lg (Negative) 06/26/18 21:20 Urine Nitrite Neg (Negative) 06/26/18 21:20 Urine Bilirubin Neg (Negative) 06/26/18 21:20 Urine Urobilinogen 2.0 mg/dL (<2.0) 06/26/18 21:20 Ur Leukocyte Esterase Mod (Negative) 06/26/18 21:20 Urine WBC (Auto) > 182.0 /HPF (0.0-6.0) H 06/26/18 21:20 Urine RBC (Auto) > 182.0 /HPF (0.0-6.0) 06/26/18 21:20 Urine Bacteria (Auto) 4+ /HPF (Negative) 06/26/18 21:20 Urine WBC Clumps 3+ /HPF 06/26/18 21:20 Ur Transition Epith Cell 25 /HPF 06/26/18 21:20 Urine Creatinine 126.2 mg/dL (0.1-20.0) H 06/26/18 21:20 Protein/Creatinin Ratio 6.58 06/26/18 21:20 Urine Sodium 97 mmol/L 06/26/18 21:20 Urine Urea Nitrogen 252 06/26/18 21:20 Urine Total Protein 830 mg/dL (5-11.8) H 06/26/18 21:20 Urine Opiates Screen Presumptive negative 06/26/18 21:20 Urine Methadone Screen Presumptive negative 06/26/18 21:20 Ur Barbiturates Screen Presumptive negative 06/26/18 21:20 Ur Phencyclidine Scrn Presumptive negative 06/26/18 21:20 Ur Amphetamines Screen Presumptive negative 06/26/18 21:20 U Benzodiazepines Scrn Presumptive negative 06/26/18 21:20 Urine Cocaine Screen Presumptive negative 06/26/18 21:20 U Marijuana (THC) Screen Presumptive negative 06/26/18 21:20 Drugs of Abuse Note Disclamer 06/26/18 21:20 Plasma/Serum Alcohol < 0.01 % (0-0.07) 06/25/18 13:29 Tot Complement (CH50) >60 U/mL (31-60) H 06/27/18 13:44 Hepatitis A IgM Ab Non-reactive (NonReactive) 06/25/18 16:45 Hep Bs Antigen Non-reactive (Negative) 06/25/18 16:45 Hep B Core IgM Ab Non-reactive (NonReactive) 06/25/18 16:45 Hepatitis C Antibody Non-reactive (NonReactive) 06/25/18 16:45 HIV 1&2 Antibody Rapid Non react (Non React) 06/27/18 13:44 HIV P24 Antigen Non react (Non React) 06/27/18 13:44 Active Medications - Current Medications Current Medications: Generic Name Dose Route Start Last Admin Trade Name Freq PRN Reason Stop Dose Admin Lipase/Protease/Amylase 1 each 06/28/18 13:[address] 10,500 Unit FEEDTUBE PRN PRN For Clogged Feeding Tube Heparin Sodium (Porcine) 5,000 unit 06/25/18 22:00 07/01/18 21:28 Heparin SUB-Q 5,000 unit Q12HR KATIE Administration Heparin Sodium (Porcine) 2,000 unit 06/29/18 16:30 06/30/18 13:06 Heparin 10,000 Units/10 Ml IV 2,000 unit KELI PRN Administration hemodialysis Sodium Chloride 100 mls @ 999 mls/hr 06/29/18 16:30 Nacl 0.9% IV KELI PRN Hypotension Levothyroxine Sodium 100 mcg 07/01/18 06:00 07/02/18 06:51 Synthroid IV 100 mcg DAILY@0600 KATIE Administration Morphine Sulfate 1 mg 06/28/18 11:46 07/01/18 21:29 Morphine IV 1 mg Q6H PRN Administration Chest Pain unrelieved by NTG Simple Syrup 15 ml 06/28/18 13:47 Simple Syrup FEEDTUBE PRN PRN Hypoglycemia Simple Syrup 30 ml 06/28/18 13:47 Simple Syrup FEEDTUBE PRN PRN Hypoglycemia Sodium Bicarbonate 325 mg 06/28/18 13:47 Sodium Bicarbonate FEEDTUBE PRN PRN For Clogged Feeding Tube Sodium Chloride 10 ml 06/25/18 22:00 07/01/18 21:32 Sodium Chloride Flush Syringe 10 Ml IV 10 ml BID KATIE Administration Sodium Chloride 10 ml 06/25/18 16:47 Sodium Chloride Flush Syringe 10 Ml IV PRN PRN LINE FLUSH Tamsulosin HCl 0.4 mg 06/26/18 10:00 07/01/18 09:23 Flomax PO 0.4 mg QDAY KATIE Administration Nutrition/Malnutrition Assess - Dietary Evaluation Nutrition/Malnutrition Findings: Nutrition Notes Start: 06/28/18 13:18 Freq: Status: Active Protocol: Document 06/30/18 14:29 RM (Rec: 06/30/18 14:35 RM [id number]) Nutrition Notes Initial or Follow up Reassessment Current Diagnosis Sepsis,Hypertension, Hyperlipidemia Other Pertinent Diagnosis Hip PU, R shoulder PU, Nonverbal, Encephalopathy Current Diet Nepro at 45 ml/hr Labs/Tests Na 145, BG 110 Pertinent Medications Reviewed Height 5 ft 11 in Weight 86.5 kg [place] Body Weight (kg) 78.18 BMI 26.6 Subjective/Other Information Pt receiving HD in room at time of visit. Observed Nepro hanging but not infusing. Per nurse pt pulled out NG tube and it was replaced. Nurse plans to resume feeding and stated that pt was tolerating TF before tube was pulled out. Burn Absent Trauma Absent #1 Nutrition Diagnosis Inadequate oral intake Diagnosis Progress(for reassessment Continues documentation) Is patient on ventilator? No Is Patient Ambulatory and/or Out of Bed No REE-([place]-confined to bed) [phone] [facility] Additional Notes Protein Needs: 104-112g (1.2-1 .3g/kg) Fluid Needs: 1 ml/kcal Nutrition Intervention Nutrition Support: Nepro 1.8 at 45 ml/hr. Water flush of 200 mls q 4 hrs . Kcal 1,944 Protein (gm) 87 Goal #1 TF tolerance Goal #2 Meet at least 75% of calorie and protein needs via TF Anticipated Discharge Needs: Unable to determine at this time Follow-Up By: 07/03/18 Additional Comments Follow for TF resume
--- NOTE | 2018-07-02 11:04 | Progress Note ---
Assessment and Plan Severe renal failure, dialysis dependent Severe Renal failure, likely ATN from volume depletion, sepsis and rhabdo vs prerenal azotemia Atrial Fibrillation with RVR AG acidosis secondary to renal failure and lactic acidosis Metabolic encephalopathy secondary to sepsis but cannot r/o uremia, baseline is unknown Sepsis Rhabdomyolysis Elevated LFTs - will cont daily dialysis, no signs of kidney function recovery - will assess dialysis needs daily and monitor renal recovery closely - Enlarged prostate- Dr. Vo, Urology onboard - Renal US- Renal disease. Simple cysts bilaterally. No Hydronephrosis - Renally dose medications - Strict I&O monitoring - Obtain daily weights - Monitor renal function closely - Assess dialysis needs daily Subjective Date of service: 07/02/18 Principal diagnosis: Severe Renal Failure, AMS Interval history: seen during HD, follow simple commands, no family at bedside Objective - Vital Signs Vital signs: Vital Signs - 12hr 07/02/18 07/02/18 07/02/18 00:00 04:00 07:15 Temperature 98.0 F 98.8 F Pulse Rate 105 H 104 H O2 Sat by Pulse 97 Oximetry 07/02/18 08:00 Temperature 97.2 F L Pulse Rate O2 Sat by Pulse Oximetry - General Appearance General appearance: well-developed, well-nourished EENT: ATNC, PERRL, mucous membranes moist Neck: no JVD, no carotid bruit Respiratory: Present: Clear to Ascultation. Absent: Rales, Ronchi Cardiology: irregular, tachycardia Gastrointestinal: normoactive bowel sounds, no tenderness, no distended Integumentary: no rash, warm and dry Neurologic: other (follow simple commansd) Musculoskeletal: other Psychiatric: other (follows simple commands) - Lab 07/02/18 04:39 07/02/18 04:39 Most recent lab results Calcium 8.2 mg/dL (8.4-10.2) L 07/02/18 04:39 Phosphorus 7.80 mg/dL (2.5-4.5) H 07/02/18 04:39 Urine Creatinine 126.2 mg/dL (0.1-20.0) H 06/26/18 21:20 Urine Sodium 97 mmol/L 06/26/18 21:20 Urine Total Protein 830 mg/dL (5-11.8) H 06/26/18 21:20 Medications & Allergies - Medications Allergies/Adverse Reactions: Allergies No Known Allergies Allergy (Unverified 06/25/18 12:55) Home Medications: Home Medications Medication Instructions Recorded Confirmed Last Taken Type Amlodipine Besylate/Benazepril 1 each PO DAILY 06/25/18 06/25/18 Unknown History [Amlodipine-Benazepril 5-20 mg] Aspirin [Adult Aspirin Regimen] 81 mg PO DAILY 06/25/18 06/25/18 Unknown History AtorvaSTATin [Lipitor] 40 mg PO QHS 06/25/18 06/25/18 Unknown History Losartan [Cozaar] 100 mg PO QDAY 06/25/18 06/25/18 Unknown History Tamsulosin [Flomax] 0.4 mg PO QDAY 06/25/18 06/25/18 Unknown History Active Medications: Generic Name Dose Route Start Last Admin Trade Name Freq PRN Reason Stop Dose Admin Lipase/Protease/Amylase 1 each 06/28/18 13:47 Pancreaze 10,500 Unit FEEDTUBE PRN PRN For Clogged Feeding Tube Haloperidol Lactate 2 mg 07/02/18 09:37 07/02/18 09:50 Haldol IM 2 mg Q6H PRN Administration Agitation Heparin Sodium (Porcine) 5,000 unit 06/25/18 22:00 07/01/18 21:28 Heparin SUB-Q 5,000 unit Q12HR KATIE Administration Heparin Sodium (Porcine) 2,000 unit 06/29/18 16:30 06/30/18 13:06 Heparin 10,000 Units/10 Ml IV 2,000 unit KELI PRN Administration hemodialysis Sodium Chloride 100 mls @ 999 mls/hr 06/29/18 16:30 Nacl 0.9% IV KELI PRN Hypotension Levothyroxine Sodium 100 mcg 07/01/18 06:00 07/02/18 06:51 Synthroid IV 100 mcg DAILY@0600 KATIE Administration Morphine Sulfate 1 mg 06/28/18 11:46 07/01/18 21:29 Morphine IV 1 mg Q6H PRN Administration Chest Pain unrelieved by NTG Simple Syrup 15 ml 06/28/18 13:47 Simple Syrup FEEDTUBE PRN PRN Hypoglycemia Simple Syrup 30 ml 06/28/18 13:47 Simple Syrup FEEDTUBE PRN PRN Hypoglycemia Sodium Bicarbonate 325 mg 06/28/18 13:47 Sodium Bicarbonate FEEDTUBE PRN PRN For Clogged Feeding Tube Sodium Chloride 10 ml 06/25/18 22:00 07/01/18 21:32 Sodium Chloride Flush Syringe 10 Ml IV 10 ml BID KATIE Administration Sodium Chloride 10 ml 06/25/18 16:47 Sodium Chloride Flush Syringe 10 Ml IV PRN PRN LINE FLUSH Tamsulosin HCl 0.4 mg 06/26/18 10:00 07/01/18 09:23 Flomax PO 0.4 mg QDAY KATIE Administration
[2018-07-02] MEDS: HEPARIN SUB-Q SCH (14:52)
[2018-07-02] MEDS: SODIUM CHLORIDE FLUSH SYRINGE 10 ML IV SCH (14:53)
[2018-07-02] MEDS: FLOMAX PO SCH (14:53)
--- NOTE | 2018-07-02 14:58 | Event Note ---
Date: 07/02/18
--- NOTE | 2018-07-02 16:16 | Event Note ---
Date: 07/02/18 Nurse called and reported that patient . When I examined the patient ,Patient is unresponsive Pupils dialated and fixed ,no cardipulmonary activity noted. Pronounced . Time of : 15:43 hrs [3:43 pm] on 07/02/2018 Informed patient's son Mr.Arthur Zamora [[phone]]
--- NOTE | 2018-07-02 16:31 | Death Summary ---
Summary - Providers Date of service: 07/02/18 Consults: 06/25/18 17:22 Consult to Physician [CONS] Routine Comment: Dr. Harrington notified @ 09:30- [facility] Consulting Provider: WOLF HARRINGTON Physician Instructions: Reason For Exam: ARF/ESRD 06/25/18 20:36 Consult to Physician [CONS] Routine Comment: Dr. Lo spoke with Dr. Gabriel @ 2030 Consulting Provider: CHELSEA GABRIEL Physician Instructions: Reason For Exam: AAA Infrarenal 06/26/18 17:26 Consult to Physician [CONS] Routine Comment: Consulting Provider: ASHLEY SETHI Physician Instructions: Reason For Exam: Enlarged prostate/unable to pass coelho 06/27/18 10:06 Consult to Wound/ET Nurse [CONS] Routine Reason For Exam: wound eval, to Rt. side 06/27/18 10:54 Speech Therapy Evaluation and Treat [CONS] Stat Reason For Exam: unable to swallow, NPO, nutrition 06/27/18 11:27 Consult to Physician [CONS] Urgent Comment: Consulting Provider: CHELSEA GABRIEL Physician Instructions: Vasc cath placement Reason For Exam: Vasc cath placement 06/27/18 15:45 Consult to Dietitian/Nutrition [CONS] Routine Physician Instructions: Assess nutrtn needs, initiate, modify, manage TF Reason For Exam: Reason for Consult: Write/Manage Tube Feeding Reason for Consult: Write/Manage Tube Feeding 06/28/18 09:58 PICC Line Insertion [Consult to PICC Line RN] [CONS] Routine Reason For Exam: Levophed Type Line:: PICC 06/29/18 10:49 Consult to Physician [CONS] Routine Comment: Consulting Provider: BONNIE HKAN Physician Instructions: Reason For Exam: Cr Care consult Attending: CHINYERE SERNA - summary Date of admission: 06/25/18 16:47 Date of : 07/02/18 (at 15:43 hrs [ 3:43 pm]) Reason for admission: altered level of consciousness/sepsis and septic shock Significant findings: 78-year-old male patient a resident of assisted living facility with history of hypertension, dyslipidemia ,hypothyroidism not on any medications ,BPH, superficial sacral decubitus ulcers was admitted through emergency room with altered level of consciousness and unresponsiveness .Workup in ER is consistent with sepsis, acute renal failure, hypernatremia, leukocytosis, dehydration, rhabdomyolysis, stage II decubitus ulcers and metabolic encephalopathy. Sepsis protocol initiated.patient was hypotensive requiring pressor's,admitted to ICU on pressors evaluated by critical care, nephrology initiated hemodialysis. Medications optimized, Today's more alert and awake being transferred out of ICU to [facility].Patient is off pressor and being transferred to [facility] for further evaluation and management, GEN care directive reported that patient has a DO NOT RESUSCITATE document and faxed to the hospital. Today patient continued to deteriorate and went into respiratory failure, nurse called and reported that patient When I evaluated the patient, patient is unresponsive, pupils dilated and fixed, no cardiopulmonary activity noted Pronounced Assessment and plan; --Acute respiratory failure --Cardiopulmonary arrest --DO NOT RESUSCITATE status --Septic shock; off levophed Closely monitor and adjust as needed --Sepsis/leukocytosis/received empiric antibiotics, cult negative to date.WBC trending down, monitor off antibiotics --Acute Renal failure; nephrology initiated hemodialysis, HD per schedule --Dyslipidemia; hold statin in view of rhabdomyolysis --Rhabdomyolysis CK 6427; hemodialysis, gentle hydration CK improved to [id number] -[id number], statins on hold --Bladder outlet obstruction; secondary to enlarged prostate urology evaluated the patient, continuous Coelho catheterization Patient will follow urology outpatient --Moderate malnutrition/hypoalbuminemia; nutrition supplements and supportive care --Abdominal aortic aneurysm 6.5 cm impending rupture; on CT abdomen, Dr. Mazariegos discussed with vascular , advised to monitor, medical management, no indication for patient transfer .Vascular following --Stage II decubitus ulcers; continue wound care. Patient Total time spent 45 minutes Procedures/treatments rendered: Central line placement Pertinent studies: CT head Cervical spine CT Abdominal and pelvic CT Hip and pelvic x-ray Renal ultrasound Abdominal ultrasound Multiple chest x-rays Central line placement Disposition: - Final diagnosis (1) Acute respiratory failure Note: Final diagnosis: (2) Cardiopulmonary arrest Note: Final diagnosis: (3) Septic shock Note: Final diagnosis: (4) Acute renal failure Note: Final diagnosis: (5) Bladder outlet obstruction Note: Final diagnosis: (6) Moderate malnutrition Note: Final diagnosis: (7) Rhabdomyolysis Qualifiers: Rhabdomyolysis type: traumatic Encounter type: initial encounter Qualified Code(s): T79.6XXA - Traumatic ischemia of muscle, initial encounter Note: Final diagnosis: (8) Sepsis Qualifiers: Sepsis type: sepsis due to unspecified organism Qualified Code(s): A41.9 - Sepsis, unspecified organism Note: Final diagnosis: (9) Aortic aneurysm without rupture Qualifiers: Aortic location: abdominal aorta Qualified Code(s): I71.4 - Abdominal aortic aneurysm, without rupture Note: Final diagnosis:
[2018-07-03 18:49] VITALS: BP 95/48
[2018-07-03 20:45] LABS: Myeloperoxidase Antibody <1.0 AI (<1.0)
[2018-07-04 12:16] LABS: ANA Screen, IFA Negative (Negative)
== END 2018-07-02 18:50 | DRG 871 ==
LOC: ED 11:27 → IMCU 16:47 → 4A 06-28 08:07 → CC1 06-28 08:29 → IMCU 07-01 20:18
PROVIDERS: ADMIT Internal Medicine; ATTEND Internal Medicine
PROC: 5A1D70Z Performance of Urinary Filtration, Intermittent, Less than 6 Hours Per Day (ICD-10-PCS; 2018-06-27)
PROC: 02HV33Z Insertion of Infusion Device into Superior Vena Cava, Percutaneous Approach (ICD-10-PCS; 2018-06-27)
PROC: B548ZZA Ultrasonography of Superior Vena Cava, Guidance (ICD-10-PCS; 2018-06-27)
PROC: 5A1D70Z Performance of Urinary Filtration, Intermittent, Less than 6 Hours Per Day (ICD-10-PCS; 2018-06-28)
PROC: 02HV33Z Insertion of Infusion Device into Superior Vena Cava, Percutaneous Approach (ICD-10-PCS; 2018-06-28)
PROC: 5A1D70Z Performance of Urinary Filtration, Intermittent, Less than 6 Hours Per Day (ICD-10-PCS; 2018-06-29)
PROC: 5A1D70Z Performance of Urinary Filtration, Intermittent, Less than 6 Hours Per Day (ICD-10-PCS; 2018-06-30)
PROC: 4A033R1 Measurement of Arterial Saturation, Peripheral, Percutaneous Approach (ICD-10-PCS; principal; 2018-07-02)
PROC: 5A1D70Z Performance of Urinary Filtration, Intermittent, Less than 6 Hours Per Day (ICD-10-PCS; 2018-07-02)
DX: A41.9 Sepsis, unspecified organism (principal); N17.0 Acute kidney failure with tubular necrosis; N18.6 End stage renal disease; G93.41 Metabolic encephalopathy; R65.21 Severe sepsis with septic shock; I12.0 Hypertensive chronic kidney disease with stage 5 chronic kidney disease or end stage renal disease; E87.0 Hyperosmolality and hypernatremia; N13.8 Other obstructive and reflux uropathy; E44.1 Mild protein-calorie malnutrition; R64 Cachexia; Z66 Do not resuscitate; E03.9 Hypothyroidism, unspecified; N40.0 Benign prostatic hyperplasia without lower urinary tract symptoms; T79.6XXA Traumatic ischemia of muscle, initial encounter; X58.XXXA Exposure to other specified factors, initial encounter; I71.4 Abdominal aortic aneurysm, without rupture; E78.5 Hyperlipidemia, unspecified; N40.1 Benign prostatic hyperplasia with lower urinary tract symptoms; I48.91 Unspecified atrial fibrillation; L89.152 Pressure ulcer of sacral region, stage 2; Z68.26 Body mass index [BMI] 26.0-26.9, adult; Z79.82 Long term (current) use of aspirin
CPT/HCPCS: 36415; 36600; 70450; 71045; 72125; 73521; 74018; 74176; 76700; 76770; 80048; 80053; 80061; 80074; 80076; 80307; 80320; 81001; 82140; 82550; 82553; 82570; 82803; 82962; 83520; 84100; 84153; 84156; 84165; 84295; 84300; 84443; 84484; 84520; 85007; 85025; 85610; 85730; 86021; 86038; 86160; 86162; 86225; 87040; 87806; 93005; 93010; 94760; 96361; 96365; G0378; G0480; J1630; J1644; J2270; J2543; J3370; J7030; J7040; J7070